=== PATIENT | female | born 1975 | race Caucasian/White ===

== ENCOUNTER → 2019-08-24 13:41 | Outpatient (BNVA) | payer MEDICAID, SELFPAY | PROVIDERS: PCP Physician Assistant; Visit Provider Nurse Practitioner | DX: G89.4 Chronic pain syndrome (principal); M54.5 Low back pain; M79.2 Neuralgia and neuritis, unspecified; Z79.891 Long term (current) use of opiate analgesic | CPT/HCPCS: 99214 ==

== ENCOUNTER 2019-08-31 07:04 | Outpatient (CLI) | payer MEDICAID, SELFPAY ==
[2019-08-31 07:59] VITALS: BP 133/79; PULSE 84; RESP 18; TEMP 36.6; O2SAT 94
--- NOTE | 2019-08-31 08:01 | PM.HPUD ---
H&P update H&P Update: DATE OF SURGERY/PROCEDURE: 08/31/19 DATE H&P PERFORMED: 08/31/19 Full H&P Perinent History: Medical/Surgical History: Medical History (Updated 08/24/19 @ 14:18 by CATRACHO Bryan) Arnold-Chiari malformation (Inactive) Chronic pain disorder (Acute) Facet arthropathy, lumbosacral (Acute) Hx of thrombosis of lower extremity (Acute) due to blood clots right leg 2017 Long-term use of high-risk medication (Chronic) Neuralgia (Chronic) Family History: Family History (Updated 08/24/19 @ 14:04 by FLORENCIO Rowe) Mother Stroke Social History: Social History Smoking and tobacco status: former smoker Alcohol intake: never
--- NOTE | 2019-08-31 08:01 | PM.OP ---
Operative Report Date of procedure: 08/31/19 Pre-op Diagnosis: Mechanical complication of gastrostomy tube. Post-op diagnosis: same Procedure Done: Change of gastrostomy tube. Pathology: none sent Surgeon: Ronny Mccarty Anesthesia: None Estimated blood loss (mL): 0 Condition: stable Procedure: The patient was encountered in the GI lab. The existing gastrostomy tube balloon was already deflated and the 16 [place]ar[place]uan tube was removed intact. A new 18 [place]araguan JULIETA gastrostomy tube was easily inserted into the gastrostomy tract and the balloon was inflated with 10 mL of sterile saline. The bolster was brought down to the skin over the top of a drain sponge. The patient was hoping to get a little larger tube in place which we did today; I made the patient aware that perhaps the next time this needs to be replaced, we can move up to a 20 [place]uan tube. The patient was discharged from the GI lab in stable condition following the procedure.
[2019-08-31 08:09] VITALS: BMI 31.3
== END 2019-08-31 07:05 | disposition home or self-care (01) ==
PROVIDERS: PCP Physician Assistant; Visit Provider Surgery
DX: K94.23 Gastrostomy malfunction (principal)
CPT/HCPCS: 12345; 43760; 43762; B4087

== ENCOUNTER 2019-09-14 14:20 | Outpatient (CLI) | payer MEDICAID, SELFPAY ==
--- NOTE | 2019-09-14 14:23 | MM_ITS ---
WS: [id number] SCREENING DIGITAL MAMMOGRAM WITH CAD HISTORY: SCREENING COMPARISON: None available. Bilateral CC and MLO views submitted. Computer aided detection analyzed. Breast composition: There are scattered areas of fibroglandular density. No suspicious masses, microc alcifications or architectural distortion. MM/[place] [id number] IMPRESSION: BI-RADS: 1-Negative FOLLOW UP: 1 Year Follow-up
== END 2019-09-14 14:21 | disposition home or self-care (01) ==
LOC: RADSHAW 14:20
PROVIDERS: PCP Physician Assistant; Visit Provider Physician Assistant
DX: Z12.31 Encounter for screening mammogram for malignant neoplasm of breast (principal)
CPT/HCPCS: 77067

== ENCOUNTER → 2019-11-02 14:03 | Outpatient (BNVA) | payer MEDICARE, MEDICAID, SELFPAY | PROVIDERS: PCP Physician Assistant; Visit Provider Nurse Practitioner | DX: G89.4 Chronic pain syndrome (principal); M54.9 Dorsalgia, unspecified; Q07.00 Arnold-Chiari syndrome without spina bifida or hydrocephalus; Z79.891 Long term (current) use of opiate analgesic | CPT/HCPCS: 99213; 99214 ==

== ENCOUNTER → 2020-01-09 10:46 | Outpatient (BNVA) | payer MEDICARE, MEDICAID, SELFPAY | PROVIDERS: PCP Physician Assistant; Visit Provider Anesthesiology | DX: G89.4 Chronic pain syndrome (principal); M54.41 Lumbago with sciatica, right side; M54.42 Lumbago with sciatica, left side; M54.9 Dorsalgia, unspecified; Q07.00 Arnold-Chiari syndrome without spina bifida or hydrocephalus; Z79.891 Long term (current) use of opiate analgesic | CPT/HCPCS: 99213; 99214 ==

== ENCOUNTER → 2020-02-29 12:45 | Outpatient (BNVA) | payer MEDICARE, MEDICAID, SELFPAY | PROVIDERS: PCP Physician Assistant; Visit Provider Nurse Practitioner | DX: G89.4 Chronic pain syndrome (principal); M54.41 Lumbago with sciatica, right side; M54.42 Lumbago with sciatica, left side; Q07.00 Arnold-Chiari syndrome without spina bifida or hydrocephalus; Z79.891 Long term (current) use of opiate analgesic | CPT/HCPCS: 99213 ==

== ENCOUNTER 2020-04-04 10:00 | Outpatient (CLI) | payer MEDICARE, MEDICAID, SELFPAY ==
--- NOTE | 2020-04-04 10:05 | XR_ITS ---
WS: [id number] DEXA (DUAL ENERGY X-RAY ABSORPTIOMETRY) Bone mineral density was performed using a [email or web address] machine. HISTORY: POSTMENOPAUSAL ESTROGEN DEFICIENCY COMPARISON: None available. Lumbar spine BMD (L1-L4): 1.198 g/cm2 T score: 0.2 Z score: -0.4 Total hip BMD: Left: 0.808 g/cm2. T score: -1.6 Z score: -1.7 Right: 0.736 g/cm2. T score: -2.2 Z score: -2.3 10 year probability of a major osteoporotic fracture is 6%. XR/XR DEXA axial skeleton* [id number] IMPRESSION: OSTEOPENIA based upon the WHO classification for females.
== END 2020-04-04 10:01 | disposition home or self-care (01) ==
PROVIDERS: PCP Physician Assistant; Visit Provider Physician Assistant
DX: Z78.0 Asymptomatic menopausal state (principal); M85.89 Other specified disorders of bone density and structure, multiple sites; M54.10 Radiculopathy, site unspecified
CPT/HCPCS: 77080; 95910

== ENCOUNTER 2020-04-22 08:02 | Outpatient (CLI) | payer MEDICARE, MEDICAID, SELFPAY ==
--- NOTE | 2020-04-22 | MR_ITS ---
WS: [id number] MRI LUMBAR SPINE NONCONTRAST HISTORY: RADICULAR LOW BACK PAIN COMPARISON: None available. TECHNIQUE: Sagittal and axial multisequence imaging is submitted. Alicia 1 malformation. Pegging and inferior displacement of the cerebellar tonsils. Normal lumbar alignment with no compression fractures or marrow edema. Mild disc space narrowing and desiccation at L5-S1 and at T10-11. Conus terminates normally at L1. L1-L2: Normal. L2-L3: Normal. L3-L4: Mild annular disc bulging with facet and ligamentum flavum hypertrophy. Very minimal narrowing of the subarticular recesses. No significant stenosis. L4-L5: Broad-based central to RIGHT paracentral disc protrusion contacting the thecal sac. Disc abuts the L5 nerve roots with greater displacement of the RIGHT L5 nerve root. Mild central stenosis. Mode rate subarticular recess narrowing. L5-S1: Mild annular disc bulging with a focal central disc protrusion. Disc and facet joint arthritis encroaching upon the subarticular recesses. Moderate LEFT and mild RIGHT subarticular recess stenosi s. Paravertebral soft tissues are normal. Aortic stent graft is noted. MR/MR lumbar spine wo con* [id number] IMPRESSION: 1. Moderate bilateral subarticular recess narrowing at L4-5 with encroachment upon the L5 nerve roots, RIGHT greater than LEFT. 2. Subarticular recess stenosis at L5-S1 with encroachment upon the S1 nerve r oots bilaterally, LEFT greater than RIGHT.
== END 2020-04-22 08:03 | disposition home or self-care (01) ==
LOC: RADSHAW 08:05
PROVIDERS: PCP Physician Assistant; Visit Provider Physician Assistant
DX: M54.16 Radiculopathy, lumbar region (principal); M48.07 Spinal stenosis, lumbosacral region
CPT/HCPCS: 72148

== ENCOUNTER → 2020-05-02 12:48 | Outpatient (BNVA) | payer MEDICARE, MEDICAID, SELFPAY | PROVIDERS: PCP Physician Assistant; Visit Provider Nurse Practitioner | DX: G89.4 Chronic pain syndrome (principal); M54.42 Lumbago with sciatica, left side; M54.41 Lumbago with sciatica, right side; M54.9 Dorsalgia, unspecified; G62.9 Polyneuropathy, unspecified; Z79.891 Long term (current) use of opiate analgesic | CPT/HCPCS: 99213 ==

== ENCOUNTER → 2020-05-09 08:57 | Outpatient (BNVA) | payer MEDICARE, MEDICAID, SELFPAY | PROVIDERS: PCP Physician Assistant; Visit Provider Licensed Practical Nurse | DX: M51.17 Intervertebral disc disorders with radiculopathy, lumbosacral region (principal); G62.89 Other specified polyneuropathies; F17.210 Nicotine dependence, cigarettes, uncomplicated | CPT/HCPCS: 99204 ==

== ENCOUNTER 2020-05-28 15:31 | Outpatient (RCR) | payer MEDICARE, MEDICAID, SELFPAY | END 2020-06-08 23:59 | disposition home or self-care (01) | LOC: SPT 15:31 | PROVIDERS: PCP Physician Assistant; Referring Provider Licensed Practical Nurse; Visit Provider Licensed Practical Nurse | DX: G62.89 Other specified polyneuropathies (principal); M51.17 Intervertebral disc disorders with radiculopathy, lumbosacral region | CPT/HCPCS: 97110; 97161 ==

== ENCOUNTER → 2020-06-04 13:57 | Outpatient (BNVA) | payer MEDICARE, MEDICAID, SELFPAY | PROVIDERS: PCP Physician Assistant; Visit Provider Licensed Practical Nurse | DX: M51.17 Intervertebral disc disorders with radiculopathy, lumbosacral region (principal); G62.89 Other specified polyneuropathies; F17.210 Nicotine dependence, cigarettes, uncomplicated | CPT/HCPCS: 99213 ==

== ENCOUNTER 2020-06-09 06:00 | Outpatient (RCR) | payer MEDICARE, MEDICAID, SELFPAY | END 2020-07-08 23:59 | disposition home or self-care (01) | LOC: SPT 06:00 | PROVIDERS: PCP Physician Assistant; Referring Provider Licensed Practical Nurse; Visit Provider Licensed Practical Nurse | DX: M51.17 Intervertebral disc disorders with radiculopathy, lumbosacral region (principal); G62.89 Other specified polyneuropathies | CPT/HCPCS: 97110 ==

== ENCOUNTER → 2020-06-24 08:19 | Outpatient (BNVA) | payer MEDICARE, MEDICAID, SELFPAY | PROVIDERS: PCP Physician Assistant; Visit Provider Specialist | DX: G57.30 Lesion of lateral popliteal nerve, unspecified lower limb (principal); M51.17 Intervertebral disc disorders with radiculopathy, lumbosacral region; Q07.00 Arnold-Chiari syndrome without spina bifida or hydrocephalus; F17.210 Nicotine dependence, cigarettes, uncomplicated | CPT/HCPCS: 95860; 99202 ==

== ENCOUNTER → 2020-06-26 13:21 | Outpatient (BNVA) | payer MEDICARE, MEDICAID, SELFPAY | PROVIDERS: PCP Physician Assistant; Visit Provider Anesthesiology | DX: G89.29 Other chronic pain (principal); M51.17 Intervertebral disc disorders with radiculopathy, lumbosacral region; M54.9 Dorsalgia, unspecified; G62.89 Other specified polyneuropathies; F17.210 Nicotine dependence, cigarettes, uncomplicated; Z79.891 Long term (current) use of opiate analgesic | CPT/HCPCS: 99213; 99214 ==

== ENCOUNTER → 2020-07-10 14:31 | Outpatient (BNVA) | payer MEDICARE, MEDICAID, SELFPAY | PROVIDERS: PCP Physician Assistant; Visit Provider Licensed Practical Nurse | DX: M51.17 Intervertebral disc disorders with radiculopathy, lumbosacral region (principal); G62.89 Other specified polyneuropathies; F17.210 Nicotine dependence, cigarettes, uncomplicated | CPT/HCPCS: 99213 ==

== ENCOUNTER → 2020-09-03 13:13 | Outpatient (BNVA) | payer MEDICARE, MEDICAID, SELFPAY | PROVIDERS: PCP Physician Assistant; Visit Provider Anesthesiology | DX: G89.4 Chronic pain syndrome (principal); M51.17 Intervertebral disc disorders with radiculopathy, lumbosacral region; F17.210 Nicotine dependence, cigarettes, uncomplicated; Z79.891 Long term (current) use of opiate analgesic; Z79.899 Other long term (current) drug therapy | CPT/HCPCS: 99213 ==

== ENCOUNTER → 2020-11-01 12:47 | Outpatient (BNVA) | payer MEDICARE, MEDICAID, SELFPAY | PROVIDERS: PCP Physician Assistant; Visit Provider Anesthesiology | DX: G89.4 Chronic pain syndrome (principal); M48.062 Spinal stenosis, lumbar region with neurogenic claudication; M51.17 Intervertebral disc disorders with radiculopathy, lumbosacral region; F17.210 Nicotine dependence, cigarettes, uncomplicated; Z79.891 Long term (current) use of opiate analgesic; Z79.899 Other long term (current) drug therapy | CPT/HCPCS: 99213 ==

== ENCOUNTER → 2020-11-22 13:07 | Outpatient (BNVA) | payer MEDICARE, MEDICAID, SELFPAY | PROVIDERS: PCP Physician Assistant; Visit Provider Orthopaedic Surgery | DX: Z01.812 Encounter for preprocedural laboratory examination (principal); Z20.822 Contact with and (suspected) exposure to COVID-19 | CPT/HCPCS: 87635 ==

== ENCOUNTER → 2020-11-27 12:59 | Outpatient (BNVA) | payer MEDICARE, MEDICAID, SELFPAY | PROVIDERS: Visit Provider Orthopaedic Surgery | DX: Z20.822 Contact with and (suspected) exposure to COVID-19 (principal) | CPT/HCPCS: 87635 ==

== ENCOUNTER 2020-12-02 11:48 | Day surgery (SDC) | payer MEDICARE, MEDICAID, SELFPAY ==
[2020-11-29 15:10] VITALS: BMI 33.9
[2020-12-02] VITALS (9 sets, daily range): BP systolic 93–151; BP diastolic 41–98; PULSE 71–100; RESP 12–20; TEMP 36.1–36.6; O2SAT 96–99
--- NOTE | 2020-12-02 | SCC_ITS ---
Procedure Done: L4/5 bilateral decompression 16.2 seconds of fluoroscopic guidance, for a cumulative dose of 12.21 mGy, was provided to Dr. Powell by the radiology department. C-arm images of the lumbar spine were saved for the patient's permanent record. [facility]
--- NOTE | 2020-12-02 | XR_ITS ---
WS: [id number] C-ARM RADIOGRAPHS LUMBAR SPINE; 5 IMAGES HISTORY: L4/5 bilateral decompression COMPARISON: 04/22/2020 Intraoperative imaging during decompression at the L4-5 level. XR/XR lumbar spine 2-3V* [id number] IMPRESSION: Intraoperative imaging during L4-5 decompression.
--- NOTE | 2020-12-02 12:04 | ECG_ITS ---
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
--- NOTE | 2020-12-02 12:21 | P.ANESASSM_ITS ---
Pre-Anesthetic Assessment Pre-Anesthetic Assessment: Height/Weight: Height 1.65 m Weight 92.533 kg Preop Diagnosis: lumbar stenosis Proposed Procedure: Operation Date: 12/02/20 13:30 Proposed Procedures p decompression L4/5 30430 m48.062(Bilateral) - Get Powell DO Social: Social History: No alcohol and No tobacco Exam: Pre-Anes Outpt Exam: alert, oriented x 3, clear to auscultation bilaterally and regular rate & rhythm Airway: Submandibular: WNL Cervical ROM: WNL Dentition: False History/ROS: No significant history except as noted Pulmonary: Pulmonary: None reported CV/HEM: CV/HEM: None reported Metabolic: Metabolic: Morbid obesity Anesthetic Plan: ASA status: 3 Anesthesia: Anesthesia Evaluation and General PFSH Anesthesia PFSH: Medical History Chronic pain disorder Encounter for long-term opiate analgesic use Facet arthropathy, lumbosacral History of DVT (deep vein thrombosis) Hx of thrombosis of lower extremity due to blood clots right leg 2017 Intervertebral disc disorder with radiculopathy of lumbosacral region Long-term use of high-risk medication Neuralgia Opioid contract exists Surgical History Arnold-Chiari malformation 01/2018 [facility] Posterior fossa decompression. Complication of feeding tube 10/01/2019 Dr. Javan Mccarty. Change of gastrostomy tube. Hx of colectomy colostomy and reversal 04/1999 placement then reversed 1999 Hx of hysterectomy Hx of knee surgery 1 total knee replacement right side then additional 3 surgeries on the right knee Hx of tubal ligation Family History Mother Stroke Social History Smoking and tobacco status: current every day smoker Alcohol intake: never Household members: family Marital status: Current occupational status: disabled History of recent travel: No Data Anesthesia Cardiac Studies: No Data to Display
[2020-12-02] MEDS: sodium chloride 0.9% 1,000 ML 30 ML IV (12:47)
--- NOTE | 2020-12-02 14:05 | W.PM.OPSUD ---
Surgery/Procedure H&P Update DATE OF PROCEDURE: December 02, 2020 DATE H&P PERFORMED: 12/02/20 H&P UPDATE INFORMATION: I have reviewed H&P completed within last 30 days, I have examined patient prior to procedure and No changes to prior documentation PREOP DIAGNOSIS: lumbar stenosis PLANNED PROCEDURE: Operation Date: 12/02/20 13:30 Proposed Procedures p decompression L4/5 92017 m48.062(Bilateral) - Get Powell DO
--- NOTE | 2020-12-02 14:27 | P.HP_ITS ---
Providers/Chief Complaint Primary Care Provider: Mis Womack Chief Complaint: lumbar spine decompression History of Present Illness [facility]hi [facility]onso [facility] 44 [facility] for evaluation of her back pain. She is established with pain management. She has had back pain for 3 years, gradually worsening over time. She states she has had injections approximately 1.5 years ago which did help some. She has tried formal physical therapy. She has chronic numbness and tingling to her bilateral lower extremities with the right lower extremity being worse. She has had an EMG/NCS of her bilateral lower e xtremtieis. Associated symptoms: Denies abdominal pain, chills, fever(s), nausea or vomiting Review of Systems Narrative: Const: Denies: fever(s) or chills Card: Denies: chest pain or dyspnea on exertion Resp: Denies: dyspnea or productive cough GI: Denies: abdominal pain, nausea or vomiting : Denies: difficulty voiding Musc: Reports: back pain Skin/Breast: Denies: changes in skin color or dry skin Neuro: Denies: numbness in extremities or weakness in extremities Psych: Denies: anxiety Gabriel/Lymph: Denies: easy bruising or easy bleeding Medications/Allergies Home Medications Medication Instructions Recorded Confirmed Last Taken Type atorvastatin 20 mg tablet 20 mg PO QDAY 08/24/19 12/02/20 12/01/20 History cholecalciferol (vitamin D3) 1,250 50,000 unit PO DIRECTED 08/24/19 12/02/20 12/01/20 History mcg (50,000 unit) capsule escitalopram oxalate 10 mg tablet 10 mg PO QDAY 08/24/19 12/02/20 12/01/20 History warfarin 5 mg tablet 5 mg PO QDAY 08/24/19 12/02/20 11/28/20 History magnesium oxide 400 mg PO DAILY 08/31/19 12/02/20 12/01/20 History warfarin 1 mg tablet See Rx Instructions PO DAILY 01/09/20 12/02/20 11/28/20 History bupropion HCl 100 mg tablet,12 hr 100 mg PO BID 04/04/20 12/02/20 12/01/20 History sustained-release hydrocodone 10 mg-acetaminophen 1 tab PO .FIVE TIMES DAY PRN 30 11/01/20 12/02/20 12/02/20 07:30 Rx 325 mg tablet Days #150 tab zonisamide 100 mg capsule 400 mg PO .HS #120 cap 11/01/20 12/02/20 12/01/20 Rx Allergies Allergy/AdvReac Type Severity Reaction Status Date / Time No Known Allergies Allergy Verified 12/02/20 12:39 PFSH Acute PFSH: Medical History Chronic pain disorder Encounter for long-term opiate analgesic use Facet arthropathy, lumbosacral History of DVT (deep vein thrombosis) Hx of thrombosis of lower extremity due to blood clots right leg 2017 Intervertebral disc disorder with radiculopathy of lumbosacral region Long-term use of high-risk medication Neuralgia Opioid contract exists Surgical History Arnold-Chiari malformation 01/2018 [facility] Posterior fossa decompression. Complication of feeding tube 10/01/2019 Dr. Javan Mccarty. Change of gastrostomy tube. Hx of colectomy colostomy and reversal 04/1999 placement then reversed 1999 Hx of hysterectomy Hx of knee surgery 1 total knee replacement right side then additional 3 surgeries on the right knee Hx of tubal ligation Family History Mother Stroke Social History Smoking and tobacco status: current every day smoker Alcohol intake: never Household members: family Marital status: Current occupational status: disabled History of recent travel: No Vitals/I&O/Wt Last Vital Signs Temp 97.6 F 12/02/20 12:42 Pulse 83 12/02/20 12:42 Resp 18 12/02/20 12:42 BP 138/71 12/02/20 12:42 Pulse Ox 98 12/02/20 12:42 Physical Exam Narrative: EXAM NARRATIVE: EXAM NARRATIVE: CONSTITUTIONAL: The patient is normal appearing, well groomed, cooperative and in no apparent distress. GENERAL: Patient in no acute distress. Well nourished. CARDIAC: Regular rate and rhythm. CHEST: Normal inspiratory effort, normal respiratory rate. ABDOMEN: Soft and non-tender. SKIN: Clear, warm and intact. NEURO?PSYCH: The patient is alert and oriented to person, place and time. NEUROVASCULAR: Upper Extremity Sensory - SILT. 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 Radial/ Ulnar/ Median in intact Lower Extremity Sensory - SILT. Motor Strength: Hip flexion L2/3; Ant/inner thigh: 5/5; Hip adduction L2/3: 5/5; Knee extension L4 Lat thigh: 5/5; Toe dorsiflexion L5: 5/5; Ankle dorsiflexion L5/ S1: 5/5; Plantar flexion S1: 5/5. DTR: Triceps 2+; Brachioradialis 2+; Patellar 2+; Achilles 2+. MUSCULOSKELETAL: UPPER EXTREMITIES: The patient had full active ROM in fingers, wrist, elbow, and shoulder. The patient demonstrated ability to fully flex/extend/abduct/adduct fingers, make ok sign, cross 2nd/3rd digits, extend 1st digit fully.. Radial pulse 2+, CR<2 seconds. LOWER EXTREMITIES: Pt has full, active ROM of toes, ankle, knee, and hip. Dorsalis pedis & posterior tibialis pulses 2+, CR<2 seconds. SPINE: Skin warm, dry, intact. A&P Assessment and plan (1) Lumbar stenosis with neurogenic claudication: lumbar decompression today Status: Acute Attestations Medical Necessity Statement*: failed conservative treatment Coding Level of Care Code Acute [employer] [facility] Diagnoses Lumbar stenosis with neurogenic claudication M48.062
[2020-12-02 15:18] LABS: Basophils # 0.1 10^3/uL (0.0-0.1); Basophils % 0.7 %; Eosinophils # 0.1 10^3/uL (0.0-0.8); Eosinophils % 1.4 %; Hematocrit 38.2 % (37.0-47.0); Hemoglobin 12.6 g/dL (11.5-15.3); Lymphocytes # 2.3 10^3/uL (0.8-4.8); Lymphocytes % 33.4 %; Mean Corpuscular Hemoglobin 31.3 pg (28.0-34.0); Mean Corpuscular Volume 94.8 fL (81-99); Monocytes # 0.5 10^3/uL (0.2-0.9); Monocytes % 6.4 %; Neutrophils # 4.05 10^3/uL (1.8-7.7); Neutrophils % 57.8 %; Nucleated Red Blood Cells % 0 %; Platelet Count 174 10^3/cmm (130-400); Red Blood Count 4.03 10^6/uL (4.1-5.3); Red Cell Distribution Width 12.3 % (12.1-15.1)
[2020-12-02] MEDS: fentaNYL 50 mcg/mL INJ 2mL IVP ×2 (16:20→16:25)
--- NOTE | 2020-12-02 16:22 | P.OP_ITS ---
Operative Report Date of procedure: December 02, 2020 Pre-op Diagnosis: lumbar stenosis Post-op diagnosis: same Procedure Done: L4/5 bilateral decompression Surgeon: Get Powell Anesthesia: General Estimated blood loss (mL): 5 Condition: stable Disposition: PACU Procedure: Patient is brought to the operative suite. After undergoing anesthesia they are placed in the supine position. All areas of impingement are well padded. Patient is then prepped and draped in the normal sterile fashion. A skin incision is made over the L4/5 level. This is confirmed under c-arm guidance. A series of dilators are passed and the tubular retractor is docked on the L4 lamina. A bovie is used to clear the soft tissue off the lamina and the L 4/5 facet joint. A high speed faiza is then used to perform the laminectomy and take down the medial aspect of the L 4/5 facet joint. A ke rrison rongeure was then used to take down the remaining lamina and smooth the edged of the laminectomy up to the point where the ligamentum flavum attaches. Attention was then brought to the medial aspect of the facet joint. The remaining medial aspect of the superior and inferior aspect of the facet joint were taken down with the kerrison from the pedicle of L4 to L 5. The facet joint had significant hypertrophy. Attention was then brought to the Ligamentum Flavum. The ligament was taken down from the lamina of L4 to L5 and out medially to the remaining facet joint. The ligament was thick. The dura was then exposed. The dura was in good repair. The L4 nerve was then traced with a curette out the L4/5 foramen and found to be adequately decompressed. The L5 nerve was traced with a curette around the L5 pedicle. The lateral recess was opened with a kerrison helping to further decompress the L5 nerve. The tubular retractor was then tilted to the contralateral side. The bovie was used to take down the soft tissue on the spinous process. The high speed faiza was used to take down the spinous process and then the contralateral lamina of L4. The kerrison rongeur was used to take down the remaining lamina to the point where the ligamentum flavum attached and the ligamentum flavum was taken down from L4 to L5. The kerrison rongeur was then used to reach across and take down the medial aspect of the contralateral L4/5 facet joint.The currete was used to trace the contralateral L4 nerve out the L4/5 foramen to make sure it was decompressed adequatesly and the L5 was traced around the L5 pedicle. The lateral recess was opened further with the kerrison to ensure the L5 is adequately decompressed. Wound is then irrigated copiously with saline and surgiflo is used to stop any bleeding. The tubular retractor is removed and the wound is closed with vicryl and monocryl suture. Glue is then used to protect the wound. A sterile dressing is then placed. Patient was then placed in the supine position and transferred to the PACU in stable condition.
--- NOTE | 2020-12-02 16:51 | SUR.PHASEII ---
1641 Received patient from pacu A&O states she is at 910 but lives at 810 at home. Was given IV med in PACU. will give oral med when tolerating fluids.
[2020-12-02] MEDS: HYDROcodone-acetaminophen 10-325 mg Tablet 1 TAB PO (17:18)
== END 2020-12-02 17:40 | disposition home or self-care (01) ==
PROVIDERS: PCP Physician Assistant; Visit Provider Orthopaedic Surgery
PROC: (CPT 63005; principal; 2020-12-02 13:10)
DX: M48.061 Spinal stenosis, lumbar region without neurogenic claudication (principal); E66.01 Morbid (severe) obesity due to excess calories; Z68.33 Body mass index [BMI] 33.0-33.9, adult; Z86.718 Personal history of other venous thrombosis and embolism; Z79.891 Long term (current) use of opiate analgesic; F17.210 Nicotine dependence, cigarettes, uncomplicated; Z79.01 Long term (current) use of anticoagulants; G89.29 Other chronic pain
CPT/HCPCS: 63047; 72100; 76000; 85025; 93005; J0690; J1100; J2405; J2704; J3010; J3490; J7030

== ENCOUNTER 2020-12-04 09:45 | Emergency (ER) | payer MEDICARE, MEDICAID, SELFPAY ==
[2020-12-04] VITALS (7 sets, daily range): BP systolic 134–170; BP diastolic 83–97; PULSE 98–111; RESP 18–20; TEMP 36.5; O2SAT 95–99; BMI 33.9
--- NOTE | 2020-12-04 09:56 | XR_ITS ---
WS: [id number] Exam: XR hip RT 2-3V wo/w pel* [id number] Date/Time of Exam: 12/04/2020 10:03 AM Reason For Exam: pain No fracture or dislocation. The joint compartment as well preserved. Small calcification seen along t he lateral margin of the acetabulum. XR/XR hip RT 2-3V wo/w pel* [id number] IMPRESSION: 1. No fracture or other significant finding.
[2020-12-04] MEDS: ondansetron 2 mg/ML SDV 2 mL 4 MG IVP (10:14)
[2020-12-04] MEDS: morphine 4 mg/mL SDV 1 mL 6 MG IVP ×2 (10:14→12:04)
--- NOTE | 2020-12-04 10:41 | W.ED.EXTPRO ---
HPI - Extremity Problem General: Chief complaint: Extremity Problem,Nontraumatic Stated complaint: r hip and back pain Time Seen by Provider: 12/04/20 09:46 History of Present Illness: HPI Narrative: 44-year-old female comes in complaining of right hip pain. 2 days ago she had a right L4-5 laminectomy. She told me she did not have a lot of extremity discomfort prior to that however reviewing Dr. Powell's note she is having bilateral numbness and lower extremity symptoms with the right being greater than the left on EMG. She has had no trauma or falls since the procedure. She denies any hip pain prior. Her pain is isolated to the hip but she initially states she was able to walk without difficulty but now has such severe pain she cannot walk. MD Complaint: joint pain Onset (ago): hour(s) Pain Consistency: constant Location: right (hip) Severity scale (1-10): 10 Quality: burning Radiation: none Relieving factors: nothing Exacerbating factors: range of motion, weight bearing and walking Associated symptoms: Deny arthralgias, chest pain, fever(s), myalgias, rash or short of breath Review of Systems Const: Denies: fever(s) ENMT: Denies: throat pain, ear or mastoid pain, nasal discharge or nasal congestion Card: Denies: chest pain Resp: Denies: dyspnea, productive cough or non-productive cough GI: Denies: abdominal pain, nausea, vomiting, hematemesis, coffee ground emesis, diarrhea, constipation, bloating, hematochezia or melena : Denies: flank pain, difficulty voiding, dysuria, urinary frequency or urinary urgency Skin/Breast: Denies: rash PFSH ED PFSH: Medical History Chronic pain disorder Encounter for long-term opiate analgesic use Facet arthropathy, lumbosacral History of DVT (deep vein thrombosis) Hx of thrombosis of lower extremity due to blood clots right leg 2017 Intervertebral disc disorder with radiculopathy of lumbosacral region Long-term use of high-risk medication Neuralgia Opioid contract exists Surgical History Arnold-Chiari malformation 01/2018 [facility] Posterior fossa decompression. Complication of feeding tube 10/01/2019 Dr. Javan Mccarty. Change of gastrostomy tube. Hx of colectomy colostomy and reversal 04/1999 placement then reversed 1999 Hx of hysterectomy Hx of knee surgery 1 total knee replacement right side then additional 3 surgeries on the right knee Hx of tubal ligation Family History Mother Stroke Social History Smoking and tobacco status: current every day smoker Alcohol intake: never Household members: family Marital status: Current occupational status: disabled History of recent travel: No Physical Exam Const: COMMON NORMALS: no acute distress GENERAL APPEARANCE: cooperative and comfortable ORIENTATION/CONSCIOUSNESS: Yes awake, Yes oriented to person, Yes oriented to place and Yes oriented to time HENMT: COMMON NORMALS: normocephalic, atraumatic, hearing grossly normal bilaterally and external ears normal HEAD & SCALP: normocephalic and atraumatic EXTERNAL EAR: Yes external ears normal Eye: COMMON NORMALS: Equal, round and reactive pupils present, EOMs intact bilaterally, conjunctivae normal and no scleral icterus CONJUNCTIVA: Yes conjunctivae normal PUPIL: Yes Equal, round and reactive pupils present Neck/C-Spine: COMMON NORMALS: full ROM, no lymphadenopathy, supple and no JVD Lymph: LYMPHATIC: no lymphadenopathy noted and no lymphedema noted Resp: COMMON NORMALS: normal respiratory effort, No retractions, No use of accessory muscles and clear to auscultation bilaterally AUSCULTATION: clear to auscultation bilaterally Cardio: COMMON NORMALS: no JVD, regular rate, regular rhythm and No murmurs present (Cardio) RATE: regular rate RHYTHM: regular rhythm GI: COMMON NORMALS: Soft to palpation and No hepatosplenomegaly present AUSCULTATION: Yes normoactive bowel sounds PALPATION: Yes Soft to palpation, No Tenderness to palpation present (GI), No Guarding due to palpation present (GI) and Yes No hepatosplenomegaly present Extremity: COMMON NORMALS: normal to inspection, capillary refill normal, no clubbing, cyanosis or edema, no calf tenderness and no pedal edema Neuro: SENSORIUM/ORIENTATION: Yes oriented to person, Yes oriented to place and Yes oriented to time Skin: COMMON NORMALS: no rashes or lesions noted GENERAL SKIN EXAM: no rashes or lesions noted Course Vital Signs: Vital signs: Vital Signs Temperature 97.7 F 12/04/20 09:52 Pulse Rate 98 12/04/20 14:38 Respiratory Rate 18 12/04/20 13:22 Blood Pressure 146/94 12/04/20 14:38 Pulse Oximetry 95 12/04/20 14:38 MDM - Extremity (Nontraumatic) MDM Narrative: Medical decision making narrative: Discussed with Dr. Powell he recommends steroids muscle relaxers follow-up in his office continue previously prescribed pain medications Lab Data: Labs: Lab Results 12/04/20 12/04/20 12/04/20 Range/Units 10:47 11:05 11:05 WBC 12.0 H (4.0-10.0) 10^3/ uL RBC 4.15 (4.1-5.3) 10^6/u L Hgb 12.9 (11.5-15.3) g/dL Hct 39.7 (37.0-47.0) % MCV 95.7 (81-99) fL MCH 31.1 (28.0-34.0) pg MCHC 32.5 (30.0-36.0) g/dL RDW 12.4 (12.1-15.1) % Plt Count 161 (130-400) 10^3/c mm MPV 9.2 (7.4-10.4) fL Neut % (Auto) 76.7 % Lymph % (Auto) 14.8 % Hunt % (Auto) 7.5 % Eos % (Auto) 0.4 % Baso % (Auto) 0.3 % Neut # (Auto) 9.18 H (1.8-7.7) 10^3/u L Lymph # (Auto) 1.8 (0.8-4.8) 10^3/u L Hunt # (Auto) 0.9 (0.2-0.9) 10^3/u L Eos # (Auto) 0.1 (0.0-0.8) 10^3/u L Baso # (Auto) 0.0 (0.0-0.1) 10^3/u L Nucleated RBC % (a uto) 0 % Nucleated RBCs # 0.0 /100WBC Sodium 133 L (136-145) mmol/L Potassium 3.7 (3.5-5.1) mmol/L Chloride 101 (98-107) mmol/L Carbon Dioxide 21 L (22-29) mmol/L Anion Gap 14.7 (5-19) BUN 13 (6-20) mg/dL Creatinine 0.9 (0.5-0.9) mg/dL GFR Calculation 67.4 L (90-130) mL/min Glucose 199 H (65-115) mg/dL Calculated Osmolal ity 282 L (285-295) mOsm/k g Calcium 8.6 (8.5-10.5) mg/dL Total Bilirubin 0.3 (0.15-1.2) mg/dL AST 14 (0-32) U/L ALT 14 (0-33) U/L Alkaline Phosphata se 85 (35-105) IU/L Total Protein 7.3 (6.6-8.7) g/dL Albumin 3.8 (3.5-5.2) g/dL Globulin 3.5 (1.3-4.6) g/dL Urine Color Straw (Yellow) Urine Appearance Clear (CLEAR) Urine pH 5 (5-7) Ur Specific Gravit y 1.010 (1.005-1.030) Urine Protein Neg (Negative) Urine Glucose (UA) Norm (Normal) Urine Ketones Negative (Negative) Urine Blood Neg (Negative) Urine Nitrate Negative (Negative) Urine Bilirubin Neg (Negative) Urine Urobilinogen Norm (Negative) mg/dL Ur Leukocyte Rebecca ase Negative (Negative) Discharge Plan Discharge Patient Disposition: Home Clinical Impression: Neuralgia Condition: Stable Prescriptions: New prednisone 20 mg tablet 20 mg PO TID Qty: 20 RF: 0 tizanidine 4 mg capsule 4 mg PO Q6H PRN (Reason: muscle spasticity) Qty: 20 RF: 0 No Action hydrocodone-acetaminophen 10-325 mg tablet 1 tab PO .FIVE TIMES DAY PRN (Reason: pain) 30 Days Qty: 150 RF: 0 magnesium oxide 400 mg magnesium Capsule 400 mg PO BEDTIME RF: 0 hydrocodone-acetaminophen 10-325 mg tablet 1 tab PO Q4H PRN (Reason: pain) 14 Days Qty: 60 RF: 0 atorvastatin 40 mg tablet 40 mg PO BEDTIME RF: 0 warfarin 5 mg tablet 5 mg PO BEDTIME RF: 0 gabapentin 100 mg capsule 100 mg PO BEDTIME RF: 0 Vitamin D2 1,250 mcg (50,000 unit) capsule 50,000 unit PO Q7D RF: 0 Zonegran 100 mg capsule 400 mg PO BEDTIME RF: 0 Discharge Orders: Discharge ED (Routine); Ordered 12/04/20 Ordered By: Brice Mercado Referrals: Mis Womack PA [Primary Care Provider] - Discharge Diet: Usual diet Discharge Activity: Limit activity as instructed Patient Instructions: Opioid Safety Coding Level of Care Code ED Insurance Claims Adjuster for Evelyneg Fwd Exam Comprehensive
[2020-12-04 11:04] LABS: Add Urine Microscopic? NO; Charge for UA Resulting for Rev
[2020-12-04 11:10] LABS: Basophils % 0.3 %; Eosinophils # 0.1 10^3/uL (0.0-0.8); Eosinophils % 0.4 %; Hematocrit 39.7 % (37.0-47.0); Hemoglobin 12.9 g/dL (11.5-15.3); Lymphocytes # 1.8 10^3/uL (0.8-4.8); Lymphocytes % 14.8 %; Mean Corpuscular HGB Conc 32.5 g/dL (30.0-36.0); Mean Corpuscular Hemoglobin 31.1 pg (28.0-34.0); Mean Corpuscular Volume 95.7 fL (81-99); Mean Platelet Volume 9.2 fL (7.4-10.4); Monocytes # 0.9 10^3/uL (0.2-0.9); Monocytes % 7.5 %; Neutrophils # 9.18 10^3/uL (1.8-7.7); Neutrophils % 76.7 %; Nucleated Red Blood Cells % 0 %; Platelet Count 161 10^3/cmm (130-400); Red Blood Count 4.15 10^6/uL (4.1-5.3); Red Cell Distribution Width 12.4 % (12.1-15.1)
[2020-12-04 11:33] LABS: Glucose Urine UA Norm (Normal); Protein Urine Neg (Negative); Urine Appearance Clear (CLEAR); Urine Color Straw (Yellow); pH Urine 5 (5-7)
--- NOTE | 2020-12-04 11:33 | PC.PHAR ---
pt states she takes care of her own medications-pt brought in some medication bottles-pt brought in 1mg of warfarin but states she is not taking that pt states that was dced 2 months ago-pt brought in medication bottle of bupropion 100mg tid filled on 11/05/20 30d/s pt states the pharmacy filled but states she is not taking pt states not taken for 3 months-pt states she is only taking warfarin 5mg po at hs
[2020-12-04 11:34] LABS: Bilirubin Urine Neg (Negative); Blood Urine Neg (Negative); Ketones Urine Negative (Negative); Leukocyte Esterase Urine Negative (Negative); Nitrate Urine Negative (Negative); Urobilinogen Urine Norm (Negative)
[2020-12-04 11:41] LABS: Alanine Aminotransferase 14 U/L (0-33); Albumin Level 3.8 g/dL (3.5-5.2); Alkaline Phosphatase 85 IU/L (35-105); Aspartate Amino Transferase 14 U/L (0-32); Blood Urea Nitrogen 13 mg/dL (6-20); Calcium 8.6 mg/dL (8.5-10.5); Carbon Dioxide 21 mmol/L (22-29); Chloride 101 mmol/L (98-107); Globulin 3.5 g/dL (1.3-4.6); Glomerular Filtration Rate 67.4 mL/min (90-130); Glucose 199 mg/dL (65-115); Osmolality Calculated 282 mOsm/kg (285-295); Sodium 133 mmol/L (136-145); Total Bilirubin 0.3 mg/dL (0.15-1.2); Total Protein 7.3 g/dL (6.6-8.7)
[2020-12-04] MEDS: dexamethasone 10 mg/mL INJ IVP (12:05)
[2020-12-04 12:06] LABS: Anion Gap 14.7 (5-19); Potassium 3.7 mmol/L (3.5-5.1)
[2020-12-04] MEDS: HYDROmorphone 1 mg/mL INJ 1 mL IVP ×2 (13:14→14:38)
== END 2020-12-04 14:49 | disposition home or self-care (01) ==
PROVIDERS: Emergency Provider Family Medicine; PCP Physician Assistant
DX: M79.2 Neuralgia and neuritis, unspecified (principal); Z79.01 Long term (current) use of anticoagulants; F17.210 Nicotine dependence, cigarettes, uncomplicated
CPT/HCPCS: 36415; 73502; 80053; 81003; 85025; 96374; 96375; 96376; 99283; J1100; J1170; J2270; J2405

== ENCOUNTER → 2021-01-07 12:45 | Outpatient (BNVA) | payer MEDICARE, MEDICAID, SELFPAY | PROVIDERS: PCP Physician Assistant; Visit Provider Anesthesiology | DX: G89.4 Chronic pain syndrome (principal); M51.17 Intervertebral disc disorders with radiculopathy, lumbosacral region; M54.9 Dorsalgia, unspecified; G62.89 Other specified polyneuropathies; F17.210 Nicotine dependence, cigarettes, uncomplicated; Z79.891 Long term (current) use of opiate analgesic; Z79.899 Other long term (current) drug therapy | CPT/HCPCS: 99213 ==

== ENCOUNTER → 2021-01-30 13:49 | Outpatient (BNVA) | payer MEDICARE, MEDICAID, SELFPAY | PROVIDERS: PCP Physician Assistant; Visit Provider Anesthesiology | DX: G89.4 Chronic pain syndrome (principal); M51.17 Intervertebral disc disorders with radiculopathy, lumbosacral region; M54.9 Dorsalgia, unspecified; M54.2 Cervicalgia; G62.89 Other specified polyneuropathies; G57.30 Lesion of lateral popliteal nerve, unspecified lower limb; F17.210 Nicotine dependence, cigarettes, uncomplicated; Z79.899 Other long term (current) drug therapy; Z79.891 Long term (current) use of opiate analgesic | CPT/HCPCS: 99214 ==

== ENCOUNTER 2021-03-17 07:00 | Outpatient (CLI) | payer MEDICARE, MEDICAID, SELFPAY ==
--- NOTE | 2021-03-17 07:15 | MR_ITS ---
WS: [id number] MRI LUMBAR SPINE NONCONTRAST TECHNIQUE: Sagittal T1, T2 and STIR imaging. Axial T1 and T2 imaging. CLINICAL INFORMATION: M48.061 - Spinal stenosis, lumbar region without neurogen... COMPARISON: MRI April 22, 2020 FINDINGS: Mild lumbar curve. No acute compression. No high-grade central canal stenosis. Prior postoperative ch anges right L4-5 hemilaminectomy. Small central protrusion T10-11. Chiari I malformation partially visualized in the registered client associate imaging. L1-L2: Normal. L2-L3: Left foraminal protrusion with mild left and no significant right foraminal narrowing. Mild fa cet arthropathy. L3-L4: Mild annular bulging with slight effacement of the ventral thecal sac. Left eccentric disc bul ging with mild left and no significant right foraminal narrowing. Slight effacement of the ventral th ecal sac. Moderate facet arthropathy. L4-L5: Postoperative changes right L4-5 hemilaminectomy new from previous with improved impingement t raversing right L5 nerve root. Mild residual narrowing of the subarticular recess. Mild central canal stenosis. Foramen are patent. Moderate facet arthropathy. L5-S1: Mild annular bulging with shallow central protrusion. Slight impingement traversing left great er than right S1 nerve roots. Mild facet arthropathy. Foramen are patent. Moderate facet arthropathy. Ventral concave compression of the thoracic cord at T5 level seen on the registered client associate imaging. This can be f urther evaluated with thoracic spine MRI without and with gadolinium. This may be incidental but diff erential considerations include arachnoid cyst, ventral adhesion/ventral cord herniation, or dorsal t horacic arachnoid web. Cord signal appears normal. Recommend correlation for thoracic cord symptoms. MR/MR lumbar spine wo con* [id number] IMPRESSION: 1. Mild lumbar curve. No acute compression. No high-grade central canal stenos is. 2. Right L4-5 hemilaminectomy is new from previous. No new disc protrusion. Mi ld residual narrowing of the subarticular recess improved from previous. 3. Broad-based shallow central protrusion L5-S1 impinges the traversing left g reater than right S1 nerve roots. 4. Mild left L3-4 foraminal narrowing. 5. Moderate facet arthropathy L3-4 and L4-L5. 6. Mild ventral compression of the thoracic cord at T5 level. This can be furt her evaluated with thoracic spine MRI without and with gadolinium if thoracic s pine symptoms. 7. Chiari I malformation partially visualized on the registered client associate imaging. This can b e further evaluated MRI head on an elective basis if not previously performed.
== END 2021-03-17 07:01 | disposition home or self-care (01) ==
LOC: RADSHAW 07:02
PROVIDERS: PCP Physician Assistant; Visit Provider Orthopaedic Surgery
DX: M48.061 Spinal stenosis, lumbar region without neurogenic claudication (principal); M51.27 Other intervertebral disc displacement, lumbosacral region; M47.816 Spondylosis without myelopathy or radiculopathy, lumbar region; G93.5 Compression of brain
CPT/HCPCS: 72148

== ENCOUNTER → 2021-04-01 13:02 | Outpatient (BNVA) | payer MEDICARE, MEDICAID, SELFPAY | PROVIDERS: PCP Physician Assistant; Visit Provider Anesthesiology | DX: G89.4 Chronic pain syndrome (principal); M51.17 Intervertebral disc disorders with radiculopathy, lumbosacral region; Q07.00 Arnold-Chiari syndrome without spina bifida or hydrocephalus; F17.210 Nicotine dependence, cigarettes, uncomplicated; Z79.891 Long term (current) use of opiate analgesic | CPT/HCPCS: 99213 ==

== ENCOUNTER 2021-04-23 11:18 | Outpatient (CLI) | payer MEDICARE, MEDICAID, SELFPAY ==
--- NOTE | 2021-04-23 11:31 | FL_ITS ---
WS: [id number] FL barium swallow modifd [id number] REASON FOR EXAM: Other dysphagia FLUOROSCOPY TIME: 1.5 minutes Swallowing of barium of varying consistencies was evaluated with fluoroscopy which was recorded for f jaylather review. Spot radiographs were also obtained. FINDINGS: There was no aspiration or significant retention of contrast bolus. Normal peristalsis in the distal esophagus. Detailed analysis report of the swallowing will be rendered by the speech therapy department after re view of the fluoroscopic recording. FL/FL barium swallow modifd [id number] IMPRESSION: Modified barium swallow as above.
== END 2021-04-23 11:19 | disposition home or self-care (01) ==
LOC: RAD 11:25
PROVIDERS: PCP Physician Assistant; Visit Provider Physician Assistant
DX: R13.19 Other dysphagia (principal)
CPT/HCPCS: 74230; 92611

== ENCOUNTER 2021-05-26 08:55 | Emergency (ER) | payer MEDICARE, MEDICAID, SELFPAY ==
[2021-05-26 09:01] VITALS: BP 156/87; PULSE 108; RESP 18; TEMP 36.8; O2SAT 97; BMI 33.7
--- NOTE | 2021-05-26 09:07 | USCV_ITS ---
Nhi Alonso Age: 45 Gender: F : 1975 Exam Date: 05/26/2021 09:22 Ordering Phys: Brice Mercado DO Technologist: Mis Reyes [place] [facility] [place]: RLE PAIN HISTORY: Lower extremity pain. PROCEDURES: Venous duplex imaging was performed in only the right lower extremity. The following venous structures were evaluated: common femoral vein, profunda vein, proximal portion of the greater saphenous vein, superficial femoral vein, and the popliteal vein. In addition, the posterior tibial and peroneal trunk were evaluated. Serial compression, augmentation maneuvers, and spectral Doppler flow evaluation were performed. FINDINGS: No evidence of DVT seen in any vessel visualized at this time. CONCLUSIONS No evidence of right lower extremity DVT. Umesh Beatty MD (Electronically Signed) Final Date: 26 May 2021 15:48 S
--- NOTE | 2021-05-26 09:27 | ED_ITS ---
HPI - Extremity Problem General: Chief complaint: Extremity Injury, Lower Stated complaint: SORE, BURNING, DISCOLORATION TO RLE(HX BLOOD CLOT) Time Seen by Provider: 05/26/21 08:56 History of Present Illness: HPI Narrative: 45-year-old female who presents to the emergency room with complaints of right leg pain. She reports pain at medial aspect of the right leg at the proximal lower leg she has scars in that area. They appear to be from varicose vein stripping there is multiple scars there however one is longer than would normally expect from a vein stripping procedure. Patient does smoke. She states she had a clot in her leg and was started on warfarin. Procedure was done in [place] several years ago. According to notes in chart she had a DVT but also had several knee surgeries. She reports she has been taking her Coumadin regularly. She has not really had any swelling in the leg. She denies any chest pain or shortness of breath. MD Complaint: joint pain Onset (ago): day(s) Pain Consistency: intermittent Location: right and lower extremity Quality: aching Radiation: distal Relieving factors: rest Exacerbating factors: weight bearing, walking and palpation Associated symptoms: Reports arthralgias; Deny chest pain, fever(s), myalgias, rash or short of breath Context: history of DVT Review of Systems Const: Denies: fever(s) ENMT: Denies: throat pain, ear or mastoid pain, nasal discharge or nasal congestion Card: Denies: chest pain Resp: Denies: dyspnea, productive cough or non-productive cough GI: Denies: abdominal pain, nausea, vomiting, hematemesis, coffee ground emesis, diarrhea, constipation, bloating, hematochezia or melena : Denies: flank pain, difficulty voiding, dysuria, urinary frequency or urinary urgency Skin/Breast: Denies: rash PFSH ED PFSH: Medical History Chronic pain disorder Encounter for long-term opiate analgesic use Facet arthropathy, lumbosacral History of DVT (deep vein thrombosis) Hx of thrombosis of lower extremity due to blood clots right leg 2017 Intervertebral disc disorder with radiculopathy of lumbosacral region Long-term use of high-risk medication Neuralgia Opioid contract exists Surgical History Arnold-Chiari malformation 01/2018 [facility] Posterior fossa decompression. Complication of feeding tube 10/01/2019 Dr. Javan Mccarty. Change of gastrostomy tube. Hx of colectomy colostomy and reversal 04/1999 placement then reversed 1999 Hx of hysterectomy Hx of knee surgery 1 total knee replacement right side then additional 3 surgeries on the right knee Hx of tubal ligation Family History Mother Stroke Social History Smoking and tobacco status: current every day smoker (less than 1 pck ) cigarettes Alcohol intake: never Household members: family Marital status: Current occupational status: disabled History of recent travel: No Physical Exam Const: COMMON NORMALS: no acute distress GENERAL APPEARANCE: cooperative and comfortable ORIENTATION/CONSCIOUSNESS: Yes awake, Yes oriented to person, Yes oriented to place and Yes oriented to time HENMT: COMMON NORMALS: normocephalic, atraumatic and hearing grossly normal bilaterally HEAD & SCALP: normocephalic and atraumatic Neck/C-Spine: COMMON NORMALS: no JVD Resp: COMMON NORMALS: normal respiratory effort, No retractions, No use of accessory muscles and clear to auscultation bilaterally AUSCULTATION: clear to auscultation bilaterally Cardio: COMMON NORMALS: no JVD, regular rate, regular rhythm and No murmurs present (Cardio) RATE: regular rate RHYTHM: regular rhythm GI: COMMON NORMALS: Soft to palpation and No hepatosplenomegaly present AUSCULTATION: Yes normoactive bowel sounds PALPATION: Yes Soft to palpation, No Tenderness to palpation present (GI), No Guarding due to palpation present (GI) and Yes No hepatosplenomegaly present Extremity: COMMON NORMALS: normal to inspection, capillary refill normal, no clubbing, cyanosis or edema and no pedal edema GENERAL: Yes calf tenderness (Right) Neuro: SENSORIUM/ORIENTATION: Yes oriented to person, Yes oriented to place and Yes oriented to time Skin: COMMON NORMALS: no rashes or lesions noted GENERAL SKIN EXAM: no rashes or lesions noted Course Vital Signs: Vital signs: Vital Signs Temperature 98.3 F 05/26/21 09:01 Pulse Rate 64 10/18/21 09:56 Respiratory Rate 18 05/26/21 09:56 Blood Pressure 120/69 05/26/21 09:56 Pulse Oximetry 97 05/26/21 09:56 MDM - Extremity (Nontraumatic) MDM Narrative: Medical decision making narrative: CBC is unremarkable venous duplex and arterial Doppler both normal no evidence of arterial occlusion or deep vein thrombosis. Recommend she continue the warfarin as previously prescribed can use topical Voltaren gel if persist follow-up with PCP return to the emergency room. Lab Data: Labs: Lab Results 05/26/21 05/26/21 09:37 09:37 WBC 7.5 10^3/uL 10^3/ uL (4.0-10.0) RBC 5.08 10^6/uL 10^6 /uL (4.1-5.3) Hgb 15.4 g/dL H g/dL (11.5-15.3) Hct 46.7 % % (37.0-47.0) MCV 91.9 fl fl (81-99) MCH 30.3 pg pg (28.0-34.0) MCHC 33.0 g/dL g/dL (30.0-36.0) RDW 12.6 % % (12.1-15.1) Plt Count 188 10^3/cmm 10^3 /cmm (130-400) MPV 9.2 fL fL (7.4-10.4) Neut % (Auto) 61.0 % % Lymph % (Auto) 32.1 % % Hays % (Auto) 4.8 % % Eos % (Auto) 1.3 % % Baso % (Auto) 0.5 % % Neut # (Auto) 4.59 10^3/uL 10^3 /uL (1.8-7.7) Lymph # (Auto) 2.4 10^3/uL 10^3/ uL (0.8-4.8) [place]ays # (Auto) 0.4 10^3/uL 10^3/ uL (0.2-0.9) Eos # (Auto) 0.1 10^3/uL 10^3/ uL (0.0-0.8) Baso # (Auto) 0.0 10^3/uL 10^3/ uL (0.0-0.1) Nucleated RBC % (a uto) 0 % % Nucleated RBCs # 0.0 /100WBC /100W BC PT Cancelled INR Cancelled Discharge Plan Discharge Patient Disposition: Home Clinical Impression: Knee pain, right Condition: Stable Prescriptions: New Voltaren Arthritis Pain 1 % gel 4 g topical QID Qty: 100 RF: 0 No Action hydrocodone-acetaminophen 10-325 mg tablet 1 tab PO .5 times a day 30 Days Qty: 150 RF: 0 gabapentin 300 mg capsule 300 mg PO TID RF: 0 Janumet 50-1,000 mg tablet 1 tab PO BID RF: 0 atorvastatin 40 mg tablet 40 mg PO BEDTIME RF: 0 warfarin 5 mg tablet 5 mg PO BEDTIME RF: 0 ergocalciferol (vitamin D2) [Vitamin D2] 1,250 mcg (50,000 unit) capsule 50,000 unit PO Q7D RF: 0 magnesium 500 mg Tablet 500 mg PO BEDTIME RF: 0 Zofran 4 mg Tablet 4 mg PO TID PRN (Reason: Nausea And Vomiting) RF: 0 melatonin 10 mg Tablet 10 mg PO BEDTIME PRN (Reason: Sleep) RF: 0 Discharge Orders: Discharge ED (Routine); Ordered 05/26/21 Ordered By: Brice Mercado Referrals: Mis Womack PA [Primary Care Provider] - Discharge Diet: Usual diet Discharge Activity: Resume usual activity Patient Instructions: Opioid Safety Activity Restrictions/Additional Instructions: Can use topical Voltaren gel or acetaminophen. Because you take Coumadin you should avoid nonsteroidal anti-inflammatory such as Aleve or ibuprofen. Coding Level of Care Code ED Lead Fabricator for Velvet Turner
--- NOTE | 2021-05-26 09:31 | USCV_ITS ---
Nhi Alonso Age: 45 Gender: F : 1975 Exam Date: 05/26/2021 09:36 Ordering Phys: Brice Mercado DO Technologist: Mis Reyes [place] [facility] [place]: [place] PAIN Risk Factors: Previous Vascular Surgery: RIGHT LEFT BP: 120.0 / BP: / 0 Waveform Velocity (cm/s) Velocity (cm/s) Waveform Triphasic 124.4 Iliac Prox Triphasic 108.4 Iliac Mid Triphasic 105.6 Iliac Distal Triphasic 95.9 MACHINE APPLICATOR CEMENTER Triphasic 110.3 SFA Prox Triphasic 93.7 SFA Mid Triphasic 76.1 SFA Dist Biphasic 46.0 POP Biphasic 73.8 DIRECTOR OF SERVICES N/A 0.0 DPA 1.0 SARINA FINDINGS Intimal thickening in the iliac and femoral artery on the right side. Triphasic Doppler waveforms in the iliac and femoral arteries. Biphasic waveforms in the popliteal and infrapopliteal vessels. No Doppler flow signals were noted in the right dorsalis pedis artery. Normal resting SARINA of 1.0 on the right side CONCLUSIONS 1. Normal resting SARINA on the right side. 2. Possible occlusion of the dorsalis pedis artery on the right side. Compared to the study from 07/14/2018, the possible occlusion of the right dorsalis pedis artery appears to be new. Dr. Mercado was informed about this finding Dr Gaurav Ortiz MD [facility] (Electronically Signed) Final Date: 27 May 2021 07:49 S
[2021-05-26 09:51] LABS: Basophils % 0.5 %; Eosinophils # 0.1 10^3/uL (0.0-0.8); Eosinophils % 1.3 %; Hematocrit 46.7 % (37.0-47.0); Hemoglobin 15.4 g/dL (11.5-15.3); Lymphocytes # 2.4 10^3/uL (0.8-4.8); Lymphocytes % 32.1 %; Mean Corpuscular Hemoglobin 30.3 pg (28.0-34.0); Mean Corpuscular Volume 91.9 fl (81-99); Mean Platelet Volume 9.2 fL (7.4-10.4); Monocytes # 0.4 10^3/uL (0.2-0.9); Monocytes % 4.8 %; Neutrophils # 4.59 10^3/uL (1.8-7.7); Nucleated Red Blood Cells % 0 %; Platelet Count 188 10^3/cmm (130-400); Red Blood Count 5.08 10^6/uL (4.1-5.3); Red Cell Distribution Width 12.6 % (12.1-15.1); White Blood Count 7.5 10^3/uL (4.0-10.0)
[2021-05-26 09:56] VITALS: BP 120/69; PULSE 64; RESP 18; O2SAT 97
== END 2021-05-26 10:12 | disposition home or self-care (01) ==
PROVIDERS: Emergency Provider Family Medicine; PCP Physician Assistant
DX: M25.561 Pain in right knee (principal); Z79.01 Long term (current) use of anticoagulants; Z86.718 Personal history of other venous thrombosis and embolism; F17.210 Nicotine dependence, cigarettes, uncomplicated
CPT/HCPCS: 85025; 93926; 93971; 99282

== ENCOUNTER → 2021-05-30 13:11 | Outpatient (BNVA) | payer MEDICARE, MEDICAID, SELFPAY | PROVIDERS: PCP Physician Assistant; Visit Provider Anesthesiology | DX: M51.17 Intervertebral disc disorders with radiculopathy, lumbosacral region (principal); M48.062 Spinal stenosis, lumbar region with neurogenic claudication; F17.290 Nicotine dependence, other tobacco product, uncomplicated; Z71.6 Tobacco abuse counseling; Z79.899 Other long term (current) drug therapy; Z79.891 Long term (current) use of opiate analgesic | CPT/HCPCS: 99213; 99214 ==

== ENCOUNTER → 2021-06-10 09:00 | Outpatient (BNVA) | payer MEDICARE, MEDICAID, SELFPAY | PROVIDERS: PCP Physician Assistant; Visit Provider Orthopaedic Surgery | DX: Z20.822 Contact with and (suspected) exposure to COVID-19 (principal); M51.17 Intervertebral disc disorders with radiculopathy, lumbosacral region | CPT/HCPCS: 87635 ==

== ENCOUNTER 2021-06-16 05:49 | Day surgery (SDC) | payer MEDICARE, MEDICAID, SELFPAY ==
[2021-06-05 12:20] VITALS: BMI 34.2
--- NOTE | 2021-06-05 12:58 | ANES.PREANE2 ---
Pre-Anesthetic Assessment Pre-Anesthetic Assessment: Height/Weight: Height 1.65 m Weight 93.44 kg Preop Diagnosis: lumbar stenosis Proposed Procedure: Operation Date: 06/16/21 07:00 Proposed Procedures p Lumbar Spine Decompression L5/S1 07478 M48.062(Not Applicable) - Get Powell, DO Was Beta Rina taken within 24 hours: N/A Was Clonidine taken within 24 hours: N/A Social: Social History: Tobacco Exam: Pre-Anes Outpt Exam: alert, oriented x 3, clear to auscultation bilaterally and regular rate & rhythm Airway: Submandibular: WNL Cervical ROM: WNL MP: 2 Dentition: False History/ROS: No significant complaints Pulmonary: Pulmonary: COPD Metabolic: Metabolic: DM Musc/skel: Musc/skel: Lower Back Pain and OA/DJD Neuropsych: Comments: Arnold-Chiari malformation. Chronic pain. Anesthetic Plan: ASA status: 3 Anesthesia: Anesthesia Evaluation and General Risk of > 500 ml blood loss (7ml/kg in children): No PFSH Anesthesia PFSH: Medical History (Updated 06/03/21 @ 00:01 by ) Chronic pain disorder Cigar smoker motivated to quit Encounter for long-term opiate analgesic use Facet arthropathy, lumbosacral History of DVT (deep vein thrombosis) Hx of thrombosis of lower extremity due to blood clots right leg 2017 Intervertebral disc disorder with radiculopathy of lumbosacral region Long-term use of high-risk medication Neuralgia Opioid contract exists Tobacco abuse counseling Surgical History Arnold-Chiari malformation 01/2018 [facility] Posterior fossa decompression. Complication of feeding tube 10/01/2019 Dr. Javan Mccarty. Change of gastrostomy tube. Hx of colectomy colostomy and reversal 04/1999 placement then reversed 1999 Hx of hysterectomy Hx of knee surgery 1 total knee replacement right side then additional 3 surgeries on the right knee Hx of tubal ligation Family History Mother Stroke Social History (Updated 05/30/21 @ 13:26 by Alejandra Corado LPN) Alcohol intake: never Household members: family Marital status: Current occupational status: disabled History of recent travel: No Data Anesthesia CBC & Chem 7: 06/05/21 12:31 06/05/21 12:31 Cardiac Studies: No Data to Display
[2021-06-05 12:59] LABS: Basophils % 0.5 %; Eosinophils # 0.1 10^3/uL (0.0-0.8); Eosinophils % 1.3 %; Hematocrit 45.5 % (37.0-47.0); Hemoglobin 15.1 g/dL (11.5-15.3); Lymphocytes # 2.4 10^3/uL (0.8-4.8); Lymphocytes % 28.5 %; Mean Corpuscular HGB Conc 33.2 g/dL (30.0-36.0); Mean Corpuscular Volume 93.4 fl (81-99); Mean Platelet Volume 9.4 fL (7.4-10.4); Monocytes # 0.5 10^3/uL (0.2-0.9); Monocytes % 5.8 %; Neutrophils # 5.34 10^3/uL (1.8-7.7); Neutrophils % 63.7 %; Nucleated Red Blood Cells % 0 %; Platelet Count 194 10^3/cmm (130-400); Red Blood Count 4.87 10^6/uL (4.1-5.3); Red Cell Distribution Width 12.9 % (12.1-15.1); White Blood Count 8.4 10^3/uL (4.0-10.0)
[2021-06-05 13:17] LABS: Blood Urea Nitrogen 11 mg/dL (6-20); Calcium 9.3 mg/dL (8.5-10.5); Carbon Dioxide 23 mmol/L (22-29); Chloride 102 mmol/L (98-107); Glomerular Filtration Rate 89.7 mL/min (90-130); Glucose 143 mg/dL (65-115); Osmolality Calculated 286 mOsm/kg (285-295); Sodium 137 mmol/L (136-145)
[2021-06-05 13:25] LABS: Anion Gap 16.3 (5-19); Potassium 4.3 mmol/L (3.5-5.1)
[2021-06-16] VITALS (8 sets, daily range): BP systolic 128–151; BP diastolic 75–83; PULSE 80–103; RESP 16–18; TEMP 36.2–36.8; O2SAT 96–100
--- NOTE | 2021-06-16 | SCC_ITS ---
Procedure Done: Right L5/ S1 laminectomy with partial facetectomy 7.5 seconds of fluoroscopic guidance, for a cumulative dose of 3.86 mGy, was provided to Dr. Powell by the radiology department. C-arm images of the lumbar spine were saved for the patient's permanent record. ALE
--- NOTE | 2021-06-16 | XR_ITS ---
WS: [id number] C-ARM RADIOGRAPHS LUMBAR SPINE; 3 IMAGES HISTORY: lumbar spine decompression COMPARISON: 12/02/2020 Intraoperative imaging during spine decompression. Hardware is noted overlying the L5-S1 disc level. Aortoiliac bypass stent noted. XR/XR lumbar spine 1V [id number] IMPRESSION: Intraoperative imaging during decompression surgery at the L5-S1 level.
[2021-06-16 06:17] LABS: Glucose Point of Care 162 mg/dL (70-110)
[2021-06-16] MEDS: sodium chloride 0.9% 1,000 ML 30 ML IV (06:19)
--- NOTE | 2021-06-16 06:35 | P.ANESASSM_ITS ---
Pre-Anesthetic Assessment Pre-Anesthetic Assessment: Height/Weight: Height 1.65 m Weight 93.44 kg Temp Pulse Resp BP Pulse Ox 97.4 F L 83 18 128/83 96 06/16/21 06:03 06/16/21 06:03 06/16/21 06:03 06/16/21 06:03 06/16/21 06:03 Preop Diagnosis: Lumbar stenosis L5-S1 Proposed Procedure: Operation Date: 06/16/21 07:00 Proposed Procedures p Lumbar Spine Decompression L5/S1 87711 M48.062(Not Applicable) - Get Powell DO Familial anesthetic complications: none Was Beta Rina taken within 24 hours: N/A Was Clonidine taken within 24 hours: N/A Last intake: Intake Last Liquid Date 06/15/21 Last Liquid Time 22:00 Last Solid Date 06/15/21 Last Solid Time 18:00 Social: Social History: Tobacco and No alcohol Exam: Pre-Anes Outpt Exam: alert, oriented x 3, clear to auscultation bilaterally and regular rate & rhythm Airway: Cervical ROM: WNL MP: 3 Dentition: False GI: Comments: hx colectomy w/ feeding tube - currently removed Metabolic: Metabolic: DM and Hyperlipidemia Neuropsych: Comments: arnold chiari malformation s/p decompresesion in 2018- some residual mild headache Anesthetic Plan: ASA status: 3 Anesthesia: General Risk of > 500 ml bl ood loss (7ml/kg in children): No Meds/Allergies Current Medications: Current Medications Generic Name Dose Route Start Last Admin Trade Name Freq PRN Reason Stop Dose Admin Sodium Chloride 1,000 mls @ 30 ml s/hr 06/16/21 06:15 06/16/21 06:19 Sodium Chloride 0.9% IV 06/17/21 06:14 30 mls/hr .Q24H LOUIS Administration PFSH Anesthesia PFSH: Medical History (Updated 06/03/21 @ 00:01 by ) Chronic pain disorder Cigar smoker motivated to quit Encounter for long-term opiate analgesic use Facet arthropathy, lumbosacral History of DVT (deep vein thrombosis) Hx of thrombosis of lower extremity due to blood clots right leg 2017 Intervertebral disc disorder with radiculopathy of lumbosacral region Long-term use of high-risk medication Neuralgia Opioid contract exists Tobacco abuse counseling Surgical History Arnold-Chiari malformation 01/2018 [facility] Posterior fossa decompression. Complication of feeding tube 10/01/2019 Dr. Javan Mccarty. Change of gastrostomy tube. Hx of colectomy colostomy and reversal 04/1999 placement then reversed 1999 Hx of hysterectomy Hx of knee surgery 1 total knee replacement right side then additional 3 surgeries on the right knee Hx of tubal ligation Family History Mother Stroke Social History (Updated 05/30/21 @ 13:26 by Alejandra Corado LPN) Alcohol intake: never Household members: family Marital status: Current occupational status: disabled History of recent travel: No Data Anesthesia CBC & Chem 7: 06/05/21 12:31 06/05/21 12:31 Other Labs: Laboratory Results - last 48 hr 06/16/21 06:14 POC Glucose 162 H Cardiac Studies: No Data to Display
--- NOTE | 2021-06-16 06:45 | PM.HP ---
Providers/Chief Complaint Primary Care Provider: Mis Womack Chief Complaint: lumbar spine decompression History of Present Illness Nhi Alonso is a 45 year old female She is 6 months post operative. She continues to have to complain of posterior leg pain that she did not have prior to her surgery that causes weakness. She also complains of muscle cramps to bilateral lower extremities. Edema to her bilateral lower extremity is significantly decreased since her last visit. Review of Systems Narrative: General ROS: negative for weight changes, fever ENT ROS: negative for nasal congestion, drainage or bleeding, sore throat, dysphagia or ear pain Eyes: PERRL Hematological and Lymphatic ROS: negative for swollen glands or abnormal bleeding Endocrine ROS: negative for polyuria/polydpsia or new changes in weight Respiratory ROS: negative for cough, shortness of breath, or wheezing Cardiovascular ROS: negative for chest pain or dyspnea on exertion Gastrointestinal ROS: negative for reflux, abdominal pain, change in bowel habits, or black or bloody stools Musculoskeletal ROS: negative for back pain, neck pain, or joint pain or swelling except for current problem Neurological ROS: negative for TIA or stoke symptoms Skin: no rashes Medications/Allergies Home Medications Medication Instructions Recorded Confirmed Last Taken Type atorvastatin 40 mg PO BEDTIME 12/04/20 06/16/21 06/15/21 History ergocalciferol (vitamin D2) 50,000 unit PO Q7D 12/04/20 06/16/21 06/15/21 History [Vitamin D2] warfarin 5 mg PO BEDTIME 12/04/20 06/16/21 06/12/21 History gabapentin 300 mg capsule 300 mg PO BID cap 04/15/21 06/16/21 06/15/21 History sitagliptin 50 mg-metformin 1,000 1 tab PO BID 04/15/21 06/16/21 06/12/21 History mg tablet diclofenac sodium [Voltaren 4 g TOPICAL QID #100 g 05/26/21 06/16/21 Unknown Rx Arthritis Pain] magnesium 500 mg PO BEDTIME 05/26/21 06/16/21 06/15/21 History melatonin 10 mg PO BEDTIME PRN 05/26/21 06/16/21 06/15/21 History ondansetron HCl [Zofran] 4 mg PO TID PRN 05/26/21 06/16/21 06/12/21 History hydrocodone 10 mg-acetaminophen 1 tab PO .5 times a day 30 Days 05/30/21 06/16/21 06/15/21 Rx 325 mg tablet #150 tab Allergies Allergy/AdvReac Type Severity Reaction Status Date / Time No Known Allergies Allergy Verified 06/05/21 12:12 PFSH Acute PFSH: Medical History (Updated 06/16/21 @ 06:46 by Get Powell, DO) Chronic pain disorder Cigar smoker motivated to quit Encounter for long-term opiate analgesic use Facet arthropathy, lumbosacral History of DVT (deep vein thrombosis) Hx of thrombosis of lower extremity due to blood clots right leg 2017 Intervertebral disc disorder with radiculopathy of lumbosacral region Long-term use of high-risk medication Neuralgia Opioid contract exists Tobacco abuse counseling Surgical History Arnold-Chiari malformation 01/2018 [facility] Posterior fossa decompression. Complication of feeding tube 10/01/2019 Dr. Javan Mccarty. Change of gastrostomy tube. Hx of colectomy colostomy and reversal 04/1999 placement then reversed 1999 Hx of hysterectomy Hx of knee surgery 1 total knee replacement right side then additional 3 surgeries on the right knee Hx of tubal ligation Family History Mother Stroke Social History (Updated 05/30/21 @ 13:26 by Alejandra Corado LPN) Alcohol intake: never Household members: family Marital status: Current occupational status: disabled History of recent travel: No Vitals/I&O/Wt Last Vital Signs Temp 97.4 F L 06/16/21 06:03 Pulse 83 06/16/21 06:03 Resp 18 06/16/21 06:03 BP 128/83 06/16/21 06:03 Pulse Ox 96 06/16/21 06:03 Physical Exam Narrative: EXAM NARRATIVE: CONSTITUTIONAL: The patient is a normal appearing [] in no apparent distress. GENERAL: Patient in no acute distress. CARDIAC: Regular rate and rhythm. CHEST: Normal inspiratory effort, normal respiratory rate. ABDOMEN: Soft and nontender. SKIN: Clear, warm and intact. NEURO?PSYCH: The patient is alert and oriented to person, place and time. Sensorv /SILT Motor StrengthShoulder abduction C5 5/5Wrist extension C6 5/5Elbow extension C7 5/5Hand External Relations Director C8 5/5Finger abduction T15/5 Radial/ Ulnar/ Median n intact LowerSensory (SILT)Motor StrengthHin flexion L2/3Ant/inner thigh 5/5Hip adduction L2/3 5/5Knee extension L4 Lat thigh, 5/5Toe dorsiflexion L5 5/5Ankle dorsiflexion L5/ D60Jnwiujd flexion S1 5/5 DTRBleeps 2+Triceps 2+Brachioradialis 2+Patellar 2+Achilles 2+ MUSCULOSKELETAL: [] UPPEREXTREMITIES: The patient had full active ROM in fingers, wrist, elbow, and shoulder. The patient demonstrated ability to fully flex/extend/abduct/adduct fingers, make ok sign, cross 2nd/3rd digits, extend 1st digit fully.. Radial pulse 2+, CR<2 seconds. LOWER EXTREMITIES: Pt has full, active ROM of toes, ankle, knee, and hip. Dorsalis pedis/posterior tibialis pulses 2+, CR<2 seconds. SPINE: Skin warm, dry, intact. Data : 06/05/21 12:31 06/05/21 12:31 A&P Assessment and plan (1) Lumbar stenosis with neurogenic claudication: Right L5/ S1 MIS decompression Status: Acute Attestations Medical Necessity Statement*: failed conservative tx Coding Level of Care Code Acute Manager Nursing for Chg Fwd Diagnoses Lumbar stenosis with neurogenic claudication M48.062
--- NOTE | 2021-06-16 06:47 | W.PM.OPSUD ---
Surgery/Procedure H&P Update DATE OF PROCEDURE: June 16, 2021 DATE H&P PERFORMED: 06/16/21 PREOP DIAGNOSIS: Lumbar stenosis L5-S1 PLANNED PROCEDURE: Operation Date: 06/16/21 07:00 Proposed Procedures p Lumbar Spine Decompression L5/S1 41949 M48.062(Not Applicable) - Get Powell DO
[2021-06-16 06:54] LABS: INR 0.97 (0.8-1.2)
[2021-06-16] MEDS: fentaNYL 50 mcg/mL INJ 2mL IVP (07:56)
--- NOTE | 2021-06-16 07:59 | P.OP_ITS ---
Operative Report Date of procedure: June 16, 2021 Pre-op Diagnosis: Lumbar stenosis L5-S1 Post-op diagnosis: same Procedure Done: Right L5/ S1 laminectomy with partial facetectomy Vegetable Specker: Ramos Villafana Vegetable Specker: The neurosurgical nurse practitioner, ALEAH Claire was needed for his expertise under the microscope. He was important and necessary throughout the procedure to complete in a safe and timely manner. He assisted with patient positioning prepping and draping tissue retraction suctioning of the operative field protection of the dural sac and tissue closure Anesthesia: General Estimated blood loss (mL): 5 Condition: stable Disposition: PACU Procedure: Right L5/ S1 laminectomy with partial facetectomy Patient is brought to the operative suite. After undergoing anesthesia they are placed in the prone position. All areas of impingement are well padded. Patient is then prepped and draped in the normal sterile fashion. A skin incision is made over the L5/S1 level. This is confirmed under c-arm guidance. A series of dilators are passed and the tubular retractor is docked on the L5 lamina. A bovie is used to clear the soft tissue off the lamina and the L 5/S1 facet joint. A high speed faiza is then used to perform the laminectomy and take down the medial aspect of the L 5/S1 facet joint. A kerrison rongeure was then used to take down the remaining lamina and smooth the edge of the laminectomy up to the point where the ligamentum flavum attaches. Attention was then brought to the medial aspect of the facet joint. The remaining medial aspect of the superior and inferior aspect of the facet joint were taken down with the kerrison from the pedicle of L5 to S1. The facet joint had significant hypertrophy. Attention was then brought to the Ligamentum Flavum. The ligament was taken down from the lamina of L5 to S1 and out medially to the remaining facet joint. The ligament was thick. The dura was then exposed. The dura was in good repair. The L5 nerve was then traced with a curette out the L5/S1 foramen and found to be adequately decompressed. The S1 nerve was traced with a curette around the S1 pedicle. The lateral recess was opened with a kerrison helping to further decompress the S1 nerve. Wound is then irrigated copiously with saline and surgiflo is used to stop any bleeding. The tubular retractor is removed and the wound is closed with vicryl and monocryl suture. Glue is then used to protect the wound. A sterile dressing is then placed. Patient was then placed in the supine position and transferred to the PACU in stable condition.
[2021-06-16] MEDS: HYDROcodone-acetaminophen 5-325 mg Tablet 1 TAB PO (08:30)
--- NOTE | 2021-06-16 13:46 | ANE.PACU2 ---
Inpatient post-anesthesia follow up: Airway intact: Yes Vital signs: Temperature 98.3 F Pulse Rate 80 Respiratory Rate 17 Blood Pressure 148/77 Pulse Oximetry 96 Oxygen Delivery Me thod Room Air Oxygen Flow Rate 8 Fraction of Inspir ed Oxygen Hydration adequate: Yes Nausea and vomiting: No Pain level: 2 Mental status: Baseline
== END 2021-06-16 08:45 | disposition home or self-care (01) ==
PROVIDERS: Anesthesiology; PCP Physician Assistant; Visit Provider Orthopaedic Surgery
PROC: (CPT 63005; principal; 2021-06-16 07:00)
DX: M48.062 Spinal stenosis, lumbar region with neurogenic claudication (principal); R25.2 Cramp and spasm; G89.29 Other chronic pain; F17.290 Nicotine dependence, other tobacco product, uncomplicated; Z86.718 Personal history of other venous thrombosis and embolism; F17.210 Nicotine dependence, cigarettes, uncomplicated; Z79.01 Long term (current) use of anticoagulants
CPT/HCPCS: 63047; 36416; 72020; 76000; 80048; 82962; 85025; 85610; J0690; J1100; J2405; J2704; J3010; J3490; J7030

== ENCOUNTER → 2021-07-29 10:01 | Outpatient (BNVA) | payer MEDICARE, MEDICAID, SELFPAY | PROVIDERS: PCP Physician Assistant; Visit Provider Anesthesiology | DX: M51.17 Intervertebral disc disorders with radiculopathy, lumbosacral region (principal); M48.062 Spinal stenosis, lumbar region with neurogenic claudication; F17.200 Nicotine dependence, unspecified, uncomplicated; Z79.899 Other long term (current) drug therapy; Z79.891 Long term (current) use of opiate analgesic; Z71.6 Tobacco abuse counseling | CPT/HCPCS: 99214 ==

== ENCOUNTER 2021-10-22 14:42 | Outpatient (CLI) | payer MEDICARE, MEDICAID, SELFPAY ==
--- NOTE | 2021-10-22 15:15 | MR_ITS ---
WS: [id number] MRI CERVICAL SPINE NONCONTRAST TECHNIQUE: Sagittal T1, T2 and STIR imaging. Axial T2, gradient, and fiesta imaging. CLINICAL INFORMATION: Q07.00 - Arnold-Chiari syndrome without spina bifida or h... COMPARISON: None. FINDINGS: Straightening of the normal cervical lordosis. Persistent low-lying cerebellar tonsils extending to t he C1-C2 level with mild crowding at the foramen magnum. Brain stem signal appears normal. Normal 4th ventricle. No syrinx within the cervical cord. No high-grade central canal stenosis. Cervical cord signal is normal. Minimal disc bulging C5-C6. Rep orted prior postoperative changes occipital craniectomy for Chiari decompression. C2-C3: Normal. C3-C4: Normal. C4-C5: No significant disc bulging. Mild facet arthropathy. Spinal canal and foramen are patent. C5-C6: Tiny shallow RIGHT pericentral protrusion. Slight effacement of ventral thecal sac. Mild facet arthropathy. Mild LEFT foraminal narrowing. C6-C7: No significant disc bulging. Spinal canal and foramen are patent. Mild facet arthropathy. C7-T1: Normal. MR/MR cervical spin wo con* [id number] IMPRESSION: 1. Straightening with slight reversal of the normal cervical lordosis. 2. Prior postoperative changes occipital craniectomy for Chiari decompression. Persistent low-lying cerebellar tonsils extending to the C1-C2 articulation. N ormal 4th ventricle. Mild crowding at the foramen magnum. Brainstem signal appe ars normal. Intracranial contents could be further evaluated with MRI head. 3. No syrinx in the cervical cord. 4. Tiny RIGHT pericentral protrusion C5-C6 with slight contact of the cervical cord. 5. Mild LEFT C5-C6 bony foraminal narrowing. 6. Mild facet arthropathy C4-C5 and C5-C6.
--- NOTE | 2021-10-22 16:00 | MR_ITS ---
WS: [id number] MRI LUMBAR SPINE WITH CONTRAST TECHNIQUE: Sagittal T1, T2 and STIR imaging. Axial T1 and T2 imaging. Post gadolinium imaging was obt ained. CLINICAL INFORMATION: M48.062 - Spinal stenosis, lumbar region with neurogenic ... COMPARISON: MRI 03/17/2021 and 04/22/2020 FINDINGS: Mild lumbar curve. No acute compression. No high-grade central canal stenosis. Prior RIGHT hemilamine ctomy L4-L5. Mild residual narrowing of the subarticular recess bilaterally. Central canal stenosis i mproved compared to April 22, 2020 and unchanged from March 17, 2021. No new disc protrusions. L1-L2: Normal. L2-L3: No significant disc bulging. Spinal canal and foramen are patent. L3-L4: Mild annular bulging. Slight impingement traversing RIGHT L4 nerve root in the subarticular re cess. Mild RIGHT L3-L4 foraminal narrowing. Mild facet arthropathy. This appears progressed compared to previous. L4-L5: Prior postoperative changes RIGHT hemilaminectomy. Mild residual central canal stenosis with s light narrowing of the subarticular recess bilaterally. No new disc protrusions. Mild facet arthropat hy. Foramen are patent. L5-S1: Broad-based central disc bulging with slight impingement traversing S1 nerve roots bilaterally . Recommend correlation for LEFT S1 nerve root symptoms. Mild facet arthropathy. Foramen are patent. This is unchanged from previous. Visualized pelvic bony structures: Normal. Paravertebral soft tissues: Normal. Mild ventral compression of the thoracic cord at T5 level. This can be further evaluated with thoraci c spine MRI without and with gadolinium if thoracic spine symptoms. Chiari I malformation partially visualized on the tool engineer imaging. MR/MR lumbar spine wo/w con [id number] IMPRESSION: 1. Prior postoperative changes RIGHT L4-L5 hemilaminectomy. No new disc protru sions. Mild residual narrowing subarticular recess bilaterally is unchanged. 2. Broad-based central disc bulging L5-S1 impinges the traversing LEFT greater than RIGHT S1 nerve roots. This is unchanged from previous. 3. Mild annular bulging L3-L4 with slight impingement on the RIGHT subarticula r recess and traversing RIGHT L4 nerve root appears more prominent compared to previous. Mild RIGHT L3-L4 foraminal narrowing. 4. Focal ventral displacement of the thoracic cord at the T5 level is unchange d from previous. This can be further evaluated with thoracic spine MRI without and with gadolinium 5. Stable Chiari 1 malformation partially visualized on the tool engineer imaging.
[2021-10-22] MEDS: gadobenate dimeglumine 20 mL vial IV (17:57)
== END 2021-10-22 14:43 | disposition home or self-care (01) ==
LOC: RAD 14:45
PROVIDERS: PCP Physician Assistant; Visit Provider Orthopaedic Surgery
DX: Q07.00 Arnold-Chiari syndrome without spina bifida or hydrocephalus (principal); M48.062 Spinal stenosis, lumbar region with neurogenic claudication; M96.1 Postlaminectomy syndrome, not elsewhere classified; M51.27 Other intervertebral disc displacement, lumbosacral region; M47.812 Spondylosis without myelopathy or radiculopathy, cervical region; M50.222 Other cervical disc displacement at C5-C6 level
CPT/HCPCS: 72141; 72158

== ENCOUNTER 2021-12-10 12:50 | Outpatient (CLI) | payer MEDICARE, MEDICAID, SELFPAY ==
--- NOTE | 2021-12-10 13:08 | MM_ITS ---
WS: [id number] BILATERAL 3D TOMOSYNTHESIS DIGITAL SCREENING MAMMOGRAPHY WITH CAD CLINICAL INFORMATION: SCREENING HISTORY: Screening mammogram. No current complaints. COMPARISON: September 14, 2019 TECHNIQUE: Bilateral CC and MLO views. FINDINGS: Scattered fibroglandular densities bilaterally. Incidental punctate calcifications. No suspicious foc al mass, asymmetry, calcifications, or architectural distortion. No evidence of malignancy. MM/[place] [id number] IMPRESSION: BI-RADS: 2-Benign FOLLOW UP: 1 Year Follow-up Recommend return to annual screening mammography.
== END 2021-12-10 12:51 | disposition home or self-care (01) ==
LOC: RADSHAW 12:55
PROVIDERS: PCP Physician Assistant; Visit Provider Physician Assistant
DX: Z12.31 Encounter for screening mammogram for malignant neoplasm of breast (principal)
CPT/HCPCS: 77063; 77067

== ENCOUNTER 2022-05-01 16:53 | Observation (INO) | payer MEDICARE, MEDICAID, SELFPAY ==
[2022-05-01 16:54] VITALS: BP 145/55; PULSE 111; RESP 20; TEMP 36.8; O2SAT 97; BMI 32.3
--- NOTE | 2022-05-01 16:54 | ED_ITS ---
HPI - Altered Mental Status General: Chief Complaint: Altered Mental Status Stated Complaint: AMS Time Seen by Provider: 05/01/22 16:54 History of Present Illness: Ms. Alonso is a 46-year-old lady with complex past medical history presents to the emergency department due to seizure-like event. She has been at her baseline health, laid down for nap. Suddenly family heard a bang and found the patient on the ground twitching. The patient does not recall any of these events including waking up or try to get out of bed. Denies history of similar. Mild generalized malaise. No other specific changes in health, exacerbating, or alleviating factors identified. Onset (ago): minute(s) Review of Systems General: Reports: 10 or more systems reviewed and unremarkable except in HPI and below PFSH ED PFSH: Medical History Chronic pain disorder Cigar smoker motivated to quit Dyslipidemia Encounter for long-term opiate analgesic use Facet arthropathy, lumbosacral History of DVT (deep vein thrombosis) Hx of thrombosis of lower extremity due to blood clots right leg 2017 Intervertebral disc disorder with radiculopathy of lumbosacral region Long-term use of high-risk medication Lumbar stenosis with neurogenic claudication Neuralgia Opioid contract exists T2DM (type 2 diabetes mellitus) Tobacco abuse counseling Surgical History Arnold-Chiari malformation 01/2018 [facility] Posterior fossa decompression. Complication of feeding tube 10/01/2019 Dr. Javan Mccarty. Change of gastrostomy tube. History of abdominal surgery 2x History of oophorectomy History of tonsillectomy and adenoidectomy Hx of colectomy colostomy and reversal 04/1999 placement then reversed 1999 Hx of hysterectomy Hx of knee surgery 1 total knee replacement right side then additional 3 surgeries on the right knee Hx of tubal ligation Family History Mother Stroke Social History Smoking and tobacco status: former smoker Alcohol intake: never Household members: family Marital status: Current occupational status: disabled History of recent travel: No Physical Exam Const: COMMON NORMALS: alert GENERAL APPEARANCE: cooperative and well developed HENMT: COMMON NORMALS: normocephalic and atraumatic HEAD & SCALP: normocephalic and atraumatic Eye: COMMON NORMALS: conjunctivae normal CONJUNCTIVA: Yes conjunctivae normal SCLERA: sclerae normal Neck/C-Spine: COMMON NORMALS: supple GENERAL: Yes trachea midline Resp: COMMON NORMALS: clear to auscultation bilaterally EFFORT & INSPECTION: Yes able to speak in complete sentences AUSCULTATION: clear to auscultation bilaterally Cardio: COMMON NORMALS: regular rate and regular rhythm RATE: regular rate RHYTHM: regular rhythm GI: COMMON NORMALS: Soft to palpation PALPATION: Yes Soft to palpation and No Tenderness to palpation present (GI) PERCUSSION: normal to percussion Extremity: GENERAL: Yes normal exam except as noted and No edema Neuro: COMMON NORMALS: moves all extremities SENSORIUM/ORIENTATION: Yes alert and No Orientation impaired Psych: COMMON NORMALS: mental status grossly normal and Normal thought process present THOUGHT PROCESS: Normal thought process present Skin: NARRATIVE SKIN EXAM: Scattered abrasions and contusions Course Vital Signs: Vital signs: Vital Signs Temperature 98.3 F 05/03/22 13:13 Pulse Rate 67 05/03/22 13:13 Respiratory Rate 16 05/03/22 13:13 Blood Pressure 128/70 05/03/22 13:13 Pulse Oximetry 96 05/03/22 13:13 Oxygen Delivery Me thod 05/03/22 12:00 MDM - Altered Mental Status Medical Decision Making 46-year-old lady presenting with possible seizure versus other abnormal neurologic event. EKG shows sinus rhythm with no STEMI. No focal neurologic deficits appreciated on clinical exam. Labs notable for mild hemoconcentration and leukocytosis. Some evidence of metabolic stress on metabolic panel. Delta troponin is positive. Chest x-ray with no lobar consolidation or pneumothorax. CT head without acute intracranial pathology, redemonstration of Chiari I with suboccipital decompression previously. Patient is admitted for further management given possibility of arrhythmia/cardiac arrest preceding event versus other etiology. Medical Records I reviewed the patient's medical records. Lab Data I reviewed the patient's lab results. : 05/02/22 02:04 05/03/22 02:29 Radiology Impressions Chest X-Ray 05/01/22 17:12 IMPRESSION: No acute findings. Head CT 05/01/22 19:26 IMPRESSION: 1. No acute intracranial abnormality. 2. Redemonstrated Chiari 1 malformation with suboccipital decompression changes. Chest CTA 05/01/22 20:25 IMPRESSION: 1. Pulmonary arteries appear unremarkable. No evidence of pulmonary embolism. 2. No evidence of thoracic aortic aneurysm or dissection. 3. Changes of centrilobular emphysema demonstrated. Mild atelectasis versus fibrosis at the lung bases. No consolidative pulmonary infiltrates. 4. Calcified subcarinal and right hilar lymph nodes, consistent with old granulomatous disease. Venous Duplex 05/01/22 20:25 IMPRESSION: No evidence of deep vein thrombosis, bilateral lower extremities. Knee X-Ray 05/02/22 03:46 IMPRESSION: No fractures or dislocation of the right knee. Mild anterior knee region soft tissue swelling. Degenerative changes, as noted above. Laboratory Results WBC 11.3 10^3/uL (4.0-10.0) H 05/01/22 17:14 RBC 4.90 10^6/uL (4.1-5.3) 05/01/22 17:14 Hgb 15.7 g/dL (11.5-15.3) H 05/01/22 17:14 Hct 48.2 % (37.0-47.0) H 05/01/22 17:14 MCV 98.4 fl (81-99) 05/01/22 17:14 MCH 32.0 pg (28.0-34.0) 05/01/22 17:14 MCHC 32.6 g/dL (30.0-36.0) 05/01/22 17:14 RDW 12.3 % (12.1-15.1) 05/01/22 17:14 Plt Count 208 10^3/cmm (130-400) 05/01/22 17:14 MPV 9.7 fL (7.4-10.4) 05/01/22 17:14 Neut % (Auto) 64.7 % 05/01/22 17:14 Lymph % (Auto) 27.8 % 05/01/22 17:14 [place] % (Auto) 5.9 % 05/01/22 17:14 Eos % (Auto) 0.9 % 05/01/22 17:14 Baso % (Auto) 0.4 % 05/01/22 17:14 Neut # (Auto) 7.32 10^3/uL (1.8-7.7) 05/01/22 17:14 Lymph # (Auto) 3.1 10^3/uL (0.8-4.8) 05/01/22 17:14 [place] # (Auto) 0.7 10^3/uL (0.2-0.9) 05/01/22 17:14 Eos # (Auto) 0.1 10^3/uL (0.0-0.8) 05/01/22 17:14 Baso # (Auto) 0.1 10^3/uL (0.0-0.1) 05/01/22 17:14 Nucleated RBC % (auto) 0 % 05/01/22 17:14 Nucleated RBCs # 0.0 /100WBC 05/01/22 17:14 ESR 24 mm/hr (0-15) H 05/01/22 17:14 PT 13.90 SECONDS (12.1-14.9) 05/01/22 17:14 INR 1.03 (0.8-1.2) 05/01/22 17:14 APTT 27.5 SECONDS (23.9-36.7) 05/01/22 17:14 D-Dimer 0.78 ug/mIFEU (0-0.59) H 05/01/22 17:14 Sodium 138 mmol/L (136-145) 05/01/22 17:14 Potassium 4.1 mmol/L (3.5-5.1) 05/01/22 17:14 Chloride 104 mmol/L (98-107) 05/01/22 17:14 Carbon Dioxide 16 mmol/L (22-29) L 05/01/22 17:14 Anion Gap 22.1 (5-19) H 05/01/22 17:14 BUN 15 mg/dL (6-20) 05/01/22 17:14 Creatinine 0.8 mg/dL (0.5-0.9) 05/01/22 17:14 GFR Calculation 76.6 mL/min (90-130) L 05/01/22 17:14 Glucose 174 mg/dL (65-115) H 05/01/22 17:14 Calculated Osmolality 291 mOsm/kg (285-295) 05/01/22 17:14 Lactate 7.2 mmol/L (0.5-2.2) H* 05/01/22 17:14 Calcium 9.4 mg/dL (8.5-10.5) 05/01/22 17:14 Magnesium 1.9 mg/dL (1.7-2.3) 05/01/22 17:14 Total Bilirubin 0.2 mg/dL (0.15-1.2) 05/01/22 17:14 AST 23 U/L (0-32) 05/01/22 17:14 ALT 17 U/L (0-33) 05/01/22 17:14 Alkaline Phosphatase 71 U/L (35-105) 05/01/22 17:14 Troponin T Baseline 26 ng/L (0-10) H 05/01/22 17:14 Troponin T 120 Minute 160.8 ng/L (0-10) H 05/01/22 19:00 Delta Troponin T 134.8 ABS# (0-10) H* 05/01/22 19:00 C-Reactive Protein 3.0 mg/L (0.0-4.9) 05/01/22 17:14 NT-Pro-B Natriuret Pep 93 pg/mL (0-125) 05/01/22 17:14 Total Protein 7.5 g/dL (6.6-8.7) 05/01/22 17:14 Albumin 4.5 g/dL (3.5-5.2) 05/01/22 17:14 Globulin 3.0 g/dL (1.3-4.6) 05/01/22 17:14 Procalcitonin 0.03 ng/mL (0-0.5) 05/01/22 17:14 TSH 2.31 uIU/mL (0.27-4.20) 05/01/22 19:00 Prolactin 83.00 ng/mL (4.8-23.3) H 05/01/22 17:14 Urine Color Yellow (Yellow) 05/01/22 17:40 Urine Appearance Clear (CLEAR) 05/01/22 17:40 Urine pH 5 (5-7) 05/01/22 17:40 Ur Specific [place] 1.030 (1.005-1.030) 05/01/22 17:40 Urine Protein Trace (Negative) H 05/01/22 17:40 Urine Glucose (UA) Norm (Normal) 05/01/22 17:40 Urine Ketones 1+ (Negative) H 05/01/22 17:40 Urine Blood 2+ (Negative) H 05/01/22 17:40 Urine Nitrate Negative (Negative) 05/01/22 17:40 Urine Bilirubin Neg (Negative) 05/01/22 17:40 Urine Urobilinogen Neg mg/dL (Negative) 05/01/22 17:40 Ur Leukocyte Esterase Negative (Negative) 05/01/22 17:40 Urine RBC 0-4 /hpf (0-2) H 05/01/22 17:40 Urine WBC None /hpf (0-5) 05/01/22 17:40 Ur Squamous Epith Cells 5-10 /hpf (0-5) H 05/01/22 17:40 Amorphous Sediment Not Reportable 05/01/22 17:40 Urine Bacteria 1+ /hpf (NONE) H 05/01/22 17:40 Urine Mucus 1+ /hpf 05/01/22 17:40 Urine Opiates Screen Positive ng/mL (Negative) H 05/01/22 17:40 Ur Barbiturates Screen Negative ng/mL (Negative) 05/01/22 17:40 Ur Phencyclidine Scrn Negative ng/mL (Negative) 05/01/22 17:40 Ur Amphetamines Screen Negative ng/mL (Negative) 05/01/22 17:40 U Benzodiazepines Scrn Negative ng/mL (Negative) 05/01/22 17:40 Urine Cocaine Screen Negative ng/mL (Negative) 05/01/22 17:40 U Marijuana (THC) Screen Negative ng/mL (Negative) 05/01/22 17:40 Critical Care Time Critical Care Time: Critical Care Time: Yes Total Critical Care Time: 35 Attestation: Due to a high probability of clinically significant, possibly life threatening deterioration, the patient required my highest level of attention and preparedness to intervene emergently and I personally spent this critical care time directly and personally managing the patient. This critical care time included obtaining a history; examining the patient; pulse oximetry; ordering and review of laboratory and imaging studies; arranging urgent treatment with development of a management plan; evaluation of patient's response to treatment; frequent reassessment; and, discussions with other providers as applicable. It was exclusive of separately billable procedures. Discharge Plan Discharge Patient Disposition: Placed in Observation Admit Provider: Taqueria Mcgee Clinical Impression: Acute non-ST elevation myocardial infarction (NSTEMI), Seizure-like activity Discharge Diet: Cardiac Discharge Activity: Resume usual activity and Increase activity as tolerated Coding Level of Care Code ED Adding Machine Servicer for Evelyneg Fwd Exam Comprehensive
--- NOTE | 2022-05-01 17:12 | XRR_ITS ---
PROCEDURE INFORMATION: Exam: XR Chest Exam date and time: 05/01/2022 5:17 PM Age: 46 years old Clinical indication: Injury or trauma; Fall; Other: AMS; Sprain or strain TECHNIQUE: Imaging protocol: Radiologic exam of the chest. Views: 1 view. COMPARISON: CR XR chest 2V* [id number] 03/29/2017 8:48 AM FINDINGS: Lungs: Unremarkable. No consolidation. Pleural spaces: Unremarkable. No pleural effusion. No pneumothorax. Heart/Mediastinum: Unremarkable. No cardiomegaly. Bones/joints: Unremarkable. XR/XR chest 1V portable [id number] IMPRESSION: No acute findings.
[2022-05-01 17:14] VITALS: BP 119/80; PULSE 110; RESP 20; O2SAT 98
--- NOTE | 2022-05-01 17:26 | ECG_ITS ---
[facility] Test Date: 2022-05-01 Pat Name: Nhi Alonso Department: Room: Gender: Female Inventory Technician: : 1975 Requested By: Edmar Gilliam Order Number: [id number] Alfonso MD: Nidia Dunham M.D. Measurements Intervals [place] Rate: 108 P: 51 RI: 137 QRS: 65 QRSD: 90 T: 60 QT: 331 QTc: 445 Interpretive Statements SINUS TACHYCARDIA Compared to ECG 12/02/2020 13:59:18 Sinus rhythm no longer present Electronically Signed On 05-02-2022 11:09:27 CDT by Nidia Dunham M.D. [id number]
[2022-05-01 17:32] LABS: Basophils # 0.1 10^3/uL (0.0-0.1); Basophils % 0.4 %; Eosinophils # 0.1 10^3/uL (0.0-0.8); Eosinophils % 0.9 %; Hematocrit 48.2 % (37.0-47.0); Hemoglobin 15.7 g/dL (11.5-15.3); Lymphocytes # 3.1 10^3/uL (0.8-4.8); Lymphocytes % 27.8 %; Mean Corpuscular HGB Conc 32.6 g/dL (30.0-36.0); Mean Corpuscular Volume 98.4 fl (81-99); Mean Platelet Volume 9.7 fL (7.4-10.4); Monocytes # 0.7 10^3/uL (0.2-0.9); Monocytes % 5.9 %; Neutrophils # 7.32 10^3/uL (1.8-7.7); Neutrophils % 64.7 %; Nucleated Red Blood Cells % 0 %; Platelet Count 208 10^3/cmm (130-400); Red Cell Distribution Width 12.3 % (12.1-15.1); White Blood Count 11.3 10^3/uL (4.0-10.0)
[2022-05-01 17:45] LABS: INR 1.03 (0.8-1.2); Partial Thromboplastin Time 27.5 SECONDS (23.9-36.7)
[2022-05-01 17:55] LABS: Urine Appearance Clear (CLEAR); Urine Color Yellow (Yellow); pH Urine 5 (5-7)
[2022-05-01 17:56] LABS: Add Urine Microscopic? YES; Bilirubin Urine Neg (Negative); Blood Urine 2+ (Negative); Glucose Urine UA Norm (Normal); Ketones Urine 1+ (Negative); Leukocyte Esterase Urine Negative (Negative); Nitrate Urine Negative (Negative); Protein Urine Trace (Negative); Urobilinogen Urine Neg (Negative)
[2022-05-01 17:58] LABS: Lactate (Lactic Acid level) 7.2 mmol/L (0.5-2.2); Troponin(5th) Baseline 26 ng/L (0-10)
[2022-05-01 18:03] LABS: Amphetamines Screen Urine Negative (Negative); Barbiturates Screen Urine Negative (Negative); Benzodiazepines Screen Urine Negative (Negative); Cocaine Screen Urine Negative (Negative); Opiate Screen Urine Positive (Negative); PCP Screen Urine Negative (Negative); THC Screen Urine Negative (Negative)
[2022-05-01 18:04] LABS: RBC Urine 0-4 /hpf (0-2)
[2022-05-01 18:05] LABS: Add Urine Culture? No; Bacteria Urine 1+ /hpf; Mucus Urine 1+ /hpf
[2022-05-01] MEDS: lactated ringers 1,000 ML 999 ML IV (18:10)
[2022-05-01 18:12] LABS: NT Pro B Type Natriuretic Pept 93 pg/mL (0-125); Procalcitonin 0.03 ng/mL (0-0.5)
[2022-05-01 18:24] LABS: Acetaminophen 5.2 ug/mL (10-30); Salicylate 1.6 mg/dL (3-10)
[2022-05-01 18:26] LABS: Alanine Aminotransferase 17 U/L (0-33); Albumin Level 4.5 g/dL (3.5-5.2); Alkaline Phosphatase 71 U/L (35-105); Aspartate Amino Transferase 23 U/L (0-32); Blood Urea Nitrogen 15 mg/dL (6-20); Calcium 9.4 mg/dL (8.5-10.5); Carbon Dioxide 16 mmol/L (22-29); Chloride 104 mmol/L (98-107); Glomerular Filtration Rate 76.6 mL/min (90-130); Glucose 174 mg/dL (65-115); Magnesium 1.9 mg/dL (1.7-2.3); Osmolality Calculated 291 mOsm/kg (285-295); Sodium 138 mmol/L (136-145); Total Bilirubin 0.2 mg/dL (0.15-1.2); Total Protein 7.5 g/dL (6.6-8.7)
[2022-05-01 18:27] LABS: Anion Gap 22.1 (5-19); Potassium 4.1 mmol/L (3.5-5.1)
[2022-05-01 18:33] VITALS: BP 108/57; PULSE 92; RESP 20; O2SAT 100
--- NOTE | 2022-05-01 19:04 | PC.NURSE ---
Report given to JACKSON Webb
[2022-05-01 19:06] LABS: Thyroid Stimulating Hormone 4.37 uIU/mL (0.27-4.20)
--- NOTE | 2022-05-01 19:12 | ECG_ITS ---
[facility] Test Date: 2022-05-01 Pat Name: Nhi Alonso Department: Room: Gender: Female Data Software Engineer: : 1975 Requested By: Edmar Gilliam Order Number: [id number] Alfonso MD: Nidia Dunham M.D. Measurements Intervals [place] Rate: 80 P: 61 VT: 136 QRS: 62 QRSD: 101 T: 84 QT: 381 QTc: 442 Interpretive Statements SINUS RHYTHM Compared to ECG 05/01/2022 17:26:37 Sinus tachycardia no longer present Electronically Signed On 05-02-2022 11:16:48 CDT by Nidia Dunham M.D. [id number]
--- NOTE | 2022-05-01 19:26 | CTR_ITS ---
PROCEDURE INFORMATION: Exam: CT Head Without Contrast Exam date and time: 05/01/2022 7:35 PM Age: 46 years old Clinical indication: Altered mental status/memory loss; Confusion or disorientation; Prior surgery; Surgery date: 6+ months; Surgery type: Chiari malformation x5 yrs; Patient HX: Seizure; PT states she fell today, memory loss. PT states HX of chiari malformation with surgery x5 yrs ago TECHNIQUE: Imaging protocol: Computed tomography of the head without contrast. Radiation optimization: All CT scans at this facility use at least one of these dose optimization techniques: automated exposure control; mA and/or kV adjustment per patient size (includes targeted exams where dose is matched to clinical indication); or iterative reconstruction. COMPARISON: CT head wo con* [id number] 03/18/2017 5:48 PM RADIATION DOSE METRICS: Total DLP (mGy-cm): 1380.65 FINDINGS: Brain: No hemorrhage. No edema. No significant white matter disease. Chiari 1 malformation again noted. Cerebral ventricles: No ventriculomegaly. Paranasal sinuses: Visualized sinuses are unremarkable. No fluid levels. Mastoid air cells: Visualized mastoid air cells are well aerated. Bones/joints: Suboccipital decompression changes. No acute fracture. Soft tissues: Unremarkable. CT/CT head wo con* [id number] IMPRESSION: 1. No acute intracranial abnormality. 2. Redemonstrated Chiari 1 malformation with suboccipital decompression changes.
[2022-05-01 19:30] LABS: Troponin 5 2HR 160.8 ng/L (0-10); Troponin 5 2HR Delta 134.8 ABS# (0-10)
--- NOTE | 2022-05-01 19:42 | PC.NURSE ---
patient returned to room via wheelchair per supervisor sound technician. patient in no obvious distress.
--- NOTE | 2022-05-01 20:10 | USCV_ITS ---
Gavin Nhi Age: 46 Gender: F : 1975 Exam Date: 05/01/2022 21:49 Ordering Phys: Edmar Gilliam MD Technologist: Patricia Lindquist [place] [facility] [place]: Pain in legs and NSTEMI BP: / HR: 86 Rhythm: Sinus Technical Quality: Adequate MEASUREMENTS (Male / Female) Normal Values 2D ECHO LV Diastolic Diameter PLAX 3.1 cm 4.2 - 5.9 / 3.9 - 5.3 cm LV Systolic Diameter PLAX 3.0 cm LV Chamber Size 3.9 cm IVS Diastolic Thickness 1.3 cm 0.6 - 1.0 / 0.6 - 0.9 cm IVS Systolic Thickness 1.8 cm LVPW Diastolic Thickness 1.4 cm 0.6 - 1.0 / 0.6 - 0.9 cm LVPW Systolic Thickness 1.6 cm RV Chamber Size 3.0 cm LVOT Diameter 2.0 cm LV Ejection Fraction 2D Teich 3.2 % LV Ejection Fraction MOD 2C 28.3 % LV Ejection Fraction 2C AL 28.7 % LA Diameter 3.4 cm LA Width 2.5 cm LA Height 3.4 cm RA Width 1.8 cm RA Height 3.2 cm Aorta at Sinotubular Diameter 2.5 cm IVC Diameter 1.8 cm M-MODE Aortic Annulus Diameter 3.1 cm LA Ao Ratio MM 1.1 MV E Point Septal Separation 0.4 cm DOPPLER AV Peak Velocity 129.0 cm/s LVOT Peak Velocity 96.0 cm/s AV Area Cont Eq vti 2.7 cm squared AV Area Cont Eq pk 2.4 cm squared MV Area PHT 4.3 cm squared Mitral E to A Ratio 1.3 MV E' Velocity 47.0 cm/s Mitral E to MV E' Ratio 8.4 Mitral E to LV E' Lateral Ratio 8.0 Mitral E to LV E' Septal Ratio 8.8 TR Peak Velocity 245.1 cm/s TR Peak Gradient 24.0 mmHg TR Mean Velocity 192.5 cm/s TR Mean Gradient 16.2 mmHg TR Velocity Time Integral 67.4 cm TV Peak E Velocity 87.0 cm/s Right Atrial Pressure 8.0 mmHg Pulmonary Artery Systolic Pressu 32.0 mmHg PV Peak Velocity 12.0 cm/s RV Acceleration Time 0.1 s RV Ejection Time 0.3 s RV AcT/ET 0.4 FINDINGS Left Ventricle Normal left ventricular size and systolic function, EF 55%.no regional wall motion abnormalities. Right Ventricle Normal right ventricular size and systolic function. Right Atrium Normal right atrial size. Left Atrium Normal left atrial size. Mitral Valve No significant abnormalities noted Aortic Valve No gross abnormalities noted Tricuspid Valve Trace of tricuspid regurgitation. Estimated pulmonary artery peak systolic pressure 33 mmHg Pulmonic Valve Pulmonic valve not well visualized. Pericardium Normal pericardium without effusion. Aorta Normal aortic annulus size. IVC Normal inferior vena cava. CONCLUSIONS Normal left ventricular size and systolic function, EF 55%. No regional wall motion abnormalities. Trace of tricuspid regurgitation. Estimated pulmonary artery peak systolic pressure 33 mmHg. There is no pericardial effusion. There are no intracardiac masses. Compared to the study from 03/21/2017, there may not be significant change Dr Gaurav Ortiz MD FACC (Electronically Signed) Final Date: 02 May 2022 09:50 S
[2022-05-01 20:14] LABS: D Dimer 0.78 ug/mIFEU (0-0.59)
--- NOTE | 2022-05-01 20:25 | USR_ITS ---
PROCEDURE INFORMATION: Exam: US Duplex Lower Extremity Veins, Bilateral Exam date and time: 05/01/2022 9:28 PM Age: 46 years old Clinical indication: Leg, upper and leg, lower; Bilateral; Prior surgery; Surgery date: 6+ months; Surgery type: RT knee replaced several years ago; Patient HX: Chest pain and falling; Additional info: Dvt TECHNIQUE: Imaging protocol: Real-time Duplex ultrasound of the bilateral extremities with 2-D khan scale, color Doppler flow and spectral waveform analysis with image documentation. Complete exam focused on the bilateral lower extremity veins. COMPARISON: No relevant prior studies available. FINDINGS: Right deep veins: Unremarkable. The common femoral, femoral, proximal profunda femoral and popliteal veins are patent without thrombus. Normal Doppler waveforms. Normal compressibility and/or augmentation response. Right superficial veins: Saphenofemoral junction is patent without thrombus. Left deep veins: Unremarkable. The common femoral, femoral, proximal profunda femoral and popliteal veins are patent without thrombus. Normal Doppler waveforms. Normal compressibility and/or augmentation response. Left superficial veins: Saphenofemoral junction is patent without thrombus. Soft tissues: Unremarkable. US/[place] [id number] IMPRESSION: No evidence of deep vein thrombosis, bilateral lower extremities.
--- NOTE | 2022-05-01 20:25 | CTR_ITS ---
PROCEDURE INFORMATION: Exam: CTA Chest With Contrast Exam date and time: 05/01/2022 8:44 PM Age: 46 years old Clinical indication: Abnormal findings; Abnormal diagnostic tests; Elevated d-dimer; Shortness of breath; Patient HX: SOB with elevated d dimer. Nstemi. ; Additional info: Syncope, nstemi, dd vicki TECHNIQUE: Imaging protocol: Computed tomographic angiography of the chest with contrast. 3D rendering (Not supervised by radiologist): MIP and/or 3D reconstructed images were created by the technologist. Radiation optimization: All CT scans at this facility use at least one of these dose optimization techniques: automated exposure control; mA and/or kV adjustment per patient size (includes targeted exams where dose is matched to clinical indication); or iterative reconstruction. Contrast material: OMNI 350; Contrast volume: 75 ml; Contrast route: INTRAVENOUS (IV); COMPARISON: CT chest w con* [id number] 03/18/2017 10:44 PM RADIATION DOSE METRICS: Total DLP (mGy-cm): 447.21 FINDINGS: Pulmonary arteries: Pulmonary arteries are normal in caliber. No filling defects are demonstrated. No evidence of pulmonary embolism. Aorta: Mild atherosclerosis of the aorta. No aneurysm or dissection. Lungs: No consolidative pulmonary infiltrate noted. Mild atelectasis versus fibrosis at the lung bases. Changes of centrilobular emphysema demonstrated. Pleural spaces: No pneumothorax. No pleural effusion. Heart: No cardiomegaly. No pericardial effusion. Coronary arterial calcifications are noted. Lymph nodes: No enlarged lymph nodes. Calcified subcarinal and right hilar lymph nodes, consistent with old granulomatous disease. Bones/joints: Degenerative thoracic spine changes are noted. No acute osseous abnormality. Soft tissues: Unremarkable. CT/CT angio chest PE protcl [id number] IMPRESSION: 1. Pulmonary arteries appear unremarkable. No evidence of pulmonary embolism. 2. No evidence of thoracic aortic aneurysm or dissection. 3. Changes of centrilobular emphysema demonstrated. Mild atelectasis versus fibrosis at the lung bases. No consolidative pulmonary infiltrates. 4. Calcified subcarinal and right hilar lymph nodes, consistent with old granulomatous disease.
[2022-05-01 20:32] LABS: Erythrocyte Sedimentation Rate 24 mm/hr (0-15)
--- NOTE | 2022-05-01 20:38 | PM.HP ---
Providers/Chief Complaint Admitting Physician: Taqueria Mcgee MD Primary Care Provider: Mis Womack Chief Complaint: AMS History of Present Illness Nhi Alonso is a 46 year old female with a past medical history of Chiari malformation requiring surgical intervention, history of lumbar radiculopathy with stenosis requiring surgery, history of noninsulin-dependent type 2 diabetes mellitus, anxiety, hyperlipidemia, history of DVT on Coumadin who presents [facility] due to seizure-like episode. According to patient, she has been in a regular bill health, she denies any cardiovascular history, no history of shortness of breath, no history of chest pain, no history of seizures, history of strokes. She tells me that she was getting everything ready together for her daughter's gender reveal libertarian. She went into her bedroom at roughly 230 and that the last and that the last thing she can remember according to her daughter there was a large thud and patient was on the floor, patient said that her daughter thought she was having seizure-like episodes, unresponsive, so she called EMS, when EMS arrived, she was combative. She denies any shortness of breath, no chest pain, no nausea, no vomiting, headache, blurry vision she does have a history of DVT, on Coumadin Review of Systems Const: Denies: fever(s), chills, fatigue or malaise Eyes: Denies: change in vision Card: Reports: syncope; Denies: chest pain, palpitations or edema Resp: Denies: dyspnea or non-productive cough GI: Denies: abdominal pain, nausea or vomiting : Denies: difficulty voiding Musc: Reports: joint pain; Denies: neck pain or back pain Neuro: Reports: headache(s) Medications/Allergies Home Medications Medication Instructions Recorded Confirmed Last Taken Type atorvastatin 40 mg tablet 40 mg PO BEDTIME 12/04/20 10/30/21 06/15/21 History ergocalciferol (vitamin D2) 1,250 50,000 unit PO Q7D 12/04/20 10/30/21 06/15/21 History mcg (50,000 unit) capsule (Vitamin D2) warfarin 5 mg tablet 5 mg PO BEDTIME 12/04/20 10/30/21 06/12/21 History sitagliptin 50 mg-metformin 1,000 1 tab PO BID 04/15/21 10/30/21 06/12/21 History mg tablet (Janumet) diclofenac sodium 1 % topical gel 4 g topical QID #100 grams 05/26/21 10/30/21 Unknown Rx (Voltaren Arthritis Pain) magnesium 500 mg tablet 500 mg PO BEDTIME 05/26/21 10/30/21 06/15/21 History melatonin 10 mg tablet 10 mg PO BEDTIME PRN Sleep 05/26/21 10/30/21 06/15/21 History ondansetron HCl 4 mg tablet 4 mg PO TID PRN Nausea And Vomiting 05/26/21 10/30/21 06/12/21 History (Zofran) gabapentin 100 mg capsule 100 mg PO TID 30 days #90 caps 07/29/21 10/30/21 Unknown Rx hydrocodone 10 mg-acetaminophen 1 tab PO .5 times a day pain 30 07/29/21 10/30/21 Unknown Rx 325 mg tablet days #150 tabs hydrocodone 10 mg-acetaminophen 1 tab PO .5 times a day pain 30 08/05/21 10/30/21 Unknown Rx 325 mg tablet days #150 tabs diazepam 5 mg tablet (Valium) 5 mg PO BID PRN anxiety 1 day #2 10/14/21 10/30/21 Unknown Rx tabs Allergies Allergy/AdvReac Type Severity Reaction Status Date / Time No Known Allergies Allergy Verified 10/30/21 11:12 PFSH Acute PFSH: Medical History Chronic pain disorder Cigar smoker motivated to quit Encounter for long-term opiate analgesic use Facet arthropathy, lumbosacral History of DVT (deep vein thrombosis) Hx of thrombosis of lower extremity due to blood clots right leg 2017 Intervertebral disc disorder with radiculopathy of lumbosacral region Long-term use of high-risk medication Neuralgia Opioid contract exists Tobacco abuse counseling Surgical History Arnold-Chiari malformation 01/2018 [facility] Posterior fossa decompression. Complication of feeding tube 10/01/2019 Dr. Javan Mccarty. Change of gastrostomy tube. Hx of colectomy colostomy and reversal 04/1999 placement then reversed 1999 Hx of hysterectomy Hx of knee surgery 1 total knee replacement right side then additional 3 surgeries on the right knee Hx of tubal ligation Family History Mother Stroke Social History Smoking and tobacco status: current every day smoker cigarettes Alcohol intake: never Household members: family Marital status: Current occupational status: disabled History of recent travel: No Vitals/I&O/Wt Last Vital Signs Temp 98.3 F 05/01/22 16:54 Pulse 92 05/01/22 18:33 Resp 20 H 05/01/22 18:33 BP 108/57 05/01/22 18:33 Pulse Ox 100 05/01/22 18:33 O2 Del Method 05/01/22 18:33 Weight last 48 hrs Weight 87.997 kg Physical Exam Const: COMMON NORMALS: no acute distress and patient oriented x3 HENMT: COMMON NORMALS: normocephalic HEAD & SCALP: normocephalic Eye: COMMON NORMALS: Equal, round and reactive pupils present and EOMs intact bilaterally Neck/C-Spine: COMMON NORMALS: no JVD Resp: COMMON NORMALS: normal respiratory effort, No retractions, No use of accessory muscles and clear to auscultation bilaterally AUSCULTATION: clear to auscultation bilaterally Cardio: COMMON NORMALS: no JVD, regular rate, regular rhythm, S1 normal heart sound present and S2 normal heart sound present RATE: regular rate RHYTHM: regular rhythm HEART SOUNDS: S1 normal heart sound present and S2 normal heart sound present GI: COMMON NORMALS: Normal to inspection, nondistended, normoactive bowel sounds present, Soft to palpation, non-tender, No hepatosplenomegaly present, no masses and no bruits PALPATION: Yes Soft to palpation and Yes No hepatosplenomegaly present Extremity: COMMON NORMALS: capillary refill normal, no clubbing, cyanosis or edema, no calf tenderness and no pedal edema Neuro: COMMON NORMALS: patient oriented x3, CN's II-XII intact bilaterally, moves all extremities and no focal motor deficits Psych: COMMON NORMALS: mental status grossly normal Skin: NARRATIVE SKIN EXAM: Multiple bruises, bilateral bang Data : 05/01/22 17:14 05/01/22 17:14 Micro: Microbiology 05/01/22 18:09 Blood Culture - Preliminary Blood SPECIMEN COLLECTED 05/01/22 18:00 Blood Culture - Preliminary Blood SPECIMEN COLLECTED A&P Assessment and plan (1) Syncope and collapse: (2) Lactic acidosis: (3) Acute non-ST elevation myocardial infarction (NSTEMI): (4) Seizure-like activity: Plan Syncope and collapse -Patient's symptoms are very concerning for a cardiac event either cardiac arrest versus malignant arrhythmia -Certainly her symptoms could be seizure-like, however her troponins are elevated lactic acid are elevated, prolactin is elevated -She does have history of DVTs, she has been moving since her surgery however her INR is quite subtherapeutic certainly a pulmonary embolism could be another etiology, D-dimer is mildly elevated 0.78 Plan -First we will do a CT angiogram of her chest, if there is no evidence of pulmonary embolism she can be moved to cardiac stepdown unit -Serial EKGs serial troponins telemetry monitoring -As she has a positive delta troponin, and her 120-minute 160 we will start her on therapeutic Lovenox -She has been loaded with aspirin aspirin 81 mg, atorvastatin -Monitor telemetry closely, monitor for malignant arrhythmias -We will start her on low-dose beta-chana -Cardiac echo, venous ultrasound -Cardiology has been consulted for consideration of coronary angiogram -For now I will hold off on placing her on seizure medications -Fluid therapy -Replace magnesium -Repeat lactic acid ABG ordered -Full code -Lovenox for DVT prophylaxis Attestations Medical Necessity Statement*: Patient requires hospitalization, inpatient, greater than 2 minutes, for syncope or collapse Coding Level of Care Code Acute [facility] Manager for [facility] Fwd Diagnoses Syncope and collapse R55 Lactic acidosis E87.2 Acute non-ST elevation myocardial infarction (NSTEMI) I21.4 Seizure-like activity R56.9
[2022-05-01] MEDS: iohexol 350 mg/mL 100 mL Btl IV (20:52)
[2022-05-01 21:07] LABS: Thyroid Stimulating Hormone 2.31 uIU/mL (0.27-4.20)
[2022-05-01] MEDS: aspirin 81 mg Chew Tablet 324 MG PO (21:11)
[2022-05-01] MEDS: sodium chloride 0.9% 1,000 ML 125 ML IV (21:12)
[2022-05-01] MEDS: carvedilol 3.125 mg Tablet PO (21:12)
[2022-05-01] MEDS: magnesium sulfate premix 2 GM/50 ML PIGGYBACK IV (21:12)
[2022-05-01] MEDS: pantoprazole 40 mg SDV IVP (21:16)
[2022-05-01 21:25] VITALS: BP 115/59; PULSE 89; RESP 22; O2SAT 99
[2022-05-01] MEDS: HYDROcodone-acetaminophen 10-325 mg Tablet 1 TAB PO (22:09)
[2022-05-01] MEDS: gabapentin 100 mg Capsule PO (22:09)
[2022-05-01] MEDS: atorvastatin 40 mg Tablet PO (22:10)
[2022-05-01] MEDS: enoxaparin 100 mg/mL Syringe 90 MG SUBCUT (22:10)
[2022-05-01] MEDS: magnesium oxide 400 mg tablet PO (22:10)
[2022-05-01 22:30] VITALS: PULSE 81
--- NOTE | 2022-05-01 22:31 | ECG_ITS ---
[facility] Test Date: 2022-05-01 Pat Name: Nhi Alonso Department: Room: 276 Gender: Female Hearing Specialist: : 1975 Requested By: Edmar Gilliam Order Number: [id number] Kaden MD: Gaurav Ortiz M.D. Measurements Intervals [place] Rate: 81 P: 69 PA: 145 QRS: 79 QRSD: 91 T: 95 QT: 375 QTc: 438 Interpretive Statements SINUS RHYTHM Compared to ECG 05/01/2022 19:12:00 No significant changes Electronically Signed On 05-02-2022 18:14:43 CDT by Gaurav Ortiz M.D. [id number]
[2022-05-01 22:39] LABS: ABG PCO2 38.6 mmHg (35-45); ABG PH Result 7.39 (7.35-7.45); Arterial Blood Gas Hematocrit 41.3 % (37-47); Base Excess ABG -1.6 mmol/L (-2.0-2.0); Blood Gas Allen Test Pos; Blood Gas Operator Identificat MONRO; Blood Gas Sample Site Radial, right; Blood Gas Sample Type Arterial; HCO3 ABG 23.2 mmol/L (22-26); Oxygen Device ROOM AIR; PO2 ABG 86.9 mmHg (80.0-100.0)
[2022-05-01 22:40] VITALS: BP 138/73; PULSE 89; RESP 21; TEMP 36.9; O2SAT 98
[2022-05-01] MEDS: diazePAM 5 mg Tablet PO (22:46)
[2022-05-01 23:03] LABS: Lactate (Lactic Acid level) 1.9 mmol/L (0.5-2.2)
[2022-05-02] VITALS (33 sets, daily range): BP systolic 86–146; BP diastolic 51–96; PULSE 65–113; RESP 8–28; TEMP 36.7–37.3; O2SAT 93–98
[2022-05-02 00:03] LABS: Troponin 5 6HR 218.8 ng/L (0-10); Troponin 5 6HR Delta 192.8 ng/L (0-12)
--- NOTE | 2022-05-02 02:00 | PC.NURSE ---
Contacted hospitalist regarding patient c/o right knee pain. Patint is tearful and states I know something is wrong . Orders received to adjust po pain coverage over 24 hours with a verbal order to give one dose now. X-ray ordered and patient given a warm compress for knee.
--- NOTE | 2022-05-02 02:10 | XRR_ITS ---
PROCEDURE INFORMATION: Exam: XR Left Knee Exam date and time: 05/02/2022 2:48 AM Age: 46 years old Clinical indication: Injury or trauma; Blunt trauma; Patient HX: Fall last night. C/O left knee pain. Abrasion to anterior aspect of knee. TECHNIQUE: Imaging protocol: Radiologic exam of the Left knee. Views: 1 or 2 views. AP and Lateral COMPARISON: [place] [id number] 05/01/2022 9:28 PM FINDINGS: Bones/joints: There is normal alignment without fractures or dislocations. Tiny lateral distal femoral condylar osteophyte is seen. The medial and lateral tibiofemoral compartments and patellofemoral compartment are unremarkable. There are no joint bodies. Soft tissues: There is no significant knee joint effusion. There are no radiopaque foreign bodies. There is mild knee region soft tissue swelling. Notes: If there is further concern, recommend follow-up radiographs or MRI for complete assessment. XR/XR knee LT 1-2V [id number] IMPRESSION: No fractures or dislocation of the left knee. Mild knee region soft tissue swelling.
[2022-05-02 02:36] LABS: Basophils % 0.4 %; Eosinophils # 0.1 10^3/uL (0.0-0.8); Eosinophils % 0.7 %; Hematocrit 40.7 % (37.0-47.0); Hemoglobin 13.6 g/dL (11.5-15.3); Lymphocytes # 2.5 10^3/uL (0.8-4.8); Lymphocytes % 24.4 %; Mean Corpuscular HGB Conc 33.4 g/dL (30.0-36.0); Mean Corpuscular Hemoglobin 32.1 pg (28.0-34.0); Mean Platelet Volume 9.5 fL (7.4-10.4); Monocytes # 0.7 10^3/uL (0.2-0.9); Neutrophils # 6.78 10^3/uL (1.8-7.7); Neutrophils % 67.1 %; Nucleated Red Blood Cells % 0 %; Platelet Count 171 10^3/cmm (130-400); Red Blood Count 4.24 10^6/uL (4.1-5.3); Red Cell Distribution Width 12.5 % (12.1-15.1); White Blood Count 10.1 10^3/uL (4.0-10.0)
[2022-05-02] MEDS: HYDROcodone-acetaminophen 10-325 mg Tablet 1 TAB PO ×4 (02:36→20:05)
[2022-05-02 02:47] LABS: Partial Thromboplastin Time 35.7 SECONDS (23.9-36.7)
[2022-05-02 02:52] LABS: Lactic Sepsis W/Reflex 1.7 mmol/L (0.5-2.2)
[2022-05-02 02:59] LABS: Anion Gap 14.2 (5-19); Blood Urea Nitrogen 12 mg/dL (6-20); Calcium 9.2 mg/dL (8.5-10.5); Carbon Dioxide 25 mmol/L (22-29); Chloride 107 mmol/L (98-107); Glomerular Filtration Rate 76.6 mL/min (90-130); Glucose 126 mg/dL (65-115); Magnesium 2.4 mg/dL (1.7-2.3); Osmolality Calculated 295 mOsm/kg (285-295); Phosphorus 2.5 mg/dL (2.5-4.5); Potassium 4.2 mmol/L (3.5-5.1); Sodium 142 mmol/L (136-145)
--- NOTE | 2022-05-02 03:46 | XRR_ITS ---
PROCEDURE INFORMATION: Exam: XR Right Knee Exam date and time: 05/02/2022 5:06 AM Age: 46 years old Clinical indication: Injury or trauma; Blunt trauma; Right; Prior surgery; Surgery type: Multiple unspecified surgeries to RT knee per patient. Patient HX: C/O RT knee pain post fall last night. Abrasion to anterior aspect of knee. TECHNIQUE: Imaging protocol: Radiologic exam of the Right knee. Views: 1 or 2 views. AP and Lateral COMPARISON: [place] [id number] 05/01/2022 9:28 PM FINDINGS: Bones/joints: There are 3 compartment small degenerative osteophytes with some tibial spine degenerative osteophytes. There are no fractures or dislocations. [id number]-wmozuctt patellofemoral compartment joint space narrowing is seen, suggestive of osteoarthritic change. There are no joint bodies. Soft tissues: There is no joint effusion. Multiple surgical clips are seen in the posterior proximal tibia soft tissues. There is mild anterior knee region soft tissue swelling. Notes: If there is further concern, recommend follow-up radiographs or MRI for complete assessment. XR/XR knee RT 1-2V [id number] IMPRESSION: No fractures or dislocation of the right knee. Mild anterior knee region soft tissue swelling. Degenerative changes, as noted above.
[2022-05-02] MEDS: gabapentin 100 mg Capsule PO ×3 (08:54→20:05)
[2022-05-02] MEDS: diazePAM 5 mg Tablet PO ×2 (08:55→20:12)
[2022-05-02] MEDS: carvedilol 3.125 mg Tablet PO (08:55)
[2022-05-02] MEDS: aspirin 81 mg EC Tablet PO (08:55)
[2022-05-02] MEDS: sodium chloride 0.9% 1,000 ML 125 ML IV (08:55)
[2022-05-02] MEDS: enoxaparin 100 mg/mL Syringe 90 MG SUBCUT (08:55)
--- NOTE | 2022-05-02 10:03 | PM.CONSULT ---
Providers/Reason For Consult Consulting Physician/Specialty*: INDIRA Ortiz MD/cardiology Reason for Consult*: Patient with a syncope/seizure-like activity has elevated troponin T Requesting Physician: Dr. Mcgee Attending Physician: nOiel Chau MD Primary Care Provider: Mis Womack History of Present Illness History of Present Illness Nhi Alonso is a 46 year old female, is admitted to hospital following a syncopal episode/seizure-like activity. She was found to have elevated troponin T with a significant delta at 2 hours and 6 hours. Cardiology consult is requested for further cardiac evaluation recommendations. This patient is known to have type 2 diabetes, dyslipidemia and multiple other medical problems. She apparently has been in her baseline state of health up until yesterday afternoon when she fell off from her bed and was found on the floor, on her stomach with the twitching movements of the extremities. She was suddenly unresponsive for 5 to 10 minutes. She did not have any bowel or bladder incontinence. She was given Ativan by the EMS. Immediately in the ambulance, she came back to herself. She does not recall the events prior to that. The last thing that she remembers is going to bed to take a nap. She did not have any chest pain or palpitations prior to this event or following this event. She has no previous history for coronary artery disease, myocardial infarction or congestive heart failure. She has not had any unusual shortness of breath or fatigue prior to this event. Patient has a history of type 2 diabetes, history of Arnold-Chiari malformation with surgical intervention, dyslipidemia, status post multiple right knee surgeries, history of back surgery for lumbar stenosis and neurogenic claudication, gastrostomy tube placement, etc. At the time of my examination, patient has no specific symptoms like chest pain or chest tightness. No unusual shortness of breath. Patient had a baseline troponin T of 26 with a 2-hour delta 135 and a 6-hour delta of 193. EKG showed some nonspecific T wave changes in the high lateral leads. Echocardiogram was unremarkable. Review of Systems Narrative: CONSTITUTIONAL: No fever or chills. EYES: No blurring of vision or other visual disturbances lately. ENT: No hoarseness of voice, auditory disturbances or sore throat. CARDIOVASCULAR: As mentioned above. RESPIRATORY: History of smoking abuse, 1 pack a day for more than 30 years GASTROINTESTINAL: No hematemesis or melena. GENITOURINARY: No dysuria or hematuria. INTEGUMENTARY: No skin rashes or history of skin cancer. NEURO: No transient ischemic attacks or amaurosis. PSYCHIATRIC: No history of psychosis or major depression. HEMATOLOGIC: No bleeding disorders or significant anemia. ENDOCRINE: History of type 2 diabetes MUSCULOSKELETAL: Multiple knee surgery on the right side. History of back surgery ALLERGY/IMMUNOLOGY: As mentioned above. Medications/Allergies Home Medications Medication Instructions Recorded Confirmed Last Taken Type ergocalciferol (vitamin D2) 1,250 50,000 unit PO Q7D 12/04/20 05/11/22 06/15/21 History mcg (50,000 unit) capsule (Vitamin D2) sitagliptin 50 mg-metformin 1,000 1 tab PO BID 04/15/21 05/11/22 06/12/21 History mg tablet (Janumet) diclofenac sodium 1 % topical gel 4 g topical QID #100 grams 05/26/21 05/11/22 Unknown Rx (Voltaren Arthritis Pain) magnesium 500 mg tablet 500 mg PO BEDTIME 05/26/21 05/11/22 06/15/21 History melatonin 10 mg tablet 10 mg PO BEDTIME PRN Sleep 05/26/21 05/11/22 06/15/21 History gabapentin 100 mg capsule 100 mg PO TID 30 days #90 caps 07/29/21 05/02/22 Unknown Rx diazepam 5 mg tablet (Valium) 5 mg PO BID PRN anxiety 1 day #2 10/14/21 05/02/22 Unknown Rx tabs hydrocodone 10 mg-acetaminophen 1 tab PO QID PRN Pain 05/02/22 05/11/22 Unknown History 325 mg tablet ondansetron HCl 4 mg tablet 4 mg PO TID PRN Nausea 05/02/22 05/11/22 Unknown History aspirin 81 mg tablet,delayed 81 mg PO DAILY #30 tabs 05/03/22 05/11/22 Unknown Rx release atorvastatin 40 mg tablet 80 mg PO BEDTIME #60 tabs 05/03/22 05/11/22 06/15/21 Rx lisinopril 5 mg tablet 5 mg PO DAILY #30 tabs 05/03/22 05/11/22 Unknown Rx metoprolol tartrate 25 mg tablet 25 mg PO BID@0900,2100 #60 tabs 05/03/22 05/11/22 Unknown Rx Allergies Allergy/AdvReac Type Severity Reaction Status Date / Time No Known Allergies Allergy Verified 05/11/22 08:48 Current Medications Generic Name Dose Route Start Last Admin Trade Name Morgan PRN Reason Stop Dose Admin Hydrocodone Bitart/Acetaminophen 1 tab 05/02/22 02:15 05/02/22 08:54 Hydrocodone-Acetaminophen 10-325 Mg Tablet PO 1 tab Q6H [facility] Administration Aspirin 81 mg 05/02/22 09:00 05/02/22 08:55 Aspirin 81 Mg Ec Tablet PO 81 mg DAILY L[facility] Administration Atorvastatin Calcium 40 mg 05/01/22 21:00 05/01/22 22:10 Atorvastatin 40 Mg Tablet PO 40 mg BEDTIME L[facility] Administration Carvedilol 3.125 mg 05/01/22 20:50 05/02/22 08:55 Carvedilol 3.125 Mg Tablet PO 3.125 mg BID [facility] Administration Diazepam 5 mg 05/01/22 20:39 05/02/22 08:55 Diazepam 5 Mg Tablet PO 5 mg BID PRN Administration anxiety Enoxaparin Sodium 90 mg 05/01/22 21:00 05/02/22 08:55 Enoxaparin 100 Mg/Ml Syringe 1 mg/kg (90 mg) 90 mg SUBCUT Administration Q12H [facility] Gabapentin 100 mg 05/01/22 21:00 05/02/22 08:54 Gabapentin 100 Mg Capsule PO 100 mg TID [facility] Administration Sodium Chloride 1,000 mls @ 125 mls/hr 05/01/22 20:45 05/02/22 08:55 Sodium Chloride 0.9% IV 125 mls/hr .Q8H [facility] Administration Magnesium Oxide 400 mg 05/01/22 21:00 05/01/22 22:10 Magnesium Oxide 400 Mg Tablet PO 400 mg BEDTIME L[facility] Administration Pantoprazole Sodium 40 mg 05/01/22 20:45 05/01/22 21:16 Pantoprazole 40 Mg Sdv IVP 40 mg Q24H [facility] Administration PFSH Acute PFSH: Medical History Chronic pain disorder Cigar smoker motivated to quit Dyslipidemia Encounter for long-term opiate analgesic use Facet arthropathy, lumbosacral History of DVT (deep vein thrombosis) Hx of thrombosis of lower extremity due to blood clots right leg 2017 Intervertebral disc disorder with radiculopathy of lumbosacral region Long-term use of high-risk medication Lumbar stenosis with neurogenic claudication Neuralgia Opioid contract exists T2DM (type 2 diabetes mellitus) Tobacco abuse counseling Surgical History Arnold-Chiari malformation 01/2018 [facility] Posterior fossa decompression. Complication of feeding tube 10/01/2019 Dr. Javan Mccarty. Change of gastrostomy tube. History of abdominal surgery 2x History of oophorectomy History of tonsillectomy and adenoidectomy Hx of colectomy colostomy and reversal 04/1999 placement then reversed 1999 Hx of hysterectomy Hx of knee surgery 1 total knee replacement right side then additional 3 surgeries on the right knee Hx of tubal ligation Family History Mother Stroke Social History Smoking and tobacco status: former smoker Alcohol intake: never Household members: family Marital status: Current occupational status: disabled History of recent travel: No Vitals/I&O/Wt Last Vital Signs Temp 98.2 F 05/02/22 08:00 Pulse 82 05/02/22 08:00 Resp 18 05/02/22 08:00 BP 120/75 05/02/22 08:00 Pulse Ox 97 05/02/22 08:00 O2 Del Method 05/02/22 08:00 05/01/22 05/02/22 05/02/22 22:59 06:59 14:59 Intake Total 1050 / 1050 1300 / 2350 Balance 1050 / 1050 1300 / 2350 Weight last 48 hrs Weight 194 lb Physical Exam Narrative: GENERAL: The patient is alert and oriented times three. Not in any acute distress. HEENT: No significant pallor, icterus or lymphadenopathy.Oral cavity: There are no mucous membrane lesions. The fundus is not visualized NECK: Trachea appears to be central. No masses noted. No JVD or thyromegaly appreciated. RESPIRATORY: Chest is symmetrical. No intercostals muscle retraction or any accessory muscle activation. There is no chest wall tenderness. Breath sounds are heard bilaterally. No rales or rhonchi heard. No evidence of any consolidation. BREASTS: Deferred. HEART: The heart sounds are normal. No S3 or S4. No significant murmurs. No pericardial rub ABDOMEN: No vessel pulsations or distention. No tenderness. No organomegaly appreciated. Bowel sounds are normally heard. : Deferred. RECTAL: Deferred. LYMPHATIC: No lymphadenopathy noted in the neck. EXTREMITIES: The dorsalis pedis and posterior pulses are weak bilaterally with no cyanosis. MUSCULOSKELETAL: No acute joint deformities or swelling SKIN: There are no significant rashes or ecchymosis NEUROPSYCHIATRIC: The patient is alert and oriented x3. Appears to be in a good mood. No tremors or rigidity noted. Data : 05/02/22 02:04 05/03/22 02:29 Other Labs: Laboratory Last Values WBC 10.1 10^3/uL (4.0-10.0) H 05/02/22 02:04 RBC 4.24 10^6/uL (4.1-5.3) 05/02/22 02:04 Hgb 13.6 g/dL (11.5-15.3) 05/02/22 02:04 Hct 40.7 % (37.0-47.0) 05/02/22 02:04 MCV 96.0 fl (81-99) 05/02/22 02:04 MCH 32.1 pg (28.0-34.0) 05/02/22 02:04 MCHC 33.4 g/dL (30.0-36.0) 05/02/22 02:04 RDW 12.5 % (12.1-15.1) 05/02/22 02:04 Plt Count 171 10^3/cmm (130-400) 05/02/22 02:04 MPV 9.5 fL (7.4-10.4) 05/02/22 02:04 Neut % (Auto) 67.1 % 05/02/22 02:04 Lymph % (Auto) 24.4 % 05/02/22 02:04 Stevens % (Auto) 7.0 % 05/02/22 02:04 Eos % (Auto) 0.7 % 05/02/22 02:04 Baso % (Auto) 0.4 % 05/02/22 02:04 Neut # (Auto) 6.78 10^3/uL (1.8-7.7) 05/02/22 02:04 Lymph # (Auto) 2.5 10^3/uL (0.8-4.8) 05/02/22 02:04 Stevens # (Auto) 0.7 10^3/uL (0.2-0.9) 05/02/22 02:04 Eos # (Auto) 0.1 10^3/uL (0.0-0.8) 05/02/22 02:04 Baso # (Auto) 0.0 10^3/uL (0.0-0.1) 05/02/22 02:04 Nucleated RBC % (auto) 0 % 05/02/22 02:04 Nucleated RBCs # 0.0 /100WBC 05/02/22 02:04 ESR 24 mm/hr (0-15) H 05/01/22 17:14 PT 13.90 SECONDS (12.1-14.9) 05/01/22 17:14 INR 1.03 (0.8-1.2) 05/01/22 17:14 APTT 35.7 SECONDS (23.9-36.7) 05/02/22 02:04 D-Dimer 0.78 ug/mIFEU (0-0.59) H 05/01/22 17:14 Specimen Type Arterial 05/01/22 22:26 Sample Site Radial, right 05/01/22 22:26 ABG pH 7.39 (7.35-7.45) 05/01/22 22:26 ABG pCO2 38.6 mmHg (35-45) 05/01/22 22:26 ABG pO2 86.9 mmHg (80.0-100.0) 05/01/22 22:26 ABG HCO3 23.2 mmol/L (22-26) 05/01/22 22:26 ABG Base Excess -1.6 mmol/L (-2.0-2.0) 05/01/22 22:26 Rito Test Pos 05/01/22 22:26 Hematocrit 41.3 % (37-47) 05/01/22 22:26 O2 Delivery Device Room air 05/01/22 22:26 FiO2 21.0 % 05/01/22 22:26 Search Engine Marketing Strategist ID Monro 05/01/22 22:26 Sodium 142 mmol/L (136-145) 05/02/22 02:04 Potassium 4.2 mmol/L (3.5-5.1) 05/02/22 02:04 Chloride 107 mmol/L (98-107) 05/02/22 02:04 Carbon Dioxide 25 mmol/L (22-29) 05/02/22 02:04 Anion Gap 14.2 (5-19) 05/02/22 02:04 BUN 12 mg/dL (6-20) 05/02/22 02:04 Creatinine 0.8 mg/dL (0.5-0.9) 05/02/22 02:04 GFR Calculation 76.6 mL/min (90-130) L 05/02/22 02:04 Glucose 126 mg/dL (65-115) H 05/02/22 02:04 Calculated Osmolality 295 mOsm/kg (285-295) 05/02/22 02:04 Lactic Acid 1.7 mmol/L (0.5-2.2) 05/02/22 02:04 Lactate 1.9 mmol/L (0.5-2.2) 05/01/22 22:39 Calcium 9.2 mg/dL (8.5-10.5) 05/02/22 02:04 Phosphorus 2.5 mg/dL (2.5-4.5) 05/02/22 02:04 Magnesium 2.4 mg/dL (1.7-2.3) H 05/02/22 02:04 Total Bilirubin 0.2 mg/dL (0.15-1.2) 05/01/22 17:14 AST 23 U/L (0-32) 05/01/22 17:14 ALT 17 U/L (0-33) 05/01/22 17:14 Alkaline Phosphatase 71 U/L (35-105) 05/01/22 17:14 Troponin T Baseline 26 ng/L (0-10) H 05/01/22 17:14 Troponin T 120 Minute 160.8 ng/L (0-10) H 05/01/22 19:00 Delta Troponin T 134.8 ABS# (0-10) H* 05/01/22 19:00 Troponin T Hi Sens 6Hr 218.8 ng/L (0-10) H 05/01/22 22:39 Troponin T Hi Sens 6Hr Delta 192.8 ng/L (0-12) H* 05/01/22 22:39 C-Reactive Protein 3.0 mg/L (0.0-4.9) 05/01/22 17:14 NT-Pro-B Natriuret Pep 93 pg/mL (0-125) 05/01/22 17:14 Total Protein 7.5 g/dL (6.6-8.7) 05/01/22 17:14 Albumin 4.5 g/dL (3.5-5.2) 05/01/22 17:14 Globulin 3.0 g/dL (1.3-4.6) 05/01/22 17:14 Procalcitonin 0.03 ng/mL (0-0.5) 05/01/22 17:14 TSH 2.31 uIU/mL (0.27-4.20) 05/01/22 19:00 Prolactin 83.00 ng/mL (4.8-23.3) H 05/01/22 17:14 Urine Color Yellow (Yellow) 05/01/22 17:40 Urine Appearance Clear (CLEAR) 05/01/22 17:40 Urine pH 5 (5-7) 05/01/22 17:40 Ur Specific Preston 1.030 (1.005-1.030) 05/01/22 17:40 Urine Protein Trace (Negative) H 05/01/22 17:40 Urine Glucose (UA) Norm (Normal) 05/01/22 17:40 Urine Ketones 1+ (Negative) H 05/01/22 17:40 Urine Blood 2+ (Negative) H 05/01/22 17:40 Urine Nitrate Negative (Negative) 05/01/22 17:40 Urine Bilirubin Neg (Negative) 05/01/22 17:40 Urine Urobilinogen Neg mg/dL (Negative) 05/01/22 17:40 Ur Leukocyte Esterase Negative (Negative) 05/01/22 17:40 Urine RBC 0-4 /hpf (0-2) H 05/01/22 17:40 Urine WBC None /hpf (0-5) 05/01/22 17:40 Ur Squamous Epith Cells 5-10 /hpf (0-5) H 05/01/22 17:40 Amorphous Sediment Not Reportable 05/01/22 17:40 Urine Bacteria 1+ /hpf (NONE) H 05/01/22 17:40 Urine Mucus 1+ /hpf 05/01/22 17:40 Salicylates 1.6 mg/dL (3-10) L 05/01/22 Unknown Urine Opiates Screen Positive ng/mL (Negative) H 05/01/22 17:40 Acetaminophen 5.2 ug/mL (10-30) L 05/01/22 Unknown Ur Barbiturates Screen Negative ng/mL (Negative) 05/01/22 17:40 Ur Phencyclidine Scrn Negative ng/mL (Negative) 05/01/22 17:40 Ur Amphetamines Screen Negative ng/mL (Negative) 05/01/22 17:40 U Benzodiazepines Scrn Negative ng/mL (Negative) 05/01/22 17:40 Urine Cocaine Screen Negative ng/mL (Negative) 05/01/22 17:40 U Marijuana (THC) Screen Negative ng/mL (Negative) 05/01/22 17:40 Micro: Microbiology 05/01/22 18:09 Blood Culture - Preliminary Blood SPECIMEN COLLECTED 05/01/22 18:00 Blood Culture - Preliminary Blood SPECIMEN COLLECTED EKG 1: My Interpretation: Normal sinus rhythm with a heart rate of 82 bpm. Nonspecific T wave changes in the high lateral leads. EKG computer-generated impression: Chest X-Ray 05/01/22 17:12 IMPRESSION: No acute findings. Head CT 05/01/22 19:26 IMPRESSION: 1. No acute intracranial abnormality. 2. Redemonstrated Chiari 1 malformation with suboccipital decompression changes. Chest CTA 05/01/22 20:25 IMPRESSION: 1. Pulmonary arteries appear unremarkable. No evidence of pulmonary embolism. 2. No evidence of thoracic aortic aneurysm or dissection. 3. Changes of centrilobular emphysema demonstrated. Mild atelectasis versus fibrosis at the lung bases. No consolidative pulmonary infiltrates. 4. Calcified subcarinal and right hilar lymph nodes, consistent with old granulomatous disease. Venous Duplex 05/01/22 20:25 IMPRESSION: No evidence of deep vein thrombosis, bilateral lower extremities. Knee X-Ray 05/02/22 03:46 IMPRESSION: No fractures or dislocation of the right knee. Mild anterior knee region soft tissue swelling. Degenerative changes, as noted above. A&P Assessment and plan (1) Syncope and collapse: Etiology is not clear. Patient apparently has no intracranial pathology based on the CT of the head. Possibility of some form of malignant cardiac arrhythmia causing this is a consideration. So far she was found to have no evidence of any significant arrhythmias on the monitor. The EKG is unremarkable. (2) Acute non-ST elevation myocardial infarction (NSTEMI): Patient's clinical features are consistent with a non-ST elevation myocardial infarction with a significant elevation of the troponin T. EKG showed some nonspecific T wave changes. The echocardiogram is unremarkable. Currently she is fairly asymptomatic. (3) T2DM (type 2 diabetes mellitus): The patient's blood sugar seems to be fairly under control. The Sitagliptin is on hold. We will continue close monitoring of the blood sugar. (4) Dyslipidemia: Patient has been taking the statin. Continue the same. (5) Arnold-Chiari malformation: S/p surgical intervention. No residual neurological deficits. (6) Chronic pain disorder: Patient days currently stable. Her back pain is under control. (7) History of DVT (deep vein thrombosis): Patient is on long-term oral anticoagulation with Coumadin. Her INR is subtherapeutic. Plan In view of the patient's episode of syncope and markedly elevated troponin T, it may be appropriate to go ahead with a coronary angiogram to further evaluate the coronary status and decide on further management. I discussed with the patient and the family about the option of doing a stress test at the later time. The patient and the family is wanting to go ahead with the angiogram since she never had any syncopal episodes or seizure activities in the past. At this point, we may go ahead with the coronary angiogram. Discussed with Dr. Chau however my clinical impression and the management options. Dr. Chau concurred with the plan of going ahead with the angiogram. Patient will be kept NPO. Based on the the angiogram findings, further recommendations will be made. Coding Level of Care Code Acute Cash Register Balancer for Chg Fwd History Expanded Problem Focused Exam Detailed Medical Decision Making Moderate Complexity Diagnoses Syncope and collapse R55 Acute non-ST elevation myocardial infarction (NSTEMI) I21.4 T2DM (type 2 diabetes mellitus) E11.9 Dyslipidemia E78.5 Arnold-Chiari malformation Q07.00 Chronic pain disorder G89.4 History of DVT (deep vein thrombosis) Z86.718
--- NOTE | 2022-05-02 11:45 | XACV_ITS ---
Exam Room: [facility] Ht: 165 cm Wt: 88 kg BSA: 2.04 m2 Gender: Female : 1975 Exam Priority: Routine Procedure(s): Procedure Description: Diagnostic procedure Procedure Description: Left Heart Catheterization Procedure Description: Left ventriculography Procedure Description: Coronary Angiography Diagnostic Cath Status: Urgent Diagnostic Findings * Left main is a medium caliber vessel with no significant obstructive lesions. * Left anterior descending artery is a medium caliber vessel which appears to wrap around the LV apex. The proximal to mid LAD was found to have around 20 to 30% somewhat irregular narrowing, involving the ostium of the first 2 diagonal branch. The first 2 diagonal artery is a small to medium caliber vessel with around 30% ostial narrowing. No other significant stenotic lesions were noted.. * The left circumflex artery is a relatively large dominant vessel which gives off a high obtuse marginal branch(intermedius artery) with a minimal narrowing, proximally, involving the ostium. No significant stenotic lesions were noted.. * The right coronary artery is a relatively small nondominant vessel with no significant stenotic lesions. Conclusions 1. 46-year-old white female with a history of diabetes and dyslipidemia, presenting with acute onset of syncope/near syncope with a significantly elevated troponin T. Nonspecific EKG changes. Cardiac catheterization revealing mild coronary artery disease. Severe hypokinesia of the basal inferior and basal anterior wall segment with some dilatation of the LV cavity. Normal contractility of the mid and apical segments. Markedly elevated LVEDP of 31 mmHg. These features may suggest an atypical form of Takotsubo syndrome. Diagnostic RX Recommendation: medical therapy and/or counseling LV EDP: 31 mmHg Ventriculography Ejection Fraction: 40.0 % Left Ventriculography Findings: * The LV gram was performed in the العراق[place] projection. The LV cavity is somewhat dilated at the base with severely hypokinetic basal inferior and anterior wall segments. There are no filling defects.. Pressures Phase:Rest AO : 112 / 82 ( 98 ) @ 1:31:00 PM 129 / 79 ( 101 ) @ 1:37:00 PM 128 / 79 ( 102 ) @ 1:37:00 PM LV : 137 / 6 / 32 @ 1:35:00 PM 136 / 8 / 35 @ 1:36:00 PM 131 / 8 / 34 @ 1:37:00 PM Valves Phase:DefaultPhase AV : 2.0 @ 12:45:40 PM AV Mean Gradient: 17.0 @ 12:45:40 PM 17.0 @ 12:45:41 PM Clinical Evaluation EBL: 5mL-10mL Procedural Details Procedure Consent Obtained. Current Diagnosis : NSTEMI. Pre-Procedure Time Out. Identified patient by full name and date of as verbalized by the patient/guarantor. Does the consent match the physician's order: Yes. Accurate & Complete Informed Consent: Yes. Inpatient/Outpatient History & Physical on Chart: Yes. If H&P is completed, is and addenduem needed: No; If yes, is the addendum complete: N/A. Visualize and Verify Site with Patient/Guarantor: N/A. Relevant Radiology Images available: Yes. Pre-op teaching completed and patient verbalized understanding. The risks, benefits, and alternatives of sedation and/or procedure were discussed by physician. The patient agrees to continue. Procedure started. [facility] Clinical Fraility Score: 3: Managing Well. 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 Chest Pain Symptom Assessment: Typical Angina Symptoms. Cardiovascular Instability: No. Correct patient, site and procedure confirmed by cath team. PERRLA. Strong, equal hand senior quality analyst bilaterally. Lungs clear x 5 lobes. IV Site on Arrival: 20 gauge in the right outer wrist. IV Fluids: 0.9% NaCl at KVO. 0 mL infused prior to clinical laboratory service teacher. Pre Procedural Pulses: bilateral radial was 2+. Pre Procedural Pulses: bilateral dorsalis pedis was Doppled. Pre Procedural Pulses: bilateral posterior tibial was Doppled. Oxygen started at 2liters/min via nasal canula. right groin was prepped with chloroprep then draped in the usual sterile fashion. right radial was prepped with chloroprep then draped in the usual sterile fashion. Physician notified. Baseline sample Acquired. HR: 77 BPM. Patient's family in the CPRU waiting room. Dr. Ortiz will update at the completion of the procedure. Equipment: 6F - Radial. Cardiac Cath Pack. ACIST Manifold Kit Model BT 2000. Heparinized Saline (2 units/mL), 1000 mL bag. Physician arrived. Physician scrubbed in. Immediate Pre-Procedure Time Out. Correct Patient: Yes; Correct Procedure: Yes; Correct Site: Yes; Correct Patient Position: Yes; Correct Supplies: Yes; Dried Flammable Prep: Yes; Blood Products Available: N/A. Lidocaine 1% infiltrated to the right radial. Arterial access obtained. A 5 comoran Noel catheter in over the exchange J wire. Multiple views taken of left coronary artery. Catheter redirected to the RCA. Multiple views taken of right coronary artery. Catheter removed over the exchange wire. A 5 comoran Angled Pig catheter in over the exchange wire. EDP Sample taken: LV 137/6,32; HR: 85 BPM; SpO2: 99%. LV gram performed in العراق[place] @ 10 mL/second for a total of 30 mL. EDP Sample taken: LV 136/8,35; HR: 85 BPM; SpO2: 99%. Pullback taken: LV 131/8,34; AO 129/79(101); Mean: 17mmHg, Peak to Peak: 2mmHg, SEP: 10sec/min; HR: 82 BPM; SpO2: 99%. Catheter removed over the exchange wire. A TR Band was unsuccessful obtaining hemostatsis at the Right Radial artery insertion site. Dr. Ortiz Scrubbed out. Family updated. TR band placed. Hemostasis obtained. Post Procedure: Pulses reassessed and unchanged. PERRLA. Strong, equal hand senior quality analyst bilaterally. No VTE prophylaxis required. Medication's Wasted: Lidocaine 1% = 3 mL. Medication's Wasted: Nitro = 49.8 mg. Medication's Wasted: Heparin = 4500 units. Total IV fluids: 266 mL. Post-op diagnosis: Mild CAD and Cardiomyopathy. Complications: none. Estimated blood loss: 5mL-10mL. Responsiveness - Normal response to verbal stimuli; alert and oriented, PERRLA. Airway - Unaffected, no intervention required; spontaneous ventilation. Circulation: W/N/L, pulses unchanged. Nausea/Vomiting: No. Patient transferred by wheelchair to [facility]. Procedure completed. Vital chart was stopped. Access Site Site: Right Radial artery Sheath Size: 6 Fr Hemostasis Method: TR Band Hemostasis Success: Unsuccessful Procedure Medications Start: 12:19 PM Stop: 12:19 PM Medication: Versed Amount: 1 mg Route: I.V. Start: 12:19 PM Stop: 12:19 PM Medication: Fentanyl Amount: 50 mcg Route: I.V. Start: 12:25 PM Stop: 12:25 PM Medication: Versed Amount: 1 mg Route: I.V. Start: 12:25 PM Stop: 12:25 PM Medication: Verapamil Amount: 5 mg Route: I.A. Start: 12:26 PM Stop: 12:26 PM Medication: Nitrogylcerin Amount: 200 mcg Route: I.A. Start: 12:27 PM Stop: 12:27 PM Medication: Fentanyl Amount: 25 mcg Route: I.V. Start: 12:34 PM Stop: 12:34 PM Medication: Heparin Amount: 1500 units Route: I.V. I, the attending physician, have reviewed and verified all procedure medications. Yes, all medications given per verbal order History/Risk Factors Hypertension: Yes Dyslipidemia: Yes Peripheral Arterial Disease (PAD): No Myocardial Infarction ([place]): No Obesity: No Renal Disease: No Tobacco Use: Current/Recent(w/in 1 year) Prior Interventions PCI: No CABG: No Valve Surgery: No Report Signatures Finalized by Dr Gaurav Ortiz MD [facility] on 05/02/2022 03:02 PM
[2022-05-02 12:17] LABS: Troponin T (5th) Once 168 ng/L (0-10)
--- NOTE | 2022-05-02 13:18 | ECG_ITS ---
[facility] Test Date: 2022-05-02 Pat Name: Nhi Alonso Department: Room: 276 Gender: Female Hot Man: : 1975 Requested By: Gaurav Ortiz Order Number: [id number] Kaden MD: Gaurav Ortiz M.D. Measurements Intervals [place] Rate: 71 P: 65 WV: 150 QRS: 74 QRSD: 98 T: 106 QT: 427 QTc: 467 Interpretive Statements SINUS RHYTHM INCOMPLETE RIGHT BUNDLE BRANCH BLOCK [90+ ms QRS DURATION, TERMINAL R IN V1/V2, 40+ ms S IN I/aVL/V4/V5/V6] Compared to ECG 05/01/2022 22:31:25 Incomplete right bundle-branch block now present Electronically Signed On 05-02-2022 18:18:02 CDT by Gaurav Ortiz M.D. [email or web address] [email or web address] st[facility].[email or web address]/store/[id number]
--- NOTE | 2022-05-02 14:28 | PM.PN ---
Subjective Subjective: Hospital course, labs appreciated Seen post cardiac angiogram. Lying comfortably in bed. Denies any nausea, vomiting, headache, dizziness, chest pain. Vitals/I&O/Wt Last Vital Signs Temp 98.2 F 05/02/22 12:00 Pulse 73 05/02/22 13:28 Resp 16 05/02/22 12:00 BP 109/75 05/02/22 12:00 Pulse Ox 98 05/02/22 13:28 O2 Del Method 05/02/22 13:28 05/01/22 05/02/22 05/02/22 22:59 06:59 14:59 Intake Total 1050 / 1050 1300 / 2350 Balance 1050 / 1050 1300 / 2350 Weight last 48 hrs Weight 87.997 kg Physical Exam Const: COMMON NORMALS: no acute distress and patient oriented x3 HENMT: COMMON NORMALS: normocephalic HEAD & SCALP: normocephalic Eye: COMMON NORMALS: Equal, round and reactive pupils present and EOMs intact bilaterally PUPIL: Yes Equal, round and reactive pupils present Neck/C-Spine: COMMON NORMALS: no JVD Resp: COMMON NORMALS: normal respiratory effort, No retractions, No use of accessory muscles and clear to auscultation bilaterally AUSCULTATION: clear to auscultation bilaterally Cardio: COMMON NORMALS: no JVD, regular rate, regular rhythm, S1 normal heart sound present and S2 normal heart sound present RATE: regular rate RHYTHM: regular rhythm HEART SOUNDS: S1 normal heart sound present and S2 normal heart sound present GI: COMMON NORMALS: Normal to inspection, nondistended, normoactive bowel sounds present, Soft to palpation, non-tender, No hepatosplenomegaly present, no masses and no bruits PALPATION: Yes Soft to palpation and Yes No hepatosplenomegaly present Extremity: COMMON NORMALS: capillary refill normal, no clubbing, cyanosis or edema, no calf tenderness and no pedal edema Neuro: COMMON NORMALS: patient oriented x3, CN's II-XII intact bilaterally, moves all extremities and no focal motor deficits Psych: COMMON NORMALS: mental status grossly normal Skin: NARRATIVE SKIN EXAM: Multiple bruises, bilateral bang Data : 05/02/22 02:04 05/02/22 02:04 Micro: Microbiology 05/01/22 18:09 Blood Culture - Preliminary Blood SPECIMEN COLLECTED 05/01/22 18:00 Blood Culture - Preliminary Blood SPECIMEN COLLECTED A&P Assessment and plan (1) Syncope and collapse: CTA negative for pulm embolism, CT head negative for acute event overnight. High concern for cardiac event. Overnight had elevated and troponins with positive delta. Echocardiogram was concerning for regional wall motion normality with a normal EF of around 55%. Given episodes of syncope and collapse on admission she underwent cardiac angiogram which was concerning for possible Takotsubo cardiomyopathy. (2) Takotsubo cardiomyopathy: Appreciate cardiology recommendation. Stop Coreg and start on metoprolol 25 mg twice daily. Add lisinopril 5 mg oral daily. Will uptitrate as per blood pressure goal of less than 140/90 mmHg. (3) Acute non-ST elevation myocardial infarction (NSTEMI): Ruled out. Check A1c, lipid panel. Continue home dose of statin. Aspirin 81 mg daily. (4) Seizure-like activity: (5) Lactic acidosis: Plan History of DVT: Takes warfarin 5 mg oral daily. Subtherapeutic on admission. Last DVT in 2017. Patient does not have history of cancer or family history of blood clots. Patient is fairly immobile. DVT negative on lower limb Dopplers on admission. PE not present on CTA. Will stop anticoagulation on discharge. Patient is agreeable. Full code. Cardiac diet. Lovenox for DVT prophylaxis Famotidine for DVT prophylaxis Attestations Medical Necessity Statement*: Requires further admission for evaluation of syncope while arrhythmia is ruled out and medications are adjusted given Takotsubo's cardiomyopathy Time Spent in Patient Care: Greater than 35 minutes Coding Level of Care Code Acute Insurance Processing Clerk for Velvet Turner Diagnoses Syncope and collapse R55 Takotsubo cardiomyopathy I51.81 Acute non-ST elevation myocardial infarction (NSTEMI) I21.4 Seizure-like activity R56.9 Lactic acidosis E87.2
[2022-05-02 14:56] LABS: Iron 51 ug/dL (37-145); Percent Saturation 20.5 % (20-50); Total Iron Binding Capacity 248 mcg/dl; Unsaturated Iron Binding 197 ug/dL (112-347)
[2022-05-02] MEDS: pantoprazole 40 mg SDV IVP (20:05)
[2022-05-02] MEDS: metoprolol tartrate 25 mg Tablet PO (20:05)
[2022-05-02] MEDS: magnesium oxide 400 mg tablet PO (20:05)
[2022-05-02] MEDS: atorvastatin 40 mg Tablet PO (20:06)
[2022-05-03] VITALS (7 sets, daily range): BP systolic 115–141; BP diastolic 68–77; PULSE 59–96; RESP 16–18; TEMP 36.7–37.1; O2SAT 94–96
[2022-05-03] MEDS: HYDROcodone-acetaminophen 10-325 mg Tablet 1 TAB PO ×2 (02:50→09:04)
[2022-05-03 04:14] LABS: Alanine Aminotransferase 17 U/L (0-33); Albumin Level 3.4 g/dL (3.5-5.2); Alkaline Phosphatase 61 U/L (35-105); Blood Urea Nitrogen 11 mg/dL (6-20); Calcium 8.9 mg/dL (8.5-10.5); Carbon Dioxide 19 mmol/L (22-29); Chloride 107 mmol/L (98-107); Chol HDL Ratio 4.55 mg/dL (0.0-4.40); Cholesterol 150 mg/dL (0-200); Creatinine Clr Calc Pharmacy 125.6247; Globulin 3.1 g/dL (1.3-4.6); Glomerular Filtration Rate 106.7 mL/min (90-130); Glucose 114 mg/dL (65-115); HDL Cholesterol 33 mg/dL (60-100); LDL Cholesterol Calculated 75 mg/dL (50-129); Osmolality Calculated 286 mOsm/kg (285-295); Sodium 138 mmol/L (136-145); Total Bilirubin 0.5 mg/dL (0.15-1.2); Total Protein 6.5 g/dL (6.6-8.7); Triglycerides 209 mg/dL (0-150); VLDL Cholestrol Calculation 42 mg/dL (0-30)
[2022-05-03 04:15] LABS: Anion Gap 15.9 (5-19); Potassium 3.9 mmol/L (3.5-5.1)
[2022-05-03 04:16] LABS: Aspartate Amino Transferase 26 U/L (0-32)
[2022-05-03 04:19] LABS: Estmated Average Glucose 100; Hemoglobin A1C 5.1 % (4.0-6.0)
[2022-05-03] MEDS: diazePAM 5 mg Tablet PO (09:04)
[2022-05-03] MEDS: lisinopril 5 mg Tablet PO (09:04)
[2022-05-03] MEDS: aspirin 81 mg EC Tablet PO (09:04)
[2022-05-03] MEDS: gabapentin 100 mg Capsule PO (09:04)
[2022-05-03] MEDS: enoxaparin 40 mg/0.4 mL Syringe SUBCUT (09:05)
[2022-05-03] MEDS: metoprolol tartrate 25 mg Tablet PO (09:09)
--- NOTE | 2022-05-03 12:21 | P.DS_ITS ---
Discharge Providers Date of Admission: 05/01/22 20:39 Date of Discharge: May 03, 2022 Attending Provider at Admission: Taqueria Mcgee MD Attending Provider at Discharge: Oniel Chau MD Consults: Cardiology: Dr. Ortiz Primary Care Provider: Mis Womack Diagnoses at Discharge Discharge Diagnosis (1) Syncope and collapse: Status: Acute (2) Takotsubo cardiomyopathy: Status: Acute (3) Acute non-ST elevation myocardial infarction (NSTEMI): Status: Deleted (4) Seizure-like activity: Status: Acute (5) Lactic acidosis: Status: Acute (6) Subtherapeutic international normalized ratio (INR): Status: Acute (7) T2DM (type 2 diabetes mellitus): Status: Acute Reason for Visit Reason for Visit: AMS Brief History: History as per HPI: Nhi Alonso is a 46 year old female with a past medical history of Chiari malformation requiring surgical intervention, history of lumbar radiculopathy with stenosis requiring surgery, history of noninsulin-dependent type 2 diabetes mellitus, anxiety, hyperlipidemia, history of DVT on Coumadin who presents [facility] due to seizure-like episode.? According to patient, she has been in a regular bill health, she denies any cardiovascular history, no history of shortness of breath, no history of chest pain, no history of seizures, history of strokes.? She tells me that she was getting everything ready together for her daughter's gender reveal green party.? She went into her bedroom at roughly 230 and that the last and that the last thing she can remember according to her daughter there was a large thud and patient was on the floor, patient said that her daughter thought she was having seizure-like episodes, unresponsive, so she called EMS, when EMS arrived, she was combative.? She denies any shortness of breath, no chest pain, no nausea, no vomiting, headache, blurry vision she does have a history of DVT, on Coumadin. Hospital Course Hospital Course Patient was admitted to hospital further evaluation and management of syncopal event. On admission pulmonary embolism and CVA was ruled out. There is a concern for non-ST elevation IN because of positive delta troponin. Cardiology was consulted. Arrhythmia was ruled out as well. Echocardiogram was done which showed a normal EF. In view of patient's episode of syncope and markedly elevated troponin T patient underwent cardiac angiogram which was negative for any hemodynamically significant CAD has a high concern for Takotsubo's. Lower limb Dopplers were also done on on admission which were negative for DVT. On review of chart patient Doppler even in April of last year was negative. PE was also ruled out. Patient had a history of DVT in 2017. Given remote history of DVT without any further thromboembolic event and clearing up of DVT on multiple studies even with a subtherapeutic INR, Coumadin has been withheld going forward. She is been discharged in medically stable condition on adjusted cardiac medications, off Coumadin. Patient verbalized understanding and is agreeable. She is to follow-up with her primary care provider within next 1 week and nurse practitioner from cardiology within next 1 week as well. Physical Exam Const: COMMON NORMALS: no acute distress and patient oriented x3 HENMT: COMMON NORMALS: normocephalic HEAD & SCALP: normocephalic Eye: COMMON NORMALS: Equal, round and reactive pupils present and EOMs intact bilaterally PUPIL: Yes Equal, round and reactive pupils present Neck/C-Spine: COMMON NORMALS: no JVD Resp: COMMON NORMALS: normal respiratory effort, No retractions, No use of accessory muscles and clear to auscultation bilaterally AUSCULTATION: clear to auscultation bilaterally Cardio: COMMON NORMALS: no JVD, regular rate, regular rhythm, S1 normal heart sound present and S2 normal heart sound present RATE: regular rate RHYTHM: regular rhythm HEART SOUNDS: S1 normal heart sound present and S2 normal heart sound present GI: COMMON NORMALS: Normal to inspection, nondistended, normoactive bowel sounds present, Soft to palpation, non-tender, No hepatosplenomegaly present, no masses and no bruits PALPATION: Yes Soft to palpation and Yes No hepatosplenomegaly present Extremity: COMMON NORMALS: capillary refill normal, no clubbing, cyanosis or edema, no calf tenderness and no pedal edema Neuro: COMMON NORMALS: patient oriented x3, CN's II-XII intact bilaterally, moves all extremities and no focal motor deficits Psych: COMMON NORMALS: mental status grossly normal Skin: NARRATIVE SKIN EXAM: Multiple bruises, bilateral bang Discharge Data Studies Completed and Pending Completed Studies During Hospitalization Category Date Time Status CT angio chest PE protcl [id number] Stat Cat Scan 05/01/22 20:[address] head wo con* [id number] Stat Cat Scan 05/01/22 19:26 Completed 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 echo complete* [id number] Stat Ultrasound 05/01/22 20:10 Completed Pending at discharge Category Date Time Status Blood Culture Stat Lab 05/01/22 18:09 Results Radiology Impressions Chest X-Ray 05/01/22 17:12 IMPRESSION: No acute findings. Head CT 05/01/22 19:26 IMPRESSION: 1. No acute intracranial abnormality. 2. Redemonstrated Chiari 1 malformation with suboccipital decompression changes. Chest CTA 05/01/22 20:25 IMPRESSION: 1. Pulmonary arteries appear unremarkable. No evidence of pulmonary embolism. 2. No evidence of thoracic aortic aneurysm or dissection. 3. Changes of centrilobular emphysema demonstrated. Mild atelectasis versus fibrosis at the lung bases. No consolidative pulmonary infiltrates. 4. Calcified subcarinal and right hilar lymph nodes, consistent with old granulomatous disease. Venous Duplex 05/01/22 20:25 IMPRESSION: No evidence of deep vein thrombosis, bilateral lower extremities. Knee X-Ray 05/02/22 03:46 IMPRESSION: No fractures or dislocation of the right knee. Mild anterior knee region soft tissue swelling. Degenerative changes, as noted above. Echocardiogram: CONCLUSIONS ?Normal left ventricular size and systolic function, EF 55%. ?No regional wall motion abnormalities. ?Trace of tricuspid regurgitation. ? Estimated pulmonary artery peak systolic pressure 33 mmHg. ?There is no pericardial effusion. ?There are no intracardiac masses. ?Compared to the study from 03/21/2017, there may not be ?significant change ?Dr Gaurav Ortiz MD [facility] ?(Electronically Signed) ?Final Date:? ? ? 02 May 2022 ? 09:50 Laboratory Results WBC 10.1 10^3/uL (4.0-10.0) H 05/02/22 02:04 RBC 4.24 10^6/uL (4.1-5.3) 05/02/22 02:04 Hgb 13.6 g/dL (11.5-15.3) 05/02/22 02:04 Hct 40.7 % (37.0-47.0) 05/02/22 02:04 MCV 96.0 fl (81-99) 05/02/22 02:04 MCH 32.1 pg (28.0-34.0) 05/02/22 02:04 MCHC 33.4 g/dL (30.0-36.0) 05/02/22 02:04 RDW 12.5 % (12.1-15.1) 05/02/22 02:04 Plt Count 171 10^3/cmm (130-400) 05/02/22 02:04 MPV 9.5 fL (7.4-10.4) 05/02/22 02:04 Neut % (Auto) 67.1 % 05/02/22 02:04 Lymph % (Auto) 24.4 % 05/02/22 02:04 Meagher % (Auto) 7.0 % 05/02/22 02:04 Eos % (Auto) 0.7 % 05/02/22 02:04 Baso % (Auto) 0.4 % 05/02/22 02:04 Neut # (Auto) 6.78 10^3/uL (1.8-7.7) 05/02/22 02:04 Lymph # (Auto) 2.5 10^3/uL (0.8-4.8) 05/02/22 02:04 Meagher # (Auto) 0.7 10^3/uL (0.2-0.9) 05/02/22 02:04 Eos # (Auto) 0.1 10^3/uL (0.0-0.8) 05/02/22 02:04 Baso # (Auto) 0.0 10^3/uL (0.0-0.1) 05/02/22 02:04 Nucleated RBC % (auto) 0 % 05/02/22 02:04 Nucleated RBCs # 0.0 /100WBC 05/02/22 02:04 ESR 24 mm/hr (0-15) H 05/01/22 17:14 PT 13.90 SECONDS (12.1-14.9) 05/01/22 17:14 INR 1.03 (0.8-1.2) 05/01/22 17:14 APTT 35.7 SECONDS (23.9-36.7) 05/02/22 02:04 D-Dimer 0.78 ug/mIFEU (0-0.59) H 05/01/22 17:14 Specimen Type Arterial 05/01/22 22:26 Sample Site Radial, right 05/01/22 22:26 ABG pH 7.39 (7.35-7.45) 05/01/22 22: ABG pCO2 38.6 mmHg (35-45) 05/01/22 22: ABG pO2 86.9 mmHg (80.0-100.0) 05/01/22 22: ABG HCO3 23.2 mmol/L (22-26) 05/01/22 22: ABG Base Excess -1.6 mmol/L (-2.0-2.0) 05/01/22 22:26 Rito Test Pos 05/01/22 22:26 Hematocrit 41.3 % (37-47) 05/01/22 22:26 O2 Delivery Device Room air 05/01/22 22:26 FiO2 21.0 % 05/01/22 22:26 Commercial Specialist ID Christopher 05/01/22 22:26 Sodium 138 mmol/L (136-145) 05/03/22 02:29 Potassium 3.9 mmol/L (3.5-5.1) 05/03/22 02:29 Chloride 107 mmol/L (98-107) 05/03/22 02:29 Carbon Dioxide 19 mmol/L (22-29) L 05/03/22 02:29 Anion Gap 15.9 (5-19) 05/03/22 02:29 BUN 11 mg/dL (6-20) 05/03/22 02:29 Creatinine 0.6 mg/dL (0.5-0.9) 05/03/22 02:29 GFR Calculation 106.7 mL/min (90-130) 05/03/22 02:29 Glucose 114 mg/dL (65-115) 05/03/22 02:29 Estimat Average Glucose 100 05/03/22 02:29 Hemoglobin A1c 5.1 % (4.0-6.0) 05/03/22 02:29 Calculated Osmolality 286 mOsm/kg (285-295) 05/03/22 02:29 Lactic Acid 1.7 mmol/L (0.5-2.2) 05/02/22 02:04 Lactate 1.9 mmol/L (0.5-2.2) 05/01/22 22:39 Calcium 8.9 mg/dL (8.5-10.5) 05/03/22 02:29 Phosphorus 2.5 mg/dL (2.5-4.5) 05/02/22 02:04 Magnesium 2.4 mg/dL (1.7-2.3) H 05/02/22 02:04 Iron 51 ug/dL (37-145) 05/02/22 02:04 TIBC 248 mcg/dl 05/02/22 02:04 % Saturation 20.5 % (20-50) 05/02/22 02:04 Unsat Iron Binding 197 ug/dL (112-347) 05/02/22 02:04 Total Bilirubin 0.5 mg/dL (0.15-1.2) 05/03/22 02:29 AST 26 U/L (0-32) 05/03/22 02:29 ALT 17 U/L (0-33) 05/03/22 02:29 Alkaline Phosphatase 61 U/L (35-105) 05/03/22 02:29 Troponin T Gen 5 ng/L 168 ng/L (0-10) H* 05/02/22 02:04 Troponin T Baseline 26 ng/L (0-10) H 05/01/22 17:14 Troponin T 120 Minute 160.8 ng/L (0-10) H 05/01/22 19:00 Delta Troponin T 134.8 ABS# (0-10) H* 05/01/22 19:00 Troponin T Hi Sens 6Hr 218.8 ng/L (0-10) H 05/01/22 22:39 Troponin T Hi Sens 6Hr Delta 192.8 ng/L (0-12) H* 05/01/22 22:39 C-Reactive Protein 3.0 mg/L (0.0-4.9) 05/01/22 17:14 NT-Pro-B Natriuret Pep 93 pg/mL (0-125) 05/01/22 17:14 Total Protein 6.5 g/dL (6.6-8.7) L 05/03/22 02:29 Albumin 3.4 g/dL (3.5-5.2) L 05/03/22 02:29 Globulin 3.1 g/dL (1.3-4.6) 05/03/22 02:29 Triglycerides 209 mg/dL (0-150) H 05/03/22 02:29 Cholesterol 150 mg/dL (0-200) 05/03/22 02:29 LDL Cholesterol, Calc 75 mg/dL (50-129) 05/03/22 02:29 Total VLDL Cholesterol 42 mg/dL (0-30) H 05/03/22 02:29 HDL Cholesterol 33 mg/dL (60-100) L 05/03/22 02:29 Cholesterol/HDL Ratio 4.55 mg/dL (0.0-4.40) H 05/03/22 02:29 Procalcitonin 0.03 ng/mL (0-0.5) 05/01/22 17:14 TSH 2.31 uIU/mL (0.27-4.20) 05/01/22 19:00 Prolactin 83.00 ng/mL (4.8-23.3) H 05/01/22 17:14 Urine Color Yellow (Yellow) 05/01/22 17:40 Urine Appearance Clear (CLEAR) 05/01/22 17:40 Urine pH 5 (5-7) 05/01/22 17:40 Ur Specific Bivins 1.030 (1.005-1.030) 05/01/22 17:40 Urine Protein Trace (Negative) H 05/01/22 17:40 Urine Glucose (UA) Norm (Normal) 05/01/22 17:40 Urine Ketones 1+ (Negative) H 05/01/22 17:40 Urine Blood 2+ (Negative) H 05/01/22 17:40 Urine Nitrate Negative (Negative) 05/01/22 17:40 Urine Bilirubin Neg (Negative) 05/01/22 17:40 Urine Urobilinogen Neg mg/dL (Negative) 05/01/22 17:40 Ur Leukocyte Esterase Negative (Negative) 05/01/22 17:40 Urine RBC 0-4 /hpf (0-2) H 05/01/22 17:40 Urine WBC None /hpf (0-5) 05/01/22 17:40 Ur Squamous Epith Cells 5-10 /hpf (0-5) H 05/01/22 17:40 Amorphous Sediment Not Reportable 05/01/22 17:40 Urine Bacteria 1+ /hpf (NONE) H 05/01/22 17:40 Urine Mucus 1+ /hpf 05/01/22 17:40 Salicylates 1.6 mg/dL (3-10) L 05/01/22 Unknown Urine Opiates Screen Positive ng/mL (Negative) H 05/01/22 17:40 Acetaminophen 5.2 ug/mL (10-30) L 05/01/22 Unknown Ur Barbiturates Screen Negative ng/mL (Negative) 05/01/22 17:40 Ur Phencyclidine Scrn Negative ng/mL (Negative) 05/01/22 17:40 Ur Amphetamines Screen Negative ng/mL (Negative) 05/01/22 17:40 U Benzodiazepines Scrn Negative ng/mL (Negative) 05/01/22 17:40 Urine Cocaine Screen Negative ng/mL (Negative) 05/01/22 17:40 U Marijuana (THC) Screen Negative ng/mL (Negative) 05/01/22 17:40 Vitals Last Vital Signs Temp 98.3 F 05/03/22 12:00 Pulse 67 05/03/22 12:00 Resp 16 05/03/22 12:00 BP 128/70 05/03/22 12:00 Pulse Ox 96 05/03/22 12:00 O2 Del Method 05/03/22 12:00 Discharge Plan Discharge Patient Disposition: Home Condition: Stable Prescriptions: New aspirin 81 mg Tablet,Delayed Release (Dr/Ec) 81 mg PO DAILY Qty: 30 0RF metoprolol tartrate 25 mg Tablet 25 mg PO BID@0900,2100 Qty: 60 0RF lisinopril 5 mg Tablet 5 mg PO DAILY Qty: 30 0RF Continued Janumet 50-1,000 mg tablet 1 tab PO BID gabapentin 100 mg capsule 100 mg PO TID 30 Days Qty: 90 1RF diazepam [Valium] 5 mg tablet 5 mg PO BID PRN (Reason: anxiety) 1 Days Qty: 2 0RF ergocalciferol (vitamin D2) [Vitamin D2] 1,250 mcg (50,000 unit) capsule 50,000 unit PO Q7D Rx Instructions: on fridays magnesium 500 mg Tablet 500 mg PO BEDTIME melatonin 10 mg Tablet 10 mg PO BEDTIME PRN (Reason: Sleep) diclofenac sodium [Voltaren Arthritis Pain] 1 % gel 4 g topical QID Qty: 100 0RF Rx Instructions: apply to single knee, ankle, foot; for foot includes sole/toes/top of foot Zofran 4 mg Tablet 4 mg PO TID PRN (Reason: Nausea) hydrocodone-acetaminophen 10-325 mg tablet 1 tab PO QID PRN (Reason: Pain) Changed atorvastatin 40 mg tablet 80 mg PO BEDTIME Qty: 60 0RF Discontinued warfarin 5 mg tablet 5 mg PO BEDTIME Discharge Orders: Discharge Order (Routine); Ordered 05/03/22 Ordered By: Oniel Chau Referrals: Mis Womack PA [Primary Care Provider] - 2 weeks Gaurav Ortiz MD [Physician] - 1 month Padmini Corey FNP [Nurse Practitioner] - 1 week Discharge Diet: Cardiac Discharge Activity: Resume usual activity and Increase activity as tolerated Patient Instructions: Opioid Safety Activity Restrictions/Additional Instructions: Take metoprolol 25 mg twice daily. Lisinopril 5 mg daily. Atorvastatin dose has been increased to 80 mg daily. Take baby aspirin 81 mg daily. Do not take Coumadin anymore. Please follow-up with a primary care provider within next 2 weeks, Padmini Corey from cardiology heart services/nurse practitioner within next [address] Ortiz within next 1 month. Discharge Attestations Time Spent in Discharge Care*: greater than 30 min Specific Discharge Activities: educating patient, discussing with pcp/other providers, discussing with shelter case manager/social workers/dc planners, documenting/other paperwork and evaluating patient/reviewing data Status at Discharge: Cognitive status at discharge: cognitively intact , Behavioral status at discharge: cooperative , Functional status at discharge: independent ambulation , Overall status at discharge: patient is back to baseline Quality Metrics Clinical Quality Measures [ No reported AMI, CVA or VTE this stay] Coding Level of Care Code Acute g DC note Diagnoses Syncope and collapse R55 Takotsubo cardiomyopathy I51.81 Acute non-ST elevation myocardial infarction (NSTEMI) I21.4 Seizure-like activity R56.9 Lactic acidosis E87.2 Subtherapeutic international normalized ratio (INR) R79.1 T2DM (type 2 diabetes mellitus) E11.9
--- NOTE | 2022-05-03 14:05 | PC.NURSE ---
discharge instructions given and explained.pt verb understanding of instructions.discharged via w/c to exit.spouse to drive pt home
== END 2022-05-03 14:06 | disposition home or self-care (01) ==
LOC: ER 20:09 → MEDSURG 22:04
PROVIDERS: Internal Medicine Cardiovascular Disease; Admitting Provider Family Medicine; Emergency Provider Emergency Medicine; PCP Physician Assistant; Visit Provider Student in an Organized Health Care Education/Training Program
DX: R55 Syncope and collapse (principal); I51.81 Takotsubo syndrome; I21.4 Non-ST elevation (NSTEMI) myocardial infarction; R56.9 Unspecified convulsions; E87.2 Acidosis; R79.1 Abnormal coagulation profile; E11.9 Type 2 diabetes mellitus without complications; F41.9 Anxiety disorder, unspecified; Z86.718 Personal history of other venous thrombosis and embolism; F17.210 Nicotine dependence, cigarettes, uncomplicated
CPT/HCPCS: 36415; 36600; 70450; 71045; 71275; 73560; 80048; 80053; 80061; 80306; 80307; 81001; 82803; 83036; 83540; 83550; 83605; 83735; 83880; 84100; 84145; 84146; 84443; 84484; 85025; 85378; 85610; 85651; 85730; 86140; 87040; 93005; 93306; 93458; 93970; 96360; 96372; 99152; 99153; 99285; C1769; C1887; C1894; C9113; G0378; J1644; J1650; J2250; J3010; J3475; J3490; J7030; Q9967

== ENCOUNTER → 2022-05-11 12:35 | Outpatient (BNVA) | payer MEDICARE, MEDICAID, SELFPAY | PROVIDERS: PCP Physician Assistant; Visit Provider Nurse Practitioner Family | DX: I51.81 Takotsubo syndrome (principal); Z87.891 Personal history of nicotine dependence | CPT/HCPCS: 80048; 99213; 99214 ==

== ENCOUNTER 2022-07-04 23:18 | Emergency (ER) | payer MEDICARE, MEDICAID, SELFPAY ==
--- NOTE | 2022-07-04 23:21 | XRR_ITS ---
PROCEDURE INFORMATION: Exam: XR Chest Exam date and time: 07/05/2022 12:50 AM Age: 46 years old Clinical indication: Injury or trauma; Fall; Blunt trauma (contusions or hematomas) TECHNIQUE: Imaging protocol: Radiologic exam of the chest. Views: 1 view. COMPARISON: CR XR chest 1V portable [id number] 05/01/2022 5:17 PM FINDINGS: Lungs: Unremarkable. No consolidation. Pleural spaces: Unremarkable. No pleural effusion. No pneumothorax. Heart/Mediastinum: Unremarkable. No cardiomegaly. Bones/joints: Unremarkable. XR/XR chest 1V portable [id number] IMPRESSION: No acute findings.
--- NOTE | 2022-07-04 23:21 | CTR_ITS ---
PROCEDURE INFORMATION: Exam: CT Head Without Contrast Exam date and time: 07/04/2022 11:41 PM Age: 46 years old Clinical indication: Injury or trauma; Fall; Blunt trauma (contusions or hematomas) TECHNIQUE: Imaging protocol: Computed tomography of the head without contrast. Radiation optimization: All CT scans at this facility use at least one of these dose optimization techniques: automated exposure control; mA and/or kV adjustment per patient size (includes targeted exams where dose is matched to clinical indication); or iterative reconstruction. COMPARISON: CT head wo con* [id number] 05/01/2022 7:35 PM RADIATION DOSE METRICS: Total DLP (mGy-cm): 1136.18 FINDINGS: Brain: Normal. No hemorrhage. Unremarkable white matter. No mass effect. Cerebral ventricles: No ventriculomegaly. Paranasal sinuses: Visualized sinuses are unremarkable. No fluid levels. Mastoid air cells: Visualized mastoid air cells are well aerated. Bones/joints: Occipital craniectomy changes. Soft tissues: Unremarkable. CT/CT head wo con* [id number] IMPRESSION: Negative for intracranial hemorrhage or mass effect.
--- NOTE | 2022-07-04 23:22 | ECG_ITS ---
[facility] Test Date: 2022-07-04 Pat Name: Nhi Alonso Department: Room: Gender: Female Research Instructor: : 1975 Requested By: Margarita Loja Order Number: [id number] Kaden MD: Gaurav Ortiz M.D. Measurements Intervals Likely Rate: 86 P: 60 NH: 150 QRS: 75 QRSD: 92 T: 74 QT: 357 QTc: 428 Interpretive Statements SINUS RHYTHM INTERPRETATION BASED ON A DEFAULT AGE OF 40 YEARS Compared to ECG 05/02/2022 13:18:22 Incomplete right bundle-branch block no longer present Electronically Signed On 07-06-2022 13:44:01 PRINCIPAL CONSULTING ENGINEER by Gaurav Ortiz M.D. [id number]
[2022-07-04 23:23] VITALS: BP 110/70; PULSE 89; RESP 16; TEMP 36.7; O2SAT 95; BMI 30.7
[2022-07-04 23:34] VITALS: BP 100/60; PULSE 81; RESP 16; O2SAT 93
[2022-07-04 23:37] LABS: Basophils # 0.1 10^3/uL (0.0-0.1); Basophils % 0.4 %; Eosinophils # 0.1 10^3/uL (0.0-0.8); Eosinophils % 1.1 %; Hematocrit 45.3 % (37.0-47.0); Hemoglobin 14.7 g/dL (11.5-15.3); Lymphocytes % 26.2 %; Mean Corpuscular HGB Conc 32.5 g/dL (30.0-36.0); Mean Corpuscular Hemoglobin 32.2 pg (28.0-34.0); Mean Corpuscular Volume 99.3 fl (81-99); Mean Platelet Volume 9.1 fL (7.4-10.4); Monocytes # 0.5 10^3/uL (0.2-0.9); Neutrophils # 7.72 10^3/uL (1.8-7.7); Neutrophils % 67.9 %; Nucleated Red Blood Cells % 0 %; Platelet Count 198 10^3/cmm (130-400); Red Blood Count 4.56 10^6/uL (4.1-5.3); Red Cell Distribution Width 13.1 % (12.1-15.1); White Blood Count 11.4 10^3/uL (4.0-10.0)
[2022-07-04 23:48] LABS: INR 0.93 (0.8-1.2)
[2022-07-04 23:55] LABS: Troponin(5th) Baseline 6 ng/L (0-10)
[2022-07-04 23:57] LABS: Alanine Aminotransferase 13 U/L (0-33); Albumin Level 3.9 g/dL (3.5-5.2); Alkaline Phosphatase 65 U/L (35-105); Aspartate Amino Transferase 20 U/L (0-32); Blood Urea Nitrogen 15 mg/dL (6-20); Calcium 9.7 mg/dL (8.5-10.5); Carbon Dioxide 19 mmol/L (22-29); Chloride 101 mmol/L (98-107); Globulin 2.9 g/dL (1.3-4.6); Glomerular Filtration Rate 66.8 mL/min (90-130); Glucose 93 mg/dL (65-115); Osmolality Calculated 279 mOsm/kg (285-295); Sodium 134 mmol/L (136-145); Total Bilirubin 0.2 mg/dL (0.15-1.2); Total Protein 6.8 g/dL (6.6-8.7)
[2022-07-05] VITALS: PULSE 90; RESP 19; O2SAT 93
--- NOTE | 2022-07-05 | ED_ITS ---
HPI - Syncope General: Chief Complaint: Syncope Stated Complaint: syncope/fall Time Seen by Provider: 07/04/22 23:21 Source: patient and EMS Mode of arrival: EMS Limitations: no limitations History of Present Illness: 46-year-old female states that she takes her pain meds tonight was feeling a little drowsy states she taken a shower and she passed out in the shower she does not really remember the events she does not have a headache but she is unsure if she hit her head she states this is happened in the past. Associated symptoms: Deny abdominal pain, fever(s), headache(s) or nausea Review of Systems Const: Denies: fever(s), chills, body aches or change in appetite Eyes: Denies: blurry vision or eye discomfort ENMT: Denies: throat pain or dental pain Card: Reports: syncope Resp: Denies: dyspnea GI: Denies: abdominal pain, nausea, vomiting or diarrhea : Denies: dysuria Musc: Denies: neck pain or back pain Skin/Breast: Denies: rash Neuro: Denies: headache(s) Psych: Denies: depression Gabriel/Lymph: Denies: easy bruising All/Imm: Denies: urticaria PFSH ED PFSH: Medical History Chronic pain disorder Cigar smoker motivated to quit Dyslipidemia Encounter for long-term opiate analgesic use Facet arthropathy, lumbosacral History of DVT (deep vein thrombosis) Hx of thrombosis of lower extremity due to blood clots right leg 2017 Intervertebral disc disorder with radiculopathy of lumbosacral region Long-term use of high-risk medication Lumbar stenosis with neurogenic claudication Neuralgia Opioid contract exists T2DM (type 2 diabetes mellitus) Tobacco abuse counseling Surgical History Arnold-Chiari malformation 01/2018 [facility] Posterior fossa decompression. Complication of feeding tube 10/01/2019 Dr. Javan Mccarty. Change of gastrostomy tube. History of abdominal surgery 2x History of oophorectomy History of tonsillectomy and adenoidectomy Hx of colectomy colostomy and reversal 04/1999 placement then reversed 1999 Hx of hysterectomy Hx of knee surgery 1 total knee replacement right side then additional 3 surgeries on the right knee Hx of tubal ligation Family History Mother Stroke Social History Smoking and tobacco status: former smoker Alcohol intake: never Household members: family Marital status: Current occupational status: disabled History of recent travel: No Physical Exam Const: COMMON NORMALS: no acute distress, patient oriented x3 and healthy appearing HENMT: COMMON NORMALS: normocephalic and atraumatic HEAD & SCALP: normocephalic and atraumatic Eye: COMMON NORMALS: Equal, round and reactive pupils present and EOMs intact bilaterally PUPIL: Yes Equal, round and reactive pupils present Neck/C-Spine: COMMON NORMALS: full ROM and supple Chest: COMMONS NORMALS: normal inspection of the chest and normal palpation of entire chest wall Resp: COMMON NORMALS: normal respiratory effort, No retractions, No use of accessory muscles and clear to auscultation bilaterally AUSCULTATION: clear to auscultation bilaterally Cardio: COMMON NORMALS: regular rate, regular rhythm and No murmurs present (Cardio) RATE: regular rate RHYTHM: regular rhythm GI: COMMON NORMALS: Normal to inspection, nondistended, normoactive bowel sounds present, Soft to palpation, non-tender and no masses PALPATION: Yes Soft to palpation Extremity: COMMON NORMALS: normal to inspection and full ROM Neuro: COMMON NORMALS: patient oriented x3, moves all extremities and no focal motor deficits Psych: COMMON NORMALS: mental status grossly normal, Normal thought process present and cooperative THOUGHT PROCESS: Normal thought process present Skin: COMMON NORMALS: no rashes or lesions noted and no wounds GENERAL SKIN EXAM: no rashes or lesions noted Course Vital Signs: Vital signs: Vital Signs Temperature 98.1 F 07/04/22 23:23 Pulse Rate 81 07/04/22 23:34 Respiratory Rate 16 07/04/22 23:34 Blood Pressure 100/60 07/04/22 23:34 Pulse Oximetry 93 07/04/22 23:34 Oxygen Delivery Me thod 07/04/22 23:34 MDM - Syncope Medical Decision Making Patient presents here after a syncopal event she is well-appearing here for likely from her medication no signs of cardiac cause she is to follow-up with PCP and return if worsening she understands agrees plan. Lab Data 07/04/22 23:31 07/04/22 23:31 Radiology Impressions Chest X-Ray 07/04/22 23: IMPRESSION: No acute findings. Head CT 07/04/22 23: IMPRESSION: Negative for intracranial hemorrhage or mass effect. Laboratory Results WBC 11.4 10^3/uL (4.0-10.0) H 07/04/22 23: RBC 4.56 10^6/uL (4.1-5.3) 07/04/22 23: Hgb 14.7 g/dL (11.5-15.3) 07/04/22 23: Hct 45.3 % (37.0-47.0) 07/04/22 23: MCV 99.3 fl (81-99) H 07/04/22 23: MCH 32.2 pg (28.0-34.0) 07/04/22 23: MCHC 32.5 g/dL (30.0-36.0) 07/04/22 23: RDW 13.1 % (12.1-15.1) 07/04/22 23: Plt Count 198 10^3/cmm (130-400) 07/04/22 23: MPV 9.1 fL (7.4-10.4) 07/04/22 23:31 Neut % (Auto) 67.9 % 07/04/22 23: Lymph % (Auto) 26.2 % 07/04/22 23: Rapides % (Auto) 4.0 % 07/04/22 23: Eos % (Auto) 1.1 % 07/04/22 23: Baso % (Auto) 0.4 % 07/04/22 23: Neut # (Auto) 7.72 10^3/uL (1.8-7.7) H 07/04/22 23: Lymph # (Auto) 3.0 10^3/uL (0.8-4.8) 07/04/22 23: Rapides # (Auto) 0.5 10^3/uL (0.2-0.9) 07/04/22 23: Eos # (Auto) 0.1 10^3/uL (0.0-0.8) 11/26/22 23:31 Baso # (Auto) 0.1 10^3/uL (0.0-0.1) 07/04/22 23: Nucleated RBC % (auto) 0 % 07/04/22 23: Nucleated RBCs # 0.0 /100WBC 07/04/22 23: PT 12.80 SECONDS (12.1-14.9) 07/04/22 23: INR 0.93 (0.8-1.2) 07/04/22 23:31 Sodium 134 mmol/L (136-145) L 07/04/22 23: Potassium 4.3 mmol/L (3.5-5.1) 07/04/22 23: Chloride 101 mmol/L (98-107) 07/04/22 23: Carbon Dioxide 19 mmol/L (22-29) L 07/04/22 23: Anion Gap 18.3 (5-19) 07/04/22 23: BUN 15 mg/dL (6-20) 07/04/22 23: Creatinine 0.9 mg/dL (0.5-0.9) 07/04/22 23: GFR Calculation 66.8 mL/min (90-130) L 07/04/22 23: Glucose 93 mg/dL (65-115) 07/04/22 23: Calculated Osmolality 279 mOsm/kg (285-295) L 07/04/22 23: Calcium 9.7 mg/dL (8.5-10.5) 07/04/22 23: Total Bilirubin 0.2 mg/dL (0.15-1.2) 07/04/22 23: AST 20 U/L (0-32) 07/04/22 23:31 ALT 13 U/L (0-33) 07/04/22 23:31 Alkaline Phosphatase 65 U/L (35-105) 07/04/22 23: Troponin T Baseline 6 ng/L (0-10) 07/04/22 23: Total Protein 6.8 g/dL (6.6-8.7) 07/04/22 23: Albumin 3.9 g/dL (3.5-5.2) 07/04/22 23: Globulin 2.9 g/dL (1.3-4.6) 07/04/22 23:31 Discharge Plan Discharge Patient Disposition: Home Clinical Impression: Syncope Condition: Stable Prescriptions: No Action Janumet 50-1,000 mg tablet 1 tab PO BID gabapentin 100 mg capsule 100 mg PO TID 30 Days Qty: 90 1RF Hold Instructions: Patient No Longer Taking diazepam [Valium] 5 mg tablet 5 mg PO BID PRN (Reason: anxiety) 1 Days Qty: 2 0RF lisinopril 5 mg tablet 5 mg PO DAILY Qty: 90 1RF metoprolol tartrate 25 mg tablet 25 mg PO BID@0900,2100 Qty: 180 1RF ergocalciferol (vitamin D2) [Vitamin D2] 1,250 mcg (50,000 unit) capsule 50,000 unit PO Q7D Rx Instructions: on fridays magnesium 500 mg Tablet 500 mg PO BEDTIME melatonin 10 mg Tablet 10 mg PO BEDTIME PRN (Reason: Sleep) diclofenac sodium [Voltaren Arthritis Pain] 1 % gel 4 g topical QID Qty: 100 0RF Rx Instructions: apply to single knee, ankle, foot; for foot includes sole/toes/top of foot ondansetron HCl 4 mg Tablet 4 mg PO TID PRN (Reason: Nausea) hydrocodone-acetaminophen 10-325 mg tablet 1 tab PO QID PRN (Reason: Pain) aspirin 81 mg Tablet,Delayed Release (Dr/Ec) 81 mg PO DAILY Qty: 30 0RF atorvastatin 40 mg tablet 80 mg PO BEDTIME Qty: 60 0RF Discharge Orders: Discharge ED (Routine); Ordered 07/05/22 Ordered By: Margarita Loja Referrals: Mis Womack PA [Primary Care Provider] - 1-3 days Discharge Diet: Advance as tolerated Discharge Activity: Resume usual activity Patient Instructions: Syncope (ED) Coding Level of Care Code ED Communications Agent for Chg Fwd Exam Comprehensive
[2022-07-05 00:02] LABS: Anion Gap 18.3 (5-19); Potassium 4.3 mmol/L (3.5-5.1)
== END 2022-07-05 00:37 | disposition home or self-care (01) ==
PROVIDERS: Emergency Provider Emergency Medicine; PCP Physician Assistant
DX: R55 Syncope and collapse (principal)
CPT/HCPCS: 70450; 71045; 80053; 84484; 85025; 85610; 93005; 99285

== ENCOUNTER → 2022-07-20 13:54 | Outpatient (BNVA) | payer MEDICARE, MEDICAID, SELFPAY | PROVIDERS: PCP Physician Assistant; Visit Provider Internal Medicine Cardiovascular Disease | DX: Z53.9 Procedure and treatment not carried out, unspecified reason (principal) ==

== ENCOUNTER 2022-08-15 18:18 | Emergency (ER) | payer MEDICARE, MEDICAID, SELFPAY ==
[2022-08-15 18:19] VITALS: BP 128/69; PULSE 97; RESP 15; O2SAT 97; BMI 29.9
--- NOTE | 2022-08-15 18:22 | CTR_ITS ---
PROCEDURE INFORMATION: Exam: CT Head Without Contrast Exam date and time: 08/15/2022 6:27 PM Age: 46 years old Clinical indication: Pain; Headache; Migraine; Aura effect not specified; Additional info: MARSH TECHNIQUE: Imaging protocol: Computed tomography of the head without contrast. Radiation optimization: All CT scans at this facility use at least one of these dose optimization techniques: automated exposure control; mA and/or kV adjustment per patient size (includes targeted exams where dose is matched to clinical indication); or iterative reconstruction. COMPARISON: CT head wo con* [id number] 07/04/2022 11:41 PM RADIATION DOSE METRICS: Total DLP (mGy-cm): 1148.54 FINDINGS: Brain: Normal. No hemorrhage. Unremarkable white matter. No mass effect. Cerebral ventricles: No ventriculomegaly. Paranasal sinuses: Visualized sinuses are unremarkable. No fluid levels. Mastoid air cells: Visualized mastoid air cells are well aerated. Bones/joints: Unremarkable. No acute fracture. Soft tissues: Unremarkable. CT/CT head wo con* [id number] IMPRESSION: No acute intracranial abnormality.
--- NOTE | 2022-08-15 18:23 | ED_ITS ---
HPI - Seizure General: Chief Complaint: Seizure Stated Complaint: SEIZURES Time Seen by Provider: 08/15/22 18:20 Source: patient and EMS Mode of arrival: EMS Limitations: no limitations History of Present Illness: HPI Narrative: 46-year-old female states that she had a seizure roughly 45 minutes ago that lasted 2 to 3 minutes states she had 1 previous seizure this year as well no seizure history before that she is not on any seizure medication denies any headache she is at her baseline answering all my questions appropriately here. Associated symptoms: Deny chest pain, chills or fever(s) Review of Systems Const: Denies: fever(s), chills, body aches or change in appetite Eyes: Denies: blurry vision or eye discomfort ENMT: Denies: throat pain or dental pain Card: Denies: chest pain Resp: Denies: dyspnea GI: Denies: abdominal pain, nausea, vomiting or diarrhea : Denies: dysuria Musc: Denies: neck pain or back pain Skin/Breast: Denies: rash Neuro: Reports: seizure-like activity Psych: Denies: depression Gabriel/Lymph: Denies: easy bruising All/Imm: Denies: urticaria PFSH ED PFSH: Medical History Chronic pain disorder Cigar smoker motivated to quit Dyslipidemia Encounter for long-term opiate analgesic use Facet arthropathy, lumbosacral History of DVT (deep vein thrombosis) Hx of thrombosis of lower extremity due to blood clots right leg 2017 Intervertebral disc disorder with radiculopathy of lumbosacral region Long-term use of high-risk medication Lumbar stenosis with neurogenic claudication Neuralgia Opioid contract exists T2DM (type 2 diabetes mellitus) Tobacco abuse counseling Surgical History Arnold-Chiari malformation 01/2018 [facility] Posterior fossa decompression. Complication of feeding tube 10/01/2019 Dr. Javan Mccarty. Change of gastrostomy tube. History of abdominal surgery 2x History of oophorectomy History of tonsillectomy and adenoidectomy Hx of colectomy colostomy and reversal 04/1999 placement then reversed 1999 Hx of hysterectomy Hx of knee surgery 1 total knee replacement right side then additional 3 surgeries on the right knee Hx of tubal ligation Family History Mother Stroke Social History Smoking and tobacco status: former smoker Alcohol intake: never Household members: family Marital status: Current occupational status: disabled History of recent travel: No Physical Exam Const: COMMON NORMALS: no acute distress, patient oriented x3 and healthy appearing HENMT: COMMON NORMALS: normocephalic and atraumatic HEAD & SCALP: normocephalic and atraumatic Eye: COMMON NORMALS: Equal, round and reactive pupils present and EOMs intact bilaterally PUPIL: Yes Equal, round and reactive pupils present Neck/C-Spine: COMMON NORMALS: full ROM and supple Chest: COMMONS NORMALS: normal inspection of the chest and normal palpation of entire chest wall Resp: COMMON NORMALS: normal respiratory effort, No retractions, No use of accessory muscles and clear to auscultation bilaterally AUSCULTATION: clear to auscultation bilaterally Cardio: COMMON NORMALS: regular rate, regular rhythm and No murmurs present (Cardio) RATE: regular rate RHYTHM: regular rhythm GI: COMMON NORMALS: Normal to inspection, nondistended, normoactive bowel sounds present, Soft to palpation, non-tender and no masses PALPATION: Yes Soft to palpation Extremity: COMMON NORMALS: normal to inspection and full ROM Neuro: COMMON NORMALS: patient oriented x3, moves all extremities and no focal motor deficits Psych: COMMON NORMALS: mental status grossly normal, Normal thought process present and cooperative THOUGHT PROCESS: Normal thought process present Skin: COMMON NORMALS: no rashes or lesions noted and no wounds GENERAL SKIN EXAM: no rashes or lesions noted Course Vital Signs: Vital signs: Vital Signs Pulse Rate 76 08/15/22 18:55 Respiratory Rate 16 08/15/22 18:55 Blood Pressure 107/55 08/15/22 18:55 Pulse Oximetry 94 08/15/22 18:55 Oxygen Delivery Me thod 08/15/22 18:55 MDM - Seizure MDM Narrative Medical decision making narrative: Patient presents here with seizure she has had 2 seizures over the last 6 months we will get her follow-up with a neurologist we will start her on Keppra at this time as well her CT head and blood work are normal she has been well-appearing here she is stable for discharge. Lab Data 08/15/22 18:51 Labs: Radiology Impressions Head CT 08/15/22 18:22 IMPRESSION: No acute intracranial abnormality. Laboratory Results Sodium 136 mmol/L (136-145) 08/15/22 18:51 Potassium 4.1 mmol/L (3.5-5.1) 08/15/22 18:51 Chloride 103 mmol/L (98-107) 08/15/22 18:51 Carbon Dioxide 22 mmol/L (22-29) 08/15/22 18:51 Anion Gap 15.1 (5-19) 08/15/22 18:51 BUN 16 mg/dL (6-20) 08/15/22 18:51 Creatinine 0.9 mg/dL (0.5-0.9) 08/15/22 18:51 GFR Calculation 66.8 mL/min (90-130) L 08/15/22 18:51 Glucose 128 mg/dL (65-115) H 08/15/22 18:51 Calculated Osmolality 285 mOsm/kg (285-295) 08/15/22 18:51 Calcium 9.4 mg/dL (8.5-10.5) 08/15/22 18:51 Discharge Plan Discharge Patient Disposition: Home Clinical Impression: Generalized seizure Condition: Stable Prescriptions: New Keppra 500 mg tablet 500 mg PO Q12H Qty: 60 0RF No Action Janumet 50-1,000 mg tablet 1 tab PO BID gabapentin 100 mg capsule 100 mg PO TID 30 Days Qty: 90 1RF Hold Instructions: Patient No Longer Taking diazepam [Valium] 5 mg tablet 5 mg PO BID PRN (Reason: anxiety) 1 Days Qty: 2 0RF lisinopril 5 mg tablet 5 mg PO DAILY Qty: 90 1RF metoprolol tartrate 25 mg tablet 25 mg PO BID@0900,2100 Qty: 180 1RF ergocalciferol (vitamin D2) [Vitamin D2] 1,250 mcg (50,000 unit) capsule 50,000 unit PO Q7D Rx Instructions: on fridays magnesium 500 mg Tablet 500 mg PO BEDTIME melatonin 10 mg Tablet 10 mg PO BEDTIME PRN (Reason: Sleep) diclofenac sodium [Voltaren Arthritis Pain] 1 % gel 4 g topical QID Qty: 100 0RF Rx Instructions: apply to single knee, ankle, foot; for foot includes sole/toes/top of foot ondansetron HCl 4 mg Tablet 4 mg PO TID PRN (Reason: Nausea) hydrocodone-acetaminophen 10-325 mg tablet 1 tab PO QID PRN (Reason: Pain) aspirin 81 mg Tablet,Delayed Release (Dr/Ec) 81 mg PO DAILY Qty: 30 0RF atorvastatin 40 mg tablet 80 mg PO BEDTIME Qty: 60 0RF Discharge Orders: Discharge ED (Routine); Ordered 08/15/22 Ordered By: Margarita Loja Referrals: Gabby Cedeno MD [Physician] - 1-3 days Mis Womack PA [Primary Care Provider] - Discharge Diet: Advance as tolerated Discharge Activity: Resume usual activity Patient Instructions: Recurrent Seizures in Adults (ED) Coding Level of Care Code ED Border Inspector for Chg Fwd Exam Comprehensive
[2022-08-15 18:44] VITALS: BP 122/74; PULSE 74; RESP 18; O2SAT 98
[2022-08-15 18:55] VITALS: BP 107/55; PULSE 76; RESP 16; O2SAT 94
[2022-08-15 19:28] LABS: Anion Gap 15.1 (5-19); Blood Urea Nitrogen 16 mg/dL (6-20); Calcium 9.4 mg/dL (8.5-10.5); Carbon Dioxide 22 mmol/L (22-29); Chloride 103 mmol/L (98-107); Glomerular Filtration Rate 66.8 mL/min (90-130); Glucose 128 mg/dL (65-115); Osmolality Calculated 285 mOsm/kg (285-295); Potassium 4.1 mmol/L (3.5-5.1); Sodium 136 mmol/L (136-145)
[2022-08-15 19:40] VITALS: BP 126/55; PULSE 80; RESP 17; O2SAT 97
== END 2022-08-15 19:45 | disposition home or self-care (01) ==
PROVIDERS: Emergency Provider Emergency Medicine; PCP Physician Assistant
DX: G40.89 Other seizures (principal); Z79.82 Long term (current) use of aspirin; E78.5 Hyperlipidemia, unspecified; E11.9 Type 2 diabetes mellitus without complications; Z87.891 Personal history of nicotine dependence
CPT/HCPCS: 36415; 70450; 80048; 96365; 99285; J1953

== ENCOUNTER → 2022-08-19 10:50 | Outpatient (BNVA) | payer MEDICARE, MEDICAID, SELFPAY | PROVIDERS: PCP Physician Assistant; Visit Provider Internal Medicine Cardiovascular Disease | DX: R55 Syncope and collapse (principal); R56.9 Unspecified convulsions; I51.81 Takotsubo syndrome; E11.9 Type 2 diabetes mellitus without complications; Z79.84 Long term (current) use of oral hypoglycemic drugs; E78.5 Hyperlipidemia, unspecified; Z87.891 Personal history of nicotine dependence | CPT/HCPCS: 99214 ==

== ENCOUNTER 2022-11-05 10:49 | Outpatient (CLI) | payer MEDICARE, MEDICAID, SELFPAY ==
[2022-11-05 11:47] LABS: Anion Gap 15.1 (5-19); Blood Urea Nitrogen 12 mg/dL (6-20); Calcium 8.4 mg/dL (8.5-10.5); Carbon Dioxide 25 mmol/L (22-29); Chloride 105 mmol/L (98-107); Glomerular Filtration Rate 66.8 mL/min (90-130); Glucose 160 mg/dL (65-115); Magnesium 1.7 mg/dL (1.7-2.3); Osmolality Calculated 295 mOsm/kg (285-295); Potassium 4.1 mmol/L (3.5-5.1); Sodium 141 mmol/L (136-145)
== END 2022-11-05 10:50 | disposition home or self-care (01) ==
LOC: LAB 10:54
PROVIDERS: PCP Physician Assistant; Visit Provider Physician Assistant
DX: E87.5 Hyperkalemia (principal)
CPT/HCPCS: 80048; 83735

== ENCOUNTER → 2022-12-28 08:10 | Outpatient (BNVA) | payer MEDICARE, MEDICAID, SELFPAY | PROVIDERS: PCP Physician Assistant; Referring Provider Physician Assistant; Visit Provider Specialist | DX: G40.309 Generalized idiopathic epilepsy and epileptic syndromes, not intractable, without status epilepticus (principal); G57.31 Lesion of lateral popliteal nerve, right lower limb; G43.711 Chronic migraine without aura, intractable, with status migrainosus; Z98.890 Other specified postprocedural states | CPT/HCPCS: 99204 ==

== ENCOUNTER → 2023-01-21 07:51 | Outpatient (BNVA) | payer MEDICARE, SELFPAY | PROVIDERS: PCP Physician Assistant; Referring Provider Specialist; Visit Provider Specialist | DX: G40.309 Generalized idiopathic epilepsy and epileptic syndromes, not intractable, without status epilepticus (principal); G43.711 Chronic migraine without aura, intractable, with status migrainosus | CPT/HCPCS: 95812; 95813 ==

== ENCOUNTER → 2023-03-03 09:53 | Outpatient (BNVA) | payer MEDICARE, SELFPAY | PROVIDERS: PCP Physician Assistant; Visit Provider Internal Medicine Cardiovascular Disease | DX: I51.81 Takotsubo syndrome (principal); I25.10 Atherosclerotic heart disease of native coronary artery without angina pectoris; R56.9 Unspecified convulsions; R55 Syncope and collapse; E11.9 Type 2 diabetes mellitus without complications; R94.30 Abnormal result of cardiovascular function study, unspecified; Z87.891 Personal history of nicotine dependence; Z79.84 Long term (current) use of oral hypoglycemic drugs | CPT/HCPCS: 99214 ==

== ENCOUNTER 2023-03-11 08:09 | Outpatient (CLI) | payer MEDICARE, SELFPAY ==
--- NOTE | 2023-03-11 08:45 | USCV_ITS ---
Nhi Alonso Age: 47 Gender: F : 1975 Exam Date: 03/11/2023 08:57 Ordering Phys: Gaurav Ortiz MD ([email or web address]) Technologist: Analilia Funes [place] [facility] [place]: [place] BP: 115 / 76 HR: 72 Rhythm: Sinus Technical Quality: Good MEASUREMENTS (Male / Female) Normal Values 2D ECHO LV Diastolic Diameter PLAX 4.2 cm 4.2 - 5.9 / 3.9 - 5.3 cm LV Systolic Diameter PLAX 2.5 cm IVS Diastolic Thickness 1.1 cm 0.6 - 1.0 / 0.6 - 0.9 cm IVS Systolic Thickness 1.7 cm LVPW Diastolic Thickness 1.1 cm 0.6 - 1.0 / 0.6 - 0.9 cm LVPW Systolic Thickness 1.7 cm LVOT Diameter 2.0 cm LV Ejection Fraction 2D Teich 72.3 % LV Ejection Fraction MOD 2C 60.5 % LV Ejection Fraction 2C AL 60.4 % LA Diameter 2.8 cm LA Width 2.3 cm LA Height 3.7 cm RA Width 2.6 cm RA Height 3.6 cm Aorta at Sinotubular Diameter 2.9 cm IVC Diameter 1.5 cm M-MODE Aortic Annulus Diameter 2.6 cm LA Ao Ratio MM 1.2 MV E Point Septal Separation 0.3 cm DOPPLER AV Peak Velocity 131.0 cm/s LVOT Peak Velocity 91.0 cm/s AV Area Cont Eq vti 2.0 cm squared AV Area Cont Eq pk 2.2 cm squared MV Peak Velocity 69.0 cm/s MV Area PHT 3.1 cm squared Mitral E to A Ratio 0.9 MV E' Velocity 35.5 cm/s Mitral E to MV E' Ratio 5.4 Mitral E to LV E' Lateral Ratio 5.7 Mitral E to LV E' Septal Ratio 5.2 TR Peak Velocity 86.0 cm/s TR Peak Gradient 3.0 mmHg Right Atrial Pressure 5.0 mmHg Pulmonary Artery Systolic Pressu 8.0 mmHg PV Peak Velocity 91.0 cm/s RV Acceleration Time 0.1 s RV Ejection Time 0.3 s RV AcT/ET 0.5 FINDINGS Left Ventricle Normal left ventricular size and systolic function, EF 58 %. No regional wall motion abnormalities. Mild left ventricular hypertrophy. Right Ventricle The right ventricle is normal in size and function. Right Atrium The right atrium is normal in size. Left Atrium The left atrium is normal in size. Mitral Valve No gross abnormalities noted Aortic Valve Thickened aortic valve. Tricuspid Valve Trace to mild tricuspid valve regurgitation. Pulmonic Valve No gross abnormalities noted Pericardium Normal pericardium without effusion. Aorta Normal ascending aorta dimension. IVC Normal inferior vena cava. CONCLUSIONS Normal left ventricular size and systolic function, EF 58 %. No regional wall motion abnormalities. Mild left ventricular hypertrophy. Thickened aortic valve. Trace to mild tricuspid valve regurgitation. Estimated pulmonary artery peak systolic pressure, within normal limit There is no pericardial effusion. There are no intracardiac masses. No similar previous studies are available for comparison Dr Gaurav Ortiz MD FACC (Electronically Signed) Final Date: 12 March 2023 14:14 S
== END 2023-03-11 08:10 | disposition home or self-care (01) ==
LOC: RAD 08:15
PROVIDERS: PCP Physician Assistant; Visit Provider Internal Medicine Cardiovascular Disease
DX: R94.30 Abnormal result of cardiovascular function study, unspecified (principal); I08.2 Rheumatic disorders of both aortic and tricuspid valves
CPT/HCPCS: 93306

== ENCOUNTER → 2023-03-29 08:38 | Outpatient (BNVA) | payer MEDICARE, SELFPAY | PROVIDERS: PCP Physician Assistant; Visit Provider Specialist | DX: G40.309 Generalized idiopathic epilepsy and epileptic syndromes, not intractable, without status epilepticus; G43.711 Chronic migraine without aura, intractable, with status migrainosus | CPT/HCPCS: 99214 ==

== ENCOUNTER → 2023-05-10 15:30 | Outpatient (BNVA) | payer MEDICARE, SELFPAY | PROVIDERS: PCP Physician Assistant; Visit Provider Specialist | DX: G40.309 Generalized idiopathic epilepsy and epileptic syndromes, not intractable, without status epilepticus; G43.711 Chronic migraine without aura, intractable, with status migrainosus; G57.30 Lesion of lateral popliteal nerve, unspecified lower limb | CPT/HCPCS: 99213 ==

== ENCOUNTER 2023-07-14 09:26 | Outpatient (RCR) | payer MEDICARE, SELFPAY | END 2023-08-08 23:59 | disposition home or self-care (01) | LOC: SPT 09:26 | PROVIDERS: PCP Physician Assistant; Visit Provider General Practice | DX: G89.4 Chronic pain syndrome (principal); M54.50 Low back pain, unspecified; R26.89 Other abnormalities of gait and mobility | CPT/HCPCS: 97110; 97161 ==

== ENCOUNTER 2023-08-09 06:00 | Outpatient (RCR) | payer MEDICARE, SELFPAY | END 2023-09-08 23:59 | disposition home or self-care (01) | LOC: SPT 06:00 | PROVIDERS: PCP Physician Assistant; Visit Provider General Practice | DX: G89.4 Chronic pain syndrome (principal); M54.50 Low back pain, unspecified; R26.89 Other abnormalities of gait and mobility | CPT/HCPCS: 97110 ==

== ENCOUNTER 2023-09-01 12:49 | Emergency (ER) | payer MEDICARE, MEDICAID, SELFPAY ==
--- NOTE | 2023-09-01 12:51 | XRR_ITS ---
PROCEDURE INFORMATION: Exam: XR Left Shoulder Exam date and time: 09/01/2023 1:14 PM Age: 47 years old Clinical indication: Pain and injury or trauma; Fall; Blunt trauma (contusions or hematomas); Shoulder; Left TECHNIQUE: Imaging protocol: Radiologic exam of the left shoulder. Views: 2 or more views. COMPARISON: CR (CHEST, ) 07/05/2022 12:50 AM FINDINGS: Bones/joints: No acute fracture or dislocation. Joint spaces are preserved. Soft tissues: Normal. XR/XR shoulder LT min 2V* [id number] IMPRESSION: No acute fracture or dislocation.
[2023-09-01 13:10] VITALS: BP 105/72; PULSE 76; RESP 16; TEMP 36.8; O2SAT 98; BMI 25.0
[2023-09-01 13:25] VITALS: BP 101/60; PULSE 72; RESP 15; O2SAT 96
--- NOTE | 2023-09-01 13:54 | ED_ITS ---
HPI - Extremity Problem General: Chief complaint: Extremity Injury, Upper Stated complaint: fall, left shoulder pain Time Seen by Provider: 09/01/23 13:06 Source: patient Mode of arrival: ambulatory Limitations: no limitations History of Present Illness: 47-year-old female states she fell on Mo nday and hit her left shoulder in her bathroom. States she been having some shoulder pain since then especially with movement. She rates her pain a 4 out of 10 denies any other injury denies hitting her head. Associated symptoms: Deny chest pain, fever(s) or rash Review of Systems Const: Denies: fever(s), chills, body aches or change in appetite ENMT: Denies: throat pain or dental pain Card: Denies: chest pain Resp: Denies: dyspnea GI: Denies: abdominal pain, nausea, vomiting or diarrhea Musc: Reports: extremity pain; Denies: neck pain or back pain Skin/Breast: Denies: rash Neuro: Denies: headache(s) PFS ED PFSH: Medical History Dyslipidemia T2DM (type 2 diabetes mellitus) Lumbar stenosis with neurogenic claudication Tobacco abuse counseling Cigar smoker motivated to quit History of DVT (deep vein thrombosis) Intervertebral disc disorder with radiculopathy of lumbosacral region Encounter for long-term opiate analgesic use Opioid contract exists Neuralgia Hx of thrombosis of lower extremity due to blood clots right leg 2017 Long-term use of high-risk medication Facet arthropathy, lumbosacral Chronic pain disorder Surgical History History of tonsillectomy and adenoidectomy History of abdominal surgery 2x History of oophorectomy Complication of feeding tube 10/01/2019 Dr. Javan Mccarty. Change of gastrostomy tube. Hx of colectomy colostomy and reversal 04/1999 placement then reversed 1999 Hx of hysterectomy Hx of knee surgery 1 total knee replacement right side then additional 3 surgeries on the right knee Hx of tubal ligation Arnold-Chiari malformation 01/2018 [facility] Posterior fossa decompression. Family History Mother Stroke Social History Smoking and tobacco/nicotine status: former use of tobacco/nicotine Alcohol intake: never Substance/Drug Use: never Household members: family Marital status: Current occupational status: disabled Physical Exam Const: COMMON NORMALS: no acute distress, patient oriented x3 and healthy appearing HENMT: COMMON NORMALS: normocephalic and atraumatic HEAD & SCALP: normocephalic and atraumatic Neck/C-Spine: COMMON NORMALS: full ROM and supple Chest: COMMONS NORMALS: normal inspection of the chest and normal palpation of entire chest wall Resp: COMMON NORMALS: normal respiratory effort, No retractions, No use of accessory muscles and clear to auscultation bilaterally AUSCULTATION: clear to auscultation bilaterally Cardio: COMMON NORMALS: regular rate, regular rhythm and No murmurs present (Cardio) RATE: regular rate RHYTHM: regular rhythm Extremity: COMMON NORMALS: full ROM NARRATIVE EXTREMITY EXAM: Tenderness over left shoulder no obvious deformity distal pulses intact Neuro: COMMON NORMALS: patient oriented x3, moves all extremities and no focal motor deficits Psych: COMMON NORMALS: mental status grossly normal, Normal thought process present and cooperative THOUGHT PROCESS: Normal thought process present Skin: COMMON NORMALS: no rashes or lesions noted and no wounds GENERAL SKIN EXAM: no rashes or lesions noted Course Vital Signs: Vital signs: Vital Signs Temperature 98.2 F 09/01/23 13:10 Pulse Rate 72 09/01/23 13:25 Respiratory Rate 15 09/01/23 13:25 Blood Pressure 101/60 09/01/23 13:25 Pulse Oximetry 96 09/01/23 13:25 Oxygen Delivery Me thod Room Air 09/01/23 13:25 MDM - Extremity (Nontraumatic) Medical Decision Making Patient presents here with a left shoulder contusion x-ray shows no fracture patient is well-appearing here she is stable for discharge she is to follow-up with PCP and return if worsening she understands agrees to plan. Medical Records I reviewed the patient's medical records. Lab Data Radiology Impressions Shoulder X-Ray 09/01/23 12:51 IMPRESSION: No acute fracture or dislocation. XR interpretation done by ED provider, pending radiology final review Discharge Plan Discharge Patient Disposition: Home Clinical Impression: Contusion of left shoulder Qualifiers: Encounter type: initial encounter Qualified Code(s): S40.012A - Contusion of left shoulder, initial encounter Condition: Stable Prescriptions: New Naprosyn 500 mg tablet 500 mg PO BID PRN (Reason: pain) Qty: 20 0RF No Action Janumet 50-1,000 mg tablet 1 tab PO BID propranolol 20 mg tablet 20 mg PO DAILY Qty: 90 3RF cholecalciferol (vitamin D3) 25 mcg (1,000 unit) capsule 25 mcg PO DAILY escitalopram oxalate 10 mg tablet 10 mg PO DAILY mecobalamin (vitamin B12) 5,000 mcg tablet,chewable 5,000 mcg PO DAILY cinnamon bark [Cinnamon] 500 mg capsule 500 mg PO DAILY biotin 10,000 mcg capsule 10,000 mcg PO BEDTIME ropinirole 0.5 mg tablet 1 mg PO DAILY Nurtec ODT 75 mg tablet,disintegrating 75 mg PO ONCE PRN (Reason: migraine headache) Qty: 10 2RF Keppra 500 mg tablet 500 mg PO Q12H Qty: 180 3RF zonisamide [Zonegran] 100 mg capsule 100 mg PO BID Qty: 180 3RF magnesium 500 mg Tablet 500 mg PO BEDTIME melatonin 10 mg Tablet 10 mg PO BEDTIME PRN (Reason: Sleep) ondansetron HCl 4 mg Tablet 4 mg PO TID PRN (Reason: Nausea) hydrocodone-acetaminophen 10-325 mg tablet 1 tab PO QID PRN (Reason: Pain) aspirin 81 mg Tablet,Delayed Release (Dr/Ec) 81 mg PO DAILY Qty: 30 0RF atorvastatin 40 mg tablet 80 mg PO BEDTIME Qty: 60 0RF Discharge Orders: Discharge ED (Routine); Ordered 09/01/23 Ordered By: Margarita Loja Referrals: Mis Womack PA [Primary Care Provider] - 1-3 days Discharge Diet: Advance as tolerated Discharge Activity: Resume usual activity Patient Instructions: Shoulder Sprain (ED) Coding Level of Care Code ED Upper [place] 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
[2023-09-01 13:59] VITALS: BP 92/64; PULSE 74; O2SAT 96
== END 2023-09-01 14:01 | disposition home or self-care (01) ==
PROVIDERS: Emergency Provider Emergency Medicine; PCP Physician Assistant
DX: S40.012A Contusion of left shoulder, initial encounter (principal); Z79.82 Long term (current) use of aspirin; Z87.891 Personal history of nicotine dependence; E78.5 Hyperlipidemia, unspecified; E11.9 Type 2 diabetes mellitus without complications; W19.XXXA Unspecified fall, initial encounter
CPT/HCPCS: 73030; 99283

== ENCOUNTER → 2023-09-13 10:33 | Outpatient (BNVA) | payer MEDICARE, SELFPAY | PROVIDERS: PCP Physician Assistant; Visit Provider Nurse Practitioner Family | DX: I25.10 Atherosclerotic heart disease of native coronary artery without angina pectoris (principal); I51.81 Takotsubo syndrome; Z87.891 Personal history of nicotine dependence | CPT/HCPCS: 99214 ==

== ENCOUNTER 2023-12-01 09:48 | Outpatient (CLI) | payer MEDICARE, SELFPAY ==
--- NOTE | 2023-12-01 09:53 | MM_ITS ---
WS: [id number] SCREENING DIGITAL TOMOSYNTHESIS MAMMOGRAM WITH CAD HISTORY: SCREENING COMPARISON: 12/10/2021, 09/14/2019 Bilateral CC and MLO with tomosynthesis views submitted. Synthetic mammography reviewed. Computer aid ed detection analyzed. Breast composition: There are scattered areas of fibroglandular density. No suspicious masses, microc alcifications or architectural distortion. Benign rodlike calcifications LEFT breast. IMPRESSION: MM/[place] [id number] BI-RADS: 2-Benign FOLLOW UP: 1 Year Follow-up
== END 2023-12-01 09:49 | disposition home or self-care (01) ==
LOC: RAD 09:50
PROVIDERS: PCP Physician Assistant; Visit Provider Physician Assistant
DX: Z12.31 Encounter for screening mammogram for malignant neoplasm of breast (principal)
CPT/HCPCS: 77063; 77067

== ENCOUNTER → 2023-12-10 15:07 | Outpatient (BNVA) | payer MEDICARE, SELFPAY | PROVIDERS: PCP Physician Assistant; Visit Provider Specialist | DX: Z72.820 Sleep deprivation (principal); G40.309 Generalized idiopathic epilepsy and epileptic syndromes, not intractable, without status epilepticus; G43.711 Chronic migraine without aura, intractable, with status migrainosus | CPT/HCPCS: 99214 ==

== ENCOUNTER → 2024-06-20 16:08 | Outpatient (BNVA) | payer MEDICARE, SELFPAY | PROVIDERS: PCP Physician Assistant; Visit Provider Internal Medicine Cardiovascular Disease | DX: I51.81 Takotsubo syndrome (principal); F17.200 Nicotine dependence, unspecified, uncomplicated; Z86.718 Personal history of other venous thrombosis and embolism | CPT/HCPCS: 99213 ==

== ENCOUNTER 2024-12-08 12:15 | Outpatient (CLI) | payer MEDICARE, SELFPAY ==
--- NOTE | 2024-12-08 12:24 | XR_ITS ---
WS: [id number] SCREENING DEXA SCAN [employer] CLINICAL INFORMATION: POSTMENOPAUSAL COMPARISON: 2019 FINDINGS: The L1-L4 bone mineral density measures 1.131 g/cm2. This corresponds to a T score score of -0.4 and Z score of -0.2. Left femoral neck bone mineral density measures 0.764 g/cm2. This corresponds to a T score of -1.9 and Z score of -1.7. Right femoral neck bone mineral density measures 0.670 g/cm2. This corresponds to a T score -2.7of and Z score of -2.4. Mean femoral neck bone mineral density measures 0.717 g/cm2. This corresponds to a T score of -2.3 and Z score of -2.0. XR/XR DEXA axial skeleton* [id number] IMPRESSION: Normal bone mineralization lumbar spine. Osteopenia femoral necks. Patient's FRAX calculated 10 year probability for major osteoporotic fracture i s 16.9% and osteoporotic hip fracture is 9.6%.
--- NOTE | 2024-12-08 12:24 | MM_ITS ---
WS: [id number] BILATERAL 3D TOMOSYNTHESIS DIGITAL SCREENING MAMMOGRAPHY WITH CAD CLINICAL INFORMATION: SCREENING HISTORY: Screening mammogram. No current complaints. COMPARISON: 2023 TECHNIQUE: Bilateral CC and MLO views. FINDINGS: Scattered fibroglandular densities bilaterally. No suspicious focal mass, asymmetry, calcifications, or architectural distortion. No evidence of malignancy. A few benign calcifications. MM/MM scr tomosynthesis [id number] IMPRESSION: DENSITY: There are scattered areas of fibroglandular density. BI-RADS: 2 - Benign. FOLLOW UP: 1 Year Follow-up Recommend return to annual screening mammography.
== END 2024-12-08 12:16 | disposition home or self-care (01) ==
PROVIDERS: PCP Physician Assistant; Visit Provider Physician Assistant
DX: Z12.31 Encounter for screening mammogram for malignant neoplasm of breast (principal); Z78.0 Asymptomatic menopausal state; R92.323 Mammographic fibroglandular density, bilateral breasts; R92.1 Mammographic calcification found on diagnostic imaging of breast; M85.88 Other specified disorders of bone density and structure, other site
CPT/HCPCS: 77063; 77067; 77080

== ENCOUNTER → 2025-02-08 07:54 | Outpatient (BNVA) | payer MEDICARE, SELFPAY | PROVIDERS: PCP Physician Assistant; Visit Provider Specialist | DX: G40.309 Generalized idiopathic epilepsy and epileptic syndromes, not intractable, without status epilepticus (principal); Z72.820 Sleep deprivation; G43.711 Chronic migraine without aura, intractable, with status migrainosus | CPT/HCPCS: 99212 ==

== ENCOUNTER 2025-06-08 08:12 | Outpatient (CLI) | payer MEDICARE, MEDICAID, SELFPAY ==
--- NOTE | 2025-06-08 08:20 | CT_ITS ---
WS: [id number] LDCT LUNG CANCER SCREENING HISTORY: HX OF TOBACCO USE TECHNIQUE: Axial imaging performed from the apices to 1 cm below the costophrenic angles. Coronal and sagittal reformats are submitted with axial MIP series. All CT scans at [facility] use at least one of these dose optimization techniques: automated exposure control; mA and/or kV adjustment per patient size (includes targeted exams where dose is matched to clinical indication); or iterative reconstruction. DLP: 71.81 mGy.cm DIvol: Mean CTDIvol: 1.40 (mGy) COMPARISON: 05/01/2022 Diagnostic quality: Satisfactory Lungs: Mild pulmonary hyperexpansion. Thin linear scar at the LEFT lung base. No mass or nodule. No endobronchial lesions. Heart: Normal size heart with no pericardial effusion.. Other findings: Densely calcified subcarinal and RIGHT hilar lymph nodes. Normal size aorta and pulmonary artery. Mild atherosclerosis aorta. Mild thyromegaly. Small benign-appearing axillary lymph nodes. No adrenal mass. CT/CT lung screening [id number] IMPRESSION: LUNG-RADS: 1-Negative FOLLOW UP: 12 Month: Continue annual screening with LDCT OTHER FINDINGS (S MODIFIER): None.
== END 2025-06-08 08:13 | disposition home or self-care (01) ==
PROVIDERS: PCP Physician Assistant; Visit Provider Physician Assistant
DX: Z12.2 Encounter for screening for malignant neoplasm of respiratory organs (principal); Z87.891 Personal history of nicotine dependence; J98.4 Other disorders of lung; I70.0 Atherosclerosis of aorta; E01.0 Iodine-deficiency related diffuse (endemic) goiter; D36.0 Benign neoplasm of lymph nodes
CPT/HCPCS: 71271